=== PATIENT | female | born 1935 | race Caucasian/White ===

== ENCOUNTER → 2016-08-23 | Outpatient (CLI) | payer MEDICARE ==
[~2016-08-23] MED LIST: SODIUM CHLORIDE 0.9% 250 ML in EMPTY BAG 1 BAG IV PRN; SODIUM CHLORIDE 0.9% 500 ML in EMPTY BAG 1 BAG IV PRN; ZOLEDRONIC ACID 5 MG in SODIUM CHLORIDE 0.9% 100 ML IV ONE
[2016-08-23 07:56] VITALS: BP 125/58; PULSE 53; RESP 16; TEMP 97.8
== END | disposition home or self-care (01) ==
LOC: PROCWHC3 07:44
PROVIDERS: ATTEND Internal Medicine Rheumatology
DX: M81.0 Age-related osteoporosis without current pathological fracture (principal)
CPT/HCPCS: 96365; J3489

== ENCOUNTER → 2016-11-26 | Outpatient (CLI) | payer MEDICARE ==
--- NOTE | 2016-11-26 14:37 | MR ---
EXAMINATION TYPE: MR thoracic spine wo/w con DATE OF EXAM: 11/26/2016 COMPARISON: 11/16/2010 HISTORY: radiculopathy tsp CONTRAST: Standard multiplanar, multisequence MRI departmental protocol utilizing 7.5 mL intravenous Gadavist g adolinium contrast. FINDINGS: T2/T1 hyperintense vertebral body hemangiomas are again seen at T3, C6, C7 and T12. There i s redemonstration of compression deformity of the T11 vertebral body with unchanged height loss of ap proximately 50% and 2.4 mm retropulsion. This creates mild spinal canal stenosis at this level. No ab normal cord signal is seen at this level. Multilevel degenerative endplate changes are seen, most pronounced at the T10 inferior endplate just superior to the compression deformity. No abnormal bone marrow signal is seen as well as no abnormal enhancement. Exams overall unchanged with no new compression fractures or disc herniation. Anterior spondylosis is again seen. Again mild degenerative disc disease is present throughout the lumbar spine. IMPRESSION: 1. Unchanged compression deformity of the T11 vertebral body with approximately 50% height loss and 2 .4 mm retropulsion crating mild spinal canal stenosis. No abnormal enhancement or abnormal spinal cor d signal. 2. Mild multilevel degenerative disc disease without focal disc herniation. No progression from the p rior exam.
== END | disposition home or self-care (01) ==
LOC: RADMRIMAIN 07:09
PROVIDERS: ATTEND Anesthesiology
DX: M51.14 Intervertebral disc disorders with radiculopathy, thoracic region (principal); M43.8X4 Other specified deforming dorsopathies, thoracic region
CPT/HCPCS: 72157; A9581

== ENCOUNTER → 2016-12-16 | Outpatient (CLI) | payer MEDICARE ==
--- NOTE | 2016-12-17 14:23 | MM ---
Reason for exam: screening (asymptomatic). Last mammogram was performed 1 year and 1 month ago. History: Patient is postmenopausal. Family history of premenopausal breast cancer in sister and breast cancer in mother. Benign excisional biopsy of the left breast, 1963. Benign excisional biopsy of the left breast, 1961. Took estrogen for 1 year beginning at age 52. Physical Findings: A clinical breast exam by your physician is recommended on an annual basis and results should be correlated with mammographic findings. MG 3D Screening Mammo W/Cad Bilateral CC and MLO view(s) were taken. Prior study comparison: November 03, 2015, bilateral MG 3d screening mammo w/cad. October 31, 2014, bilateral MG screening mammo w CAD. No suspicious abnormality. Chronic left upper outer quadrant skin retraction similar to 11/25/11. No significant changes when compared with prior studies. ASSESSMENT: Benign, BI-RAD 2 RECOMMENDATION: Routine screening mammogram of both breasts in 1 year.
== END ==
LOC: RADMAMWWP 10:17
PROVIDERS: ATTEND Obstetrics & Gynecology
DX: Z12.31 Encounter for screening mammogram for malignant neoplasm of breast (principal)
CPT/HCPCS: 77063; G0202

== ENCOUNTER → 2017-07-02 | Outpatient (CLI) | payer MEDICARE ==
--- NOTE | 2017-07-02 10:21 | MR ---
EXAMINATION TYPE: MR brain wo/w con DATE OF EXAM: 07/02/2017 10:02 AM COMPARISON: Previous CT scan of the brain dated 12/15/2015 HISTORY: Dizziness, unsteady gait TECHNIQUE: Multiplanar, multiecho imaging of the brain was obtained with and without intravenous adm inistration of 7.5 mL intravenous Gadavist. FINDINGS: There are mild, generalized changes of sulcal prominence and ventriculomegaly, compatible w ith atrophic change. Midline structures are unremarkable. There is a normal craniocervical junction. Echoplanar diffusion imaging is normal. There are normal vascular flow voids. The orbits are unremarkable. There is no evidence of a CP angle mass lesion. There is a prominent Virchow-Minnie space on the left, unchanged from the patient's previous CT scan. There is an area of encephalomalacia in the posterior right parietal lobe. There is mild ex vacuo enl argement of the occipital horn of the lateral ventricle. There is both diffuse and punctate periventr icular white matter change. There is no mass effect, midline shift or intracranial blood. IMPRESSION: 1. NO ACUTE INTRACRANIAL ABNORMALITY. 2. ATROPHIC CHANGE. 3. BOTH PUNCTATE AND CONFLUENT PERIVENTRICULAR WHITE MATTER CHANGE, MOST LIKELY ON THE BASIS OF SMALL VESSEL DISEASE AND CHRONIC ISCHEMIC CHANGE. OTHER CAUSES OF DEMYELINATION ARE NOT EXCLUDED. 4. 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 5. 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
== END | disposition home or self-care (01) ==
LOC: RADMRIMAIN 08:38
PROVIDERS: ATTEND Internal Medicine Hematology & Oncology
DX: G31.9 Degenerative disease of nervous system, unspecified (principal); R90.89 Other abnormal findings on diagnostic imaging of central nervous system; R42 Dizziness and giddiness; R26.81 Unsteadiness on feet
CPT/HCPCS: 82565; 70553; 36415; A9581

== ENCOUNTER → 2017-09-30 | Outpatient (CLI) | payer MEDICARE, BC ==
[2017-09-30 14:56] LABS: INR 1.5 (<1.2); Partial Thromboplastin Time 31.7 sec (22.0-30.0); Prothrombin Time 14.1 sec (9.0-12.0)
[2017-09-30 15:03] LABS: ALT 68 U/L (9-52); AST 57 U/L (14-36); Albumin 3.3 g/dL (3.5-5.0); Alkaline Phosphatase 59 U/L (38-126); Anion Gap 9 mmol/L; Blood Urea Nitrogen 13 mg/dL (7-17); Calcium 8.6 mg/dL (8.4-10.2); Carbon Dioxide 25 mmol/L (22-30); Chloride 105 mmol/L (98-107); Glucose 175 mg/dL (74-99); Potassium 4.4 mmol/L (3.5-5.1); Sodium 139 mmol/L (137-145); Total Bilirubin 0.5 mg/dL (0.2-1.3); Total Protein 5.5 g/dL (6.3-8.2)
[2017-09-30 20:24] LABS: Cardiolipin Ab IgG Interp NEGATIVE (NEGATIVE); Cardiolipin Ab IgM Interp NEGATIVE (NEGATIVE); Cardiolipin IgA Antibody 0.6 U/mL; Cardiolipin IgM Antibody 0.4 U/mL
[2017-10-01 00:30] LABS: Hemoglobin A1C 5.1 % (4.0-6.0)
[2017-10-03 13:43] LABS: APTT 53 Sec(s) (<43); APTT 1:1 Mix 45 Sec(s) (<43); DRVVT 1:1 Mix 63 Sec(s) (<44); DRVVT Confirmation Positive (Negative); Dilute Russell Viper Venom 92 Sec(s) (<44); Hexagonal Phase Neutralization Negative (Negative)
== END | disposition home or self-care (01) ==
LOC: LABWHC1 14:24
PROVIDERS: ATTEND Internal Medicine Rheumatology
DX: I67.9 Cerebrovascular disease, unspecified (principal); M81.0 Age-related osteoporosis without current pathological fracture
CPT/HCPCS: 36415; 80053; 82607; 82747; 83036; 83090; 85598; 85610; 85613; 85652; 85730; 85732; 86147

== ENCOUNTER → 2017-10-13 | Outpatient (CLI) | payer MEDICARE, BC ==
[~2017-10-13] MED LIST changes: -SODIUM CHLORIDE 0.9% 250 ML in EMPTY BAG 1 BAG IV PRN; +ZOLEDRONIC ACID 5 MG in SODIUM CHLORIDE 0.9% 100 ML IV NR; -ZOLEDRONIC ACID 5 MG in SODIUM CHLORIDE 0.9% 100 ML IV ONE
[2017-10-13 14:35] VITALS: BP 115/72; PULSE 74; RESP 18; TEMP 97.4
== END | disposition home or self-care (01) ==
LOC: PROCWHC3 13:51
PROVIDERS: ATTEND Internal Medicine Rheumatology
DX: M81.0 Age-related osteoporosis without current pathological fracture (principal)
CPT/HCPCS: 96365; J3489

== ENCOUNTER → 2018-06-26 | Outpatient (CLI) | payer MEDICARE, BC ==
--- NOTE | 2018-06-26 16:49 | BD ---
EXAMINATION TYPE: Axial Bone Density DATE OF EXAM: 06/26/2018 COMPARISON: NONE CLINICAL HISTORY: Height: 5 ft 3 in Weight: 171 FRAX RISK QUESTIONS: History of Fracture in Adulthood: YES Secondary Osteoporosis: 3. Menopause before 45: YES RISK FACTORS HISTORY OF: Surgery to Spine/Hip(right/left)/Wrist (right/left): FX TO RT FEMUR METAL GOES INTO RT HIP When: 6-7 YEARS AGO Active: YES Postmenopausal woman: PART HYST AGE 34 Lost more than 2 inches in height since high school: UNSURE MEDICATIONS: Additional Medications: METOPROLOLTARTRATE ,GABAPENTIN,XARELTO, HYDROCODONE, AMTITRIPTYLINE, VIT D3, CALCIUM, MECLIZINE, FOCUS MACULAPRO, ROPINIROLE HC, Additional History: EXAM MEASUREMENTS: Bone mineral densitometry was performed using the [employer] System. Bone mineral density as measured about the Lumbar spine is: ----- L1-L4(G/cm2): 0.803 T Score Values are as follows: ----- L2: -3.2 ----- L3: -2.9 ----- L4: -2.9 ----- L1-L4: -3.1 Bone mineral density has: INCREASED 3.1 % since study of: 2015 Bone mineral density about the L hip (g/cm2): 0.665 T Score values are as follows: -----L Neck: -2.7 -----L Total: -2.4 Bone mineral density has: INCREASED 2.5 % since study of: 2015 IMPRESSION: Osteoporosis (T Score less than -2.5). There is increased fracture risk and therapy is usually indicated based on age. Re-Screen 1-2 years. NOTE: T-SCORE=SD OF THE YOUNG ADULT MEAN.
== END | disposition home or self-care (01) ==
LOC: RADBDWWP 09:40
PROVIDERS: ATTEND Internal Medicine Rheumatology
DX: M81.0 Age-related osteoporosis without current pathological fracture (principal)
CPT/HCPCS: 77080

== ENCOUNTER → 2018-10-24 | Outpatient (CLI) | payer MEDICARE, BC ==
[2018-10-24 19:14] LABS: African American GFR (CKD) 94.8 (60.0-200.0); Albumin 3.4 g/dL (3.80-4.90); Albumin/Globulin Ratio 2.13 (1.60-3.17); BUN/Creat Ratio 18.57 Ratio (12.00-20.00); Calcium 8.1 mg/dL (8.7-10.3); Globulin 1.6 g/dL (1.6-3.3); Non-African American GFR(CKD) 81.8 (60.0-200.0); Potassium 4.6 mmol/L (3.5-5.5); Total Bilirubin 0.3 mg/dL (0.2-1.2)
== END | disposition home or self-care (01) ==
LOC: LABWHC1 10:05
PROVIDERS: ATTEND Internal Medicine Rheumatology
DX: G89.4 Chronic pain syndrome (principal)
CPT/HCPCS: 36415; 80053

== ENCOUNTER → 2019-01-01 | Outpatient (CLI) | payer MEDICARE, BC ==
[~2019-01-01] MED LIST changes: +SODIUM CHLORIDE 0.9% 500 ML 500 ML in EMPTY BAG 1 BAG IV PRN; -SODIUM CHLORIDE 0.9% 500 ML in EMPTY BAG 1 BAG IV PRN
[2019-01-01 09:26] VITALS: BP 97/64; PULSE 76; RESP 18; TEMP 97.8
== END | disposition home or self-care (01) ==
LOC: PROCWHC3 09:08
PROVIDERS: ATTEND Internal Medicine Rheumatology
DX: M81.0 Age-related osteoporosis without current pathological fracture (principal)
CPT/HCPCS: 96365; J3489

== ENCOUNTER 2019-06-24 11:07 | Inpatient (IN) | payer BC, MEDICARE ==
[2019-06-24] MEDS ORDERED: SODIUM CHLORIDE 0.9% 1,000 ML IV STA (11:36)
[2019-06-24] MEDS ORDERED: SODIUM CHLORIDE 0.9% 500 ML 500 ML IV STA (11:36)
[2019-06-24 12:28] LABS: Potassium 3.9 mmol/L (3.5-5.1)
[2019-06-24 12:29] LABS: ALT 22 U/L (4-34); AST 32 U/L (14-36); African American GFR (CKD) >90 (>60 ml/min/1.73 sqM); Albumin 2.6 g/dL (3.5-5.0); Alkaline Phosphatase 58 U/L (38-126); Anion Gap 9 mmol/L; Basophils % (A) 0 %; Blood Urea Nitrogen 14 mg/dL (7-17); Calcium 8.2 mg/dL (8.4-10.2); Carbon Dioxide 25 mmol/L (22-30); Chloride 102 mmol/L (98-107); Creatine Kinase 25 U/L (30-135); Eosinophils % (A) 1 %; Glucose 91 mg/dL (74-99); HCT 45.9 % (34.0-46.0); HGB 14.6 gm/dL (11.4-16.0); Lymphocytes # (A) 0.8 k/uL (1.0-4.8); Lymphocytes % (A) 17 %; MCH 33.9 pg (25.0-35.0); MCHC 31.7 g/dL (31.0-37.0); Macrocytosis Moderate; Magnesium 1.7 mg/dL (1.6-2.3); Mean Platelet Volume 15.1; Monocytes # (A) 0.4 k/uL (0-1.0); Monocytes % (A) 8 %; Neutrophils # (A) 3.6 k/uL (1.3-7.7); Neutrophils % (A) 73 %; Non-African American GFR(CKD) 84 (>60 ml/min/1.73 sqM); Platelet Count 123 k/uL (150-450); RBC 4.29 m/uL (3.80-5.40); RDW 14.1 % (11.5-15.5); Sodium 136 mmol/L (137-145); Total Bilirubin 1.4 mg/dL (0.2-1.3); Total Protein 5.3 g/dL (6.3-8.2); WBC 4.9 k/uL (3.8-10.6)
[2019-06-24 12:31] LABS: INR 1.6 (<1.2); Prothrombin Time 15.8 sec (9.0-12.0)
[2019-06-24 12:33] LABS: Appearance,Urine Turbid (Clear); Bacteria,Urine Few /hpf; Bilirubin,Urine Negative (Negative); Blood,Urine Small (Negative); Color,Urine Yellow; Glucose,Urine (UA) Negative (Negative); Hyaline Casts,Urine 22 /lpf (0-2); Ketones,Urine 1+ (Negative); Leukocyte Esterase,Urine Large (Negative); Mucus,Urine Many /hpf; Nitrite,Urine Negative (Negative); PH, Urine 5.5 (5.0-8.0); Protein,Urine 1+ (Negative); RBC,Urine 20 /hpf (0-5); Specific Gravity,Urine 1.025 (1.001-1.035); Squamous Epithelial Cell,Urine 2 /hpf (0-4); WBC,Urine >182 /hpf (0-5)
--- NOTE | 2019-06-24 12:40 | CT ---
EXAMINATION TYPE: CT brain wo con DATE OF EXAM: 06/24/2019 COMPARISON: Previous study dated 12/15/2015. HISTORY: Head trauma, minor, normal mental status CT DLP: 1099.4 mGycm Automated exposure control for dose reduction was used. FINDINGS: There are generalized changes of sulcal prominence and ventriculomegaly, compatible with mild atrophy . There is diffuse periventricular white matter lucency, compatible with small vessel ischemic change . There is no acute focal lesion, mass effect or midline shift identified. I do not see evidence of i ntracranial blood. 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 This is unchanged fr om previous. Visualized portions of the paranasal sinuses are clear. There is been a previous mastoidectomy on the right. There is a small defect in the posterior parietal region on the right. This was also present previously. IMPRESSION: 1. NO ACUTE INTRACRANIAL ABNORMALITY. 2. 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 3. POSTSURGICAL CHANGE. 4. DEGENERATIVE CHANGE.
--- NOTE | 2019-06-24 12:47 | XR ---
EXAMINATION TYPE: XR chest 2V DATE OF EXAM: 06/24/2019 HISTORY: Weakness. REFERENCE: None.. FINDINGS: Heart is upper limits of normal in size. There is increased opacity in both lung apices whi ch may be secondary to the lordotic projection. There is also some questionable increased density in the lower lobes bilaterally. I could not exclude developing pneumonia. Pleural spaces are clear. IMPRESSION: 1. BORDERLINE CARDIOMEGALY. 2. I COULD NOT EXCLUDE DEVELOPING INFILTRATES BILATERALLY.
[2019-06-24 13:06] LABS: Large Platelets Present
[2019-06-24] MEDS ORDERED: cefTRIAXone IN SWFI 1,000 MG/10 ML SYRINGE IVP STA (13:21)
--- NOTE | 2019-06-24 13:22 | ED ---
Weakness HPI - General Chief complaint: Weakness Stated complaint: weakness Time Seen by Provider: 06/24/19 11:19 Source: patient, family, RN notes reviewed Mode of arrival: ambulatory Limitations: physical limitation - History of Present Illness Initial comments: This is a 83-year-old female who presents today with complaints of weakness is been 4 month. She has recently moved back from [place] and has had progressively more weakness decreased appetite decrease oral intake. No overt fevers chills or sweats no overt cough or phlegm production reported this time. She did fall yesterday and today she did strike her head against a door no focal weakness reported. No neck pain. No chest back or abdominal pain at this time. Has had some decreased urine output. No other complaints at this time she just feels weak and doesn't feel good. Additionally she has gained a couple pounds recently in spite of not eating MD Complaint: generalized weakness - Related Data Home Medications Medication Instructions Recorded Confirmed Amitriptyline HCl [Elavil] 75 tab PO HS 10/13/17 06/24/19 Calcium Carbonate/Vitamin D3 1 tab PO DAILY 10/13/17 06/24/19 [Caltrate 600 Plus D3 Tablet] Cholecalciferol [Vitamin D3] 5,000 unit PO DAILY 10/13/17 06/24/19 Gabapentin 300 mg PO QAM 10/13/17 06/24/19 HYDROcodone/APAP 10-325MG [[place] 1 tab PO TID 10/13/17 06/24/19 10-325] Maculapro 1 tab PO DAILY 10/13/17 06/24/19 Meclizine [Antivert] 25 mg PO TID PRN 10/13/17 06/24/19 Metoprolol Tartrate [Lopressor] 50 mg PO BID 10/13/17 06/24/19 Rivaroxaban [Xarelto] 20 mg PO DAILY 10/13/17 06/24/19 rOPINIRole HCL [Requip] 0.5 mg PO QAM 10/13/17 06/24/19 Ergocalciferol (Vitamin D2) 50,000 unit PO ROSS 06/24/19 06/24/19 [Drisdol] Gabapentin 900 mg PO HS 06/24/19 06/24/19 Mirtazapine 7.5 mg PO W/SUPPER 06/24/19 06/24/19 rOPINIRole HCL [Requip] 1 mg PO HS 06/24/19 06/24/19 valACYclovir HCL [Valacyclovir] 1,000 mg PO DAILY 06/24/19 06/24/19 Allergies Allergy/AdvReac Type Severity Reaction Status Date / Time No Known Allergies Allergy Verified 06/24/19 12:03 Review of Systems ROS Statement: Those systems with pertinent positive or pertinent negative responses have been documented in the HPI. ROS Other: All systems not noted in ROS Statement are negative. Past Medical History Past Medical History: Atrial Fibrillation, CVA/TIA, Osteoarthritis (OA) Additional Past Medical History / Comment(s): RLS, CHRONIC PAIN, VERTIGO, MACULAR DEGENERATION History of Any Multi-Drug Resistant Organisms: None Reported Past Surgical History: Adenoidectomy, Appendectomy, Cholecystectomy, Hernia Repair, Hysterectomy, Orthopedic Surgery, Tonsillectomy Additional Past Surgical History / Comment(s): baiatric surgery Past Psychological History: Depression Smoking Status: Never smoker Past Alcohol Use History: None Reported Past Drug Use History: None Reported General Exam - General Exam Comments Initial Comments: This is a well-developed sec appearing female who was awake alert oriented 3 Limitations: physical limitation General appearance: alert, in no apparent distress Head exam: Present: atraumatic, normocephalic, normal inspection Eye exam: Present: normal appearance, PERRL, EOMI. Absent: scleral icterus, conjunctival injection, periorbital swelling ENT exam: Present: mucous membranes dry Neck exam: Present: normal inspection, full ROM, other (No stridor JVD or bruits). Absent: tenderness, meningismus, lymphadenopathy Respiratory exam: Present: decreased breath sounds. Absent: respiratory distress, wheezes, rales, rhonchi, stridor Cardiovascular Exam: Present: tachycardia, irregular rhythm, rubs (Transferred over the mitral valve region). Absent: diastolic murmur, gallop, clicks GI/Abdominal exam: Present: soft, normal bowel sounds. Absent: distended, tenderness, guarding, rebound, rigid Extremities exam: Present: full ROM, normal capillary refill, pedal edema. Absent: tenderness, joint swelling, calf tenderness Back exam: Present: normal inspection Neurological exam: Present: alert, oriented X3, CN II-XII intact Psychiatric exam: Present: normal affect, normal mood Skin exam: Present: warm, dry, intact, normal color. Absent: rash Course Vital Signs 06/24/19 06/24/19 06/24/19 11:10 11:35 12:40 Temperature 97.7 F Pulse Rate 121 H 102 H 98 Respiratory 18 20 20 Rate Blood Pressure 122/79 O2 Sat by Pulse 97 96 96 Oximetry Medical Decision Making - Medical Decision Making I did discuss the findings with the patient as well as her daughter and with Dr. Bolaños. Patient will be admitted for inpatient evaluation evidence of UTI sepsis failure to thrive. Additionally atrial fibrillation with possible pericarditis. - Lab Data Result diagrams: 06/24/19 12:03 06/24/19 12:03 Lab Results 06/24/19 06/24/19 06/24/19 Range/Units 12:03 12:03 12:03 WBC 4.9 (3.8-10.6) k/uL RBC 4.29 (3.80-5.40) m/uL Hgb 14.6 (11.4-16.0) gm/dL Hct 45.9 (34.0-46.0) % MCV 107.0 H (80.0-100.0) fL MCH 33.9 (25.0-35.0) pg MCHC 31.7 (31.0-37.0) g/dL RDW 14.1 (11.5-15.5) % Plt Count 123 L (150-450) k/uL Neutrophils % 73 % Lymphocytes % 17 % Monocytes % 8 % Eosinophils % 1 % Basophils % 0 % Neutrophils # 3.6 (1.3-7.7) k/uL Lymphocytes # 0.8 L (1.0-4.8) k/uL Monocytes # 0.4 (0-1.0) k/uL Eosinophils # 0.0 (0-0.7) k/uL Basophils # 0.0 (0-0.2) k/uL Manual Slide Review Performed Large Platelets Present Macrocytosis Moderate PT 15.8 H (9.0-12.0) sec INR 1.6 H (<1.2) Sodium (137-145) mmol/L Potassium (3.5-5.1) mmol/L Chloride (98-107) mmol/L Carbon Dioxide (22-30) mmol/L Anion Gap mmol/L BUN (7-17) mg/dL Creatinine (0.52-1.04) mg/dL Est GFR (CKD-EPI)AfAm (>60 ml/min/1.73 sqM) Est GFR (CKD-EPI)NonAf (>60 ml/min/1.73 sqM) Glucose (74-99) mg/dL Calcium (8.4-10.2) mg/dL Magnesium (1.6-2.3) mg/dL Total Bilirubin (0.2-1.3) mg/dL AST (14-36) U/L ALT (4-34) U/L Alkaline Phosphatase (38-126) U/L Creatine Kinase (30-135) U/L Troponin I (0.000-0.034) ng/mL NT-Pro-B Natriuret Pep pg/mL Total Protein (6.3-8.2) g/dL Albumin (3.5-5.0) g/dL Lipase (23-300) U/L Urine Color Yellow Urine Appearance Turbid H (Clear) Urine pH 5.5 (5.0-8.0) Ur Specific [place] 1.025 (1.001-1.035) Urine Protein 1+ H (Negative) Urine Glucose (UA) Negative (Negative) Urine Ketones 1+ H (Negative) Urine Blood Small H (Negative) Urine Nitrite Negative (Negative) Urine Bilirubin Negative (Negative) Urine Urobilinogen 3.0 (<2.0) mg/dL Ur Leukocyte Esterase Large H (Negative) Urine RBC 20 H (0-5) /hpf Urine WBC >182 H (0-5) /hpf Urine WBC Clumps Few H (None) /hpf Ur Squamous Epith Cells 2 (0-4) /hpf Urine Bacteria Few H (None) /hpf Hyaline Casts 22 H (0-2) /lpf Urine Mucus Many H (None) /hpf 06/24/19 06/24/19 06/24/19 Range/Units 12:03 12:03 12:03 WBC (3.8-10.6) k/uL RBC (3.80-5.40) m/uL Hgb (11.4-16.0) gm/dL Hct (34.0-46.0) % MCV (80.0-100.0) fL MCH (25.0-35.0) pg MCHC (31.0-37.0) g/dL RDW (11.5-15.5) % Plt Count (150-450) k/uL Neutrophils % % Lymphocytes % % Monocytes % % Eosinophils % % Basophils % % Neutrophils # (1.3-7.7) k/uL Lymphocytes # (1.0-4.8) k/uL Monocytes # (0-1.0) k/uL Eosinophils # (0-0.7) k/uL Basophils # (0-0.2) k/uL Manual Slide Review Large Platelets Macrocytosis PT (9.0-12.0) sec INR (<1.2) Sodium 136 L (137-145) mmol/L Potassium 3.9 (3.5-5.1) mmol/L Chloride 102 (98-107) mmol/L Carbon Dioxide 25 (22-30) mmol/L Anion Gap 9 mmol/L BUN 14 (7-17) mg/dL Creatinine 0.65 (0.52-1.04) mg/dL Est GFR (CKD-EPI)AfAm >90 (>60 ml/min/1.73 sqM) Est GFR (CKD-EPI)NonAf 84 (>60 ml/min/1.73 sqM) Glucose 91 (74-99) mg/dL Calcium 8.2 L (8.4-10.2) mg/dL Magnesium 1.7 (1.6-2.3) mg/dL Total Bilirubin 1.4 H (0.2-1.3) mg/dL AST 32 (14-36) U/L ALT 22 (4-34) U/L Alkaline Phosphatase 58 (38-126) U/L Creatine Kinase 25 L (30-135) U/L Troponin I <0.012 (0.000-0.034) ng/mL NT-Pro-B Natriuret Pep 1720 pg/mL Total Protein 5.3 L (6.3-8.2) g/dL Albumin 2.6 L (3.5-5.0) g/dL Lipase 36 (23-300) U/L Urine Color Urine Appearance (Clear) Urine pH (5.0-8.0) Ur Specific [place] (1.001-1.035) Urine Protein (Negative) Urine Glucose (UA) (Negative) Urine Ketones (Negative) Urine Blood (Negative) Urine Nitrite (Negative) Urine Bilirubin (Negative) Urine Urobilinogen (<2.0) mg/dL Ur Leukocyte Esterase (Negative) Urine RBC (0-5) /hpf Urine WBC (0-5) /hpf Urine WBC Clumps (None) /hpf Ur Squamous Epith Cells (0-4) /hpf Urine Bacteria (None) /hpf Hyaline Casts (0-2) /lpf Urine Mucus (None) /hpf - EKG Data -: EKG Interpreted by Me EKG Comments: EKG shows a atrial fibrillation with a response rate of 98 QRS 94 QT since QTC 328/418 nonspecific T-wave configuration - Radiology Data Radiology results: report reviewed (I did review the imaging and report or is evidence of early bilateral infiltrates the cavity ruled out), image reviewed Disposition Clinical Impression: Urinary tract infection, Dehydration, Failure to thrive syndrome, adult, Pericarditis, Pneumonitis, Atrial fibrillation Disposition: ADMITTED IP TO THIS HOSP Condition: Fair Referrals: Vandana Guevara MD [Primary Care Provider] - 1-2 days
[2019-06-24] MEDS ORDERED: NALOXONE 0.4 MG/ML 1 ML VIAL IV PRN (14:29)
[2019-06-24] MEDS ORDERED: MECLIZINE 25 MG TAB PO PRN (14:31)
[2019-06-24] MEDS ORDERED: ERGOCALCIFEROL 50,000 UNIT CAP PO SCH (15:00)
[2019-06-24] MEDS: HYDROcodone/APAP 10-325MG 1 EACH TAB PO PRN (17:16)
[2019-06-24] MEDS: MIRTAZAPINE 15 MG TAB PO SCH (17:16)
[2019-06-24] MEDS: AMITRIPTYLINE HCL 25 MG TAB PO SCH (20:50)
[2019-06-24] MEDS: METOPROLOL TARTRATE 50 MG TAB PO SCH (20:50)
[2019-06-24] MEDS: GABAPENTIN 300 MG CAP PO SCH (20:50)
--- NOTE | 2019-06-24 21:03 | P.HPIM ---
History of Present Illness H&P Date: 06/24/19 Chief Complaint: Altered mental status, UTI with sepsis, severe generalized weakness, 83-year-old female one of Dr. Guevara's patient with past medical history of CVA, A. fib with RVR, chronic pain syndrome, chronic depression who returned back from [place] with history of 4 month of severe generalized weakness and fatigue with decrease of appetite no fever or chills decrease in urine output severe abnormal balancing gait had fall twice last 24 hours with no major injury hit her head on the door side with no major bruise or hematoma developed to have mild headache with no neck injury. Patient family were overconcern with a significant weight loss apparently made an appointment to see her primary care with some workup did not show any major abnormality. Patient ended up in the emergency department at [facility] today with above complaint was seen and evaluated her white blood cell was normal with the exception of mild thrombocytopenia her urine came back very positive with multiple RBC WBC and leukocyte nitrate positive culture is pending patient was giving 1 dose of IV antibiotics will be admitted to the hospital, CAT scan of the brain didn't show any intracranial hemorrhage but showed an old infarct in the right posterior part of total area which consistent with old stroke also had a scar tissue from mastoidectomy. Chest x-ray showed cardiomegaly with bilateral infiltrate in the bases and as an early pneumonitis. Patient is not running any fever or chills no significant shortness of breath at this point or productive cough. Review of Systems CONSTITUTIONAL: Well-developed no acute respiratory distress. EYES: No icterus sclerae, no conjunctivitis. EARS, NOSE, MOUTH, THROAT, and FACE: No sore throat, lymphadenopathy, carotid bruits or deformity. RESPIRATORY: No SOB cough or wheezes. CARDIOVASCULAR: No CP, Palpitation, PND, Orthopnea, or angina. GASTROINTESTINAL: No Abd pain, Nausea or vomiting, no Diarrhea or constipation, No GI Bleed, no distention or masses. GENITOURINARY: UTI with burning discomfort irritation and frequency. INTEGUMENT/BREAST: Negative for any muscular injury with mild osteoarthritis.. HEMATOLOGIC/LYMPHATIC: Negative for bleed or purpura. MUSCULOSKELTAL: Negative for Myalgia or arthralgia. NEURLOGICAL: Mild altered mental status with slight confusion at time generalized weakness no focal deficit. BEHAVIORAL/PSYCH: Negative. ENDOCRINE: Negative. Past Medical History Past Medical History: Atrial Fibrillation, CVA/TIA, Osteoarthritis (OA) Additional Past Medical History / Comment(s): RLS, CHRONIC PAIN, VERTIGO, M ACULAR DEGENERATION History of Any Multi-Drug Resistant Organisms: None Reported Past Surgical History: Adenoidectomy, Appendectomy, Cholecystectomy, Hernia Repair, Hysterectomy, Orthopedic Surgery, Tonsillectomy Additional Past Surgical History / Comment(s): baiatric surgery Past Psychological History: Depression Smoking Status: Never smoker Past Alcohol Use History: None Reported Past Drug Use History: None Reported - Past Family History Mother History Unknown: Yes Medications and Allergies Home Medications Medication Instructions Recorded Confirmed Type Amitriptyline HCl [Elavil] 75 tab PO HS 10/13/17 06/24/19 History Calcium Carbonate/Vitamin D3 1 tab PO DAILY 10/13/17 06/24/19 History [Caltrate 600 Plus D3 Tablet] Cholecalciferol [Vitamin D3] 5,000 unit PO DAILY 10/13/17 06/24/19 History Gabapentin 300 mg PO QAM 10/13/17 06/24/19 History HYDROcodone/APAP 10-325MG [[place] 1 tab PO TID 10/13/17 06/24/19 History 10-325] Maculapro 1 tab PO DAILY 10/13/17 06/24/19 History Meclizine [Antivert] 25 mg PO TID PRN 10/13/17 06/24/19 History Metoprolol Tartrate [Lopressor] 50 mg PO BID 10/13/17 06/24/19 History Rivaroxaban [Xarelto] 20 mg PO DAILY 10/13/17 06/24/19 History rOPINIRole HCL [Requip] 0.5 mg PO QAM 10/13/17 06/24/19 History Ergocalciferol (Vitamin D2) 50,000 unit PO ROSS 06/24/19 06/24/19 History [Drisdol] Gabapentin 900 mg PO HS 06/24/19 06/24/19 History Mirtazapine 7.5 mg PO W/SUPPER 06/24/19 06/24/19 History rOPINIRole HCL [Requip] 1 mg PO HS 06/24/19 06/24/19 History valACYclovir HCL [Valacyclovir] 1,000 mg PO DAILY 06/24/19 06/24/19 History Allergies Allergy/AdvReac Type Severity Reaction Status Date / Time No Known Allergies Allergy Verified 06/24/19 12:03 Physical Exam Vitals: Vital Signs Temp Pulse Pulse Resp BP BP Pulse Ox 06/24/19 16:20 97.9 F 115 H 109/73 100 06/24/19 14:49 102 H 18 127/81 97 06/24/19 12:40 98 20 96 06/24/19 11:35 102 H 20 96 06/24/19 11:10 97.7 F 121 H 18 122/79 97 Intake and Output 06/24/19 06/24/19 06/24/19 06:59 14:59 22:59 Intake Total 0 Balance 0 Intake: Oral 0 Other: Weight 69.853 kg 69.853 kg General Appearance: Alert, cooperative, no distress, appears stated age. Neck HEENT: Supple, no lymphadenopathy, no thyroid enlargement, no carotid bruits. Lungs: Clear to auscultation without crackles or wheezes no rhonchi, no deformity. Chest Wall: Chest wall normal expansion with deep inspiration no tenderness and no deformity was found on exam, no costochondral pain or discomfort. Heart: Irregular rate and rhythm, S1, S2, positive S3 positive JVD. Back: Symmetric, no curvature, ROM normal, no CVA tenderness. Abdomen: Soft, non-tender, bowel sounds active all four quadrants, no masses, no organomegaly. Extremities: Extremities normal, atraumatic, no cyanosis or edema. Pulses: 2+ and symmetric. Skin: Skin color, texture, tugor normal, no rashes or lesions. Neurologic: Alert oriented with slight confusion, cranial nerves II through XII intact, no motor deficit, slight abnormal balancing gait with generalized weakness overall. Results CBC & Chem 7: 06/24/19 12:03 06/24/19 12:03 Labs: Abnormal Lab Results - Last 24 Hours (Table) 06/24/19 06/24/19 06/24/19 Range/Units 12:03 12:03 12:03 MCV 107.0 H (80.0-100.0) fL Plt Count 123 L (150-450) k/uL Lymphocytes # 0.8 L (1.0-4.8) k/uL PT 15.8 H (9.0-12.0) sec INR 1.6 H (<1.2) Sodium (137-145) mmol/L Calcium (8.4-10.2) mg/dL Total Bilirubin (0.2-1.3) mg/dL Creatine Kinase (30-135) U/L Total Protein (6.3-8.2) g/dL Albumin (3.5-5.0) g/dL Urine Appearance Turbid H (Clear) Urine Protein 1+ H (Negative) Urine Ketones 1+ H (Negative) Urine Blood Small H (Negative) Ur Leukocyte Esterase Large H (Negative) Urine RBC 20 H (0-5) /hpf Urine WBC >182 H (0-5) /hpf Urine WBC Clumps Few H (None) /hpf Urine Bacteria Few H (None) /hpf Hyaline Casts 22 H (0-2) /lpf Urine Mucus Many H (None) /hpf 06/24/19 Range/Units 12:03 MCV (80.0-100.0) fL Plt Count (150-450) k/uL Lymphocytes # (1.0-4.8) k/uL PT (9.0-12.0) sec INR (<1.2) Sodium 136 L (137-145) mmol/L Calcium 8.2 L (8.4-10.2) mg/dL Total Bilirubin 1.4 H (0.2-1.3) mg/dL Creatine Kinase 25 L (30-135) U/L Total Protein 5.3 L (6.3-8.2) g/dL Albumin 2.6 L (3.5-5.0) g/dL Urine Appearance (Clear) Urine Protein (Negative) Urine Ketones (Negative) Urine Blood (Negative) Ur Leukocyte Esterase (Negative) Urine RBC (0-5) /hpf Urine WBC (0-5) /hpf Urine WBC Clumps (None) /hpf Urine Bacteria (None) /hpf Hyaline Casts (0-2) /lpf Urine Mucus (None) /hpf Microbiology - Last 24 Hours (Table) 06/24/19 12:03 Urine Culture - Preliminary Urine,Catheterized Thrombosis Risk Factor Assmnt - DVT/VTE Prophylaxis DVT/VTE Prophylaxis: Pharmacologic Prophylaxis ordered, Mechanical Prophylaxis ordered - Choose All That Apply Each Risk Factor Represents 3 Points: Age 75 years or older Thrombosis Risk Factor Assessment Total Risk Factor Score: 3 Thrombosis Risk Factor Assessment Level: Moderate Risk Assessment and Plan Assessment: 1 alter mental status: Most likely metabolic encephalopathy consistent with UTI and sepsis which probably was causing the generalized weakness and fatigue, also the possibility of stroke or mini stroke is not totally excluded at this point even patient had been follow watch and tested repeatedly. 2 sepsis and UTI: Patient is symptomatic currently with mild hypotension white blood cell is not elevated the platelets are significantly low, urine culture was done patient will be giving 1 g of Rocephin will continue IV antibiotics to the cultures back. 3 failure to thrive: Not clear etiology whether this is consistent with mild memory loss, UTI with encephalopathy or any other underlying problem is not a cleared this point we'll continue to watch symptoms closely patient still on mirtazapine continue nutrition and protein supplement. 4 chronic pain syndrome: Mostly from skeletal muscular and lower back pain, has been on [place] and gabapentin which to some degree I can contribute some of her symptoms are to elevate reveal gabapentin and [place] side effect address with patient and the family possibility of reducing medication if possible. 5 A. fib with RVR: Watch for any bradycardia patient has been on metoprolol 50 mg twice a day which has controlled the pulse rate is very well still on Xarelto 20 mg daily. 6 chronic neuropathy: Has been on total of 900 mg of gabapentin daily still on Elavil as well. A combination of the 2 is not a good option on the long run may be one of the idea to change patient from both to smaller dose of Lyrica 50 mg twice a day titrate to 75 mg twice a day as a total without having to combination of the 2 specially with the extra medication on board like the mirtazapine Requip and meclizine. 7 chronic history of macular degeneration: Has been on vitamin supplement still seen retina specialist regularly. 8 restless leg syndrome: Has been on Requip 1 mg daily at bedtime and 0.5 mg in the morning. 9 recurrent history of herpes: Patient has been on Valtrex 1 g daily which another medication should be probably slow down to 500 mg daily hours switch patient to a site [place] 400 mg a day for suppressive management on the long run specially for her age. 10 GI prophylaxis: Patient will be started on Pepcid 20 mg a day. 11 DVT prophylaxis: Remain on anticoagulation with Xarelto 20 mg a day. CODE STATUS: Full code. Admit patient to inpatient status for more than 2 nights.
[2019-06-24] MEDS ORDERED: traMADol 50 MG TAB PO SCH (22:00)
--- NOTE | 2019-06-24 22:54 | US ---
EXAMINATION TYPE: US carotid duplex BILAT DATE OF EXAM: 06/24/2019 COMPARISON: NONE CLINICAL HISTORY: TIA. EXAM MEASUREMENTS: RIGHT: Peak Systolic Velocity (PSV) cm/sec ----- Right CCA: 47.4 ----- Right ICA: 77.2 ----- Right ECA: 63.9 ICA/CCA ratio: 1.6 RIGHT: End Diastole cm/sec ----- Right CCA: 17.7 ----- Right ICA: 23.0 ----- Right ECA: 10.4 LEFT: Peak Systolic Velocity (PSV) cm/sec ----- Left CCA: 39.8 ----- Left ICA: 83.8 ----- Left ECA: 57.3 ICA/CCA ratio: 2.1 LEFT: End Diastole cm/sec ----- Left CCA: 11.3 ----- Left ICA: 30.7 ----- Left ECA: 8.8 VERTEBRALS (direction of flow): Right Vertebral: Antegrade Left Vertebral: Antegrade Rhythm: Normal Mild to moderate atherosclerotic plaque with no very slight velocity increase seen on left, no signi ficant velocity increase seen on right ICA's. IMPRESSION: There is antegrade flow in the vertebral arteries. The images and measurements suggest less than 50% stenosis in both internal carotid arteries and closer to 35%. Criteria for Assigning % of Stenosis / Diameter reduction (Estimation based on the indirect measurements of the internal carotid artery velocities (ICA PSV). 1. Normal (no stenosis)=ICA PSV < 125 cm/s: ratio < 2.0: ICA EDV<40 cm/s. 2. Less than 50% stenosis=ICA PSV < 125 cm/s: ratio < 2.0: ICA EDV<40 cm/s. 3. 50 to 69% stenosis=ICA PSV of 125 to 230 cm/s: ration 2.0 ? 4.0: ICA EDV 40-100 cm/s. 4. Greater than 70% stenosis to near occlusion= ICA PSV > 230 cm/s: ratio > 4.0: ICA EDV > 100 cm/s. 5. Near occlusion= ICA PSV velocities may be low or undetectable: variable ratio and ICA EDV. 6. Total occlusion=unable to detect flow.
[2019-06-25 06:56] LABS: Basophils % (A) 0 %; Eosinophils % (A) 1 %; HCT 38.7 % (34.0-46.0); Lymphocytes # (A) 1.1 k/uL (1.0-4.8); Lymphocytes % (A) 24 %; MCH 33.6 pg (25.0-35.0); Macrocytosis Marked; Mean Platelet Volume 14.3; Monocytes # (A) 0.4 k/uL (0-1.0); Monocytes % (A) 9 %; Neutrophils # (A) 2.9 k/uL (1.3-7.7); Neutrophils % (A) 63 %; RBC 3.57 m/uL (3.80-5.40); RDW 14.1 % (11.5-15.5); WBC 4.6 k/uL (3.8-10.6)
[2019-06-25 06:57] LABS: MCV 108.5 fL (80.0-100.0)
[2019-06-25 06:58] LABS: Platelet Count 103 k/uL (150-450)
[2019-06-25 07:27] LABS: ALT 18 U/L (4-34); AST 28 U/L (14-36); African American GFR (CKD) >90 (>60 ml/min/1.73 sqM); Alkaline Phosphatase 45 U/L (38-126); Anion Gap 5 mmol/L; Blood Urea Nitrogen 14 mg/dL (7-17); Calcium 7.4 mg/dL (8.4-10.2); Carbon Dioxide 25 mmol/L (22-30); Chloride 107 mmol/L (98-107); Glucose 65 mg/dL (74-99); Non-African American GFR(CKD) 87 (>60 ml/min/1.73 sqM); Potassium 4.2 mmol/L (3.5-5.1); Sodium 137 mmol/L (137-145); Total Bilirubin 0.7 mg/dL (0.2-1.3); Total Protein 4.3 g/dL (6.3-8.2)
[2019-06-25] MEDS ORDERED: [UNRECOGNIZED DRUG - OTHER] PO SCH (09:00)
[2019-06-25] MEDS: HYDROcodone/APAP 10-325MG 1 EACH TAB PO PRN ×2 (09:29→18:24)
[2019-06-25] MEDS: CALCIUM CARB-VIT D 500MG-200UN 1 EACH TAB PO SCH (09:29)
[2019-06-25] MEDS: CHOLECALCIFEROL 1,000 UNIT TAB PO SCH (09:30)
[2019-06-25] MEDS: FAMOTIDINE 20 MG TAB PO SCH (09:30)
[2019-06-25] MEDS: GABAPENTIN 300 MG CAP PO SCH ×2 (09:31→20:23)
[2019-06-25] MEDS: RIVAROXABAN 20 MG TAB PO SCH (09:31)
[2019-06-25] MEDS: METOPROLOL TARTRATE 50 MG TAB PO SCH ×2 (09:31→20:24)
[2019-06-25] MEDS: valACYclovir HCL 1,000 MG TABLET PO SCH (09:34)
--- NOTE | 2019-06-25 09:43 | P.PN ---
Subjective Progress Note Date: 06/25/19 83-year-old female one of Dr. Guevara's patient with past medical history of CVA, A. fib with RVR, chronic pain syndrome, chronic depression who returned back from [place] with history of 4 month of severe generalized weakness and fatigue with decrease of appetite no fever or chills decrease in ur ine output severe abnormal balancing gait had fall twice last 24 hours with no major injury hit her head on the door side with no major bruise or hematoma developed to have mild headache with no neck injury. Patient family were overconcern with a significant weight loss apparently made an appointment to see her primary care with some workup did not show any major abnormality. Patient ended up in the emergency department at [facility] today with above complaint was seen and evaluated her white blood cell was normal with the exception of mild thrombocytopenia her urine came back very positive with multiple RBC WBC and leukocyte nitrate positive culture is pending patient was giving 1 dose of IV antibiotics will be admitted to the hospital, CAT scan of the brain didn't show any intracranial hemorrhage but showed an old infarct in the right posterior part of total area which consistent with old stroke also had a scar tissue from mastoidectomy. Chest x-ray showed cardiomegaly with bilateral infiltrate in the bases and as an early pneumonitis. Patient is not running any fever or chills no significant shortness of breath at this point or productive cough. 06/24: Patient is seen today at the cardiac stepdown unit. Carotid ultrasound showed 35-50% internal carotid artery stenosis bilaterally. Most likely closer to 35%. Echocardiogram is pending. Heart rate was running 114 during the night currently at 92, blood pressure 105/52, pulse ox 96% on room air. Repeat blood work reveals WBC 4.6, hemoglobin 12, platelet count 103. Electrolytes and renal function normal, blood sugar 65. Troponins were negative on 3 draws. Patient denies any new complaints. Discussed the patient's current medications and recommendations to possibly cut down on some of her medications to help with her symptoms. Family will be contacted and given update after rounds are completed. Objective - Vital Signs Vital signs: Vital Signs Temp 97.8 F 06/25/19 04:00 Pulse 74 06/25/19 04:00 Resp 18 06/25/19 04:00 BP 105/52 06/25/19 04:00 Pulse Ox 96 06/25/19 04:00 Intake & Output 06/24/19 06/25/19 06/25/19 18:59 06:59 18:59 Intake Total 0 100 Balance 0 100 Weight 69.853 kg 43.5 kg Intake: Oral 0 100 Other: # Voids 1 # Bowel Movements 1 - Exam Review of Systems CONSTITUTIONAL: Well-developed no acute respiratory distress. Denies fever, denies chills. EYES: No icterus sclerae, no conjunctivitis. EARS, NOSE, MOUTH, THROAT, and FACE: No sore throat, lymphadenopathy, carotid bruits or deformity. RESPIRATORY: No SOB cough or wheezes. CARDIOVASCULAR: No CP, Palpitation, PND, Orthopnea, or angina. GASTROINTESTINAL: No Abd pain, Nausea or vomiting, no Diarrhea or constipation, No GI Bleed, no distention or masses. GENITOURINARY: UTI with burning discomfort irritation and frequency. INTEGUMENT/BREAST: Negative for any muscular injury with mild osteoarthritis.. HEMATOLOGIC/LYMPHATIC: Negative for bleed or purpura. MUSCULOSKELTAL: Negative for Myalgia or arthralgia. NEURLOGICAL: Mild altered mental status with slight confusion at time generalized weakness no focal deficit. BEHAVIORAL/PSYCH: Negative. ENDOCRINE: Negative. Physical Examination General Appearance: Alert, cooperative, no distress, appears stated age. Neck HEENT: Supple, no lymphadenopathy, no thyroid enlargement, no carotid bruits. Lungs: Clear to auscultation without crackles or wheezes no rhonchi, no deformity. Chest Wall: Chest wall normal expansion with deep inspiration no tenderness and no deformity, no costochondral pain or discomfort. Heart: Irregular rate and rhythm, S1, S2, positive S3 positive JVD. Back: Symmetric, no curvature, ROM normal, no CVA tenderness. Abdomen: Soft, non-tender, bowel sounds active all four quadrants, no masses, no organomegaly. Extremities: Extremities normal, atraumatic, no cyanosis or edema. Pulses: 2+ and symmetric. Skin: Skin color, texture, tugor normal, no rashes or lesions. Neurologic: Alert oriented with slight confusion, cranial nerves II through XII intact, no motor deficit, slight abnormal balancing gait with generalized weakness overall. - Labs CBC & Chem 7: 06/25/19 06:38 06/25/19 06:35 Labs: Abnormal Lab Results - Last 24 Hours (Table) 04/06/24/19 06/24/19 Range/Units 12:03 12:03 12:03 RBC (3.80-5.40) m/uL MCV 107.0 H (80.0-100.0) fL Plt Count 123 L (150-450) k/uL Lymphocytes # 0.8 L (1.0-4.8) k/uL Macrocytosis PT 15.8 H (9.0-12.0) sec INR 1.6 H (<1.2) Sodium (137-145) mmol/L Glucose (74-99) mg/dL Calcium (8.4-10.2) mg/dL Total Bilirubin (0.2-1.3) mg/dL Creatine Kinase (30-135) U/L Total Protein (6.3-8.2) g/dL Albumin (3.5-5.0) g/dL Urine Appearance Turbid H (Clear) Urine Protein 1+ H (Negative) Urine Ketones 1+ H (Negative) Urine Blood Small H (Negative) Ur Leukocyte Esterase Large H (Negative) Urine RBC 20 H (0-5) /hpf Urine WBC >182 H (0-5) /hpf Urine WBC Clumps Few H (None) /hpf Urine Bacteria Few H (None) /hpf Hyaline Casts 22 H (0-2) /lpf Urine Mucus Many H (None) /hpf 06/24/19 06/25/19 06/25/19 Range/Units 12:03 06:35 06:38 RBC 3.57 L (3.80-5.40) m/uL MCV 108.5 H (80.0-100.0) fL Plt Count 103 L (150-450) k/uL Lymphocytes # (1.0-4.8) k/uL Macrocytosis Marked A PT (9.0-12.0) sec INR (<1.2) Sodium 136 L (137-145) mmol/L Glucose 65 L (74-99) mg/dL Calcium 8.2 L 7.4 L (8.4-10.2) mg/dL Total Bilirubin 1.4 H (0.2-1.3) mg/dL Creatine Kinase 25 L (30-135) U/L Total Protein 5.3 L 4.3 L (6.3-8.2) g/dL Albumin 2.6 L 2.0 L (3.5-5.0) g/dL Urine Appearance (Clear) Urine Protein (Negative) Urine Ketones (Negative) Urine Blood (Negative) Ur Leukocyte Esterase (Negative) Urine RBC (0-5) /hpf Urine WBC (0-5) /hpf Urine WBC Clumps (None) /hpf Urine Bacteria (None) /hpf Hyaline Casts (0-2) /lpf Urine Mucus (None) /hpf Microbiology - Last 24 Hours (Table) 06/24/19 12:03 Urine Culture - Preliminary Urine,Catheterized Assessment and Plan Plan: 1. Metabolic encephalopathy secondary to UTI and sepsis which probably was causing the generalized weakness and fatigue, also the possibility of stroke or mini stroke is not totally excluded at this point even patient had been follow watch and tested repeatedly. 2. Sepsis and UTI: Patient is symptomatic currently with mild hypotension white blood cell is not elevated the platelets are significantly low, urine culture was done patient will be giving 1 g of Rocephin will continue IV antibiotics to the cultures back. 3. Failure to thrive: Not clear etiology whether this is consistent with mild memory loss, UTI with encephalopathy or any other underlying problem is not a cleared this point we'll continue to watch symptoms closely patient still on mirtazapine continue nutrition and protein supplement. 4 chronic pain syndrome: Mostly from skeletal muscular and lower back pain, has been on [place] and gabapentin which to some degree I can contribute some of her symptoms are to elevate reveal gabapentin and [place] side effect address with patient and the family possibility of reducing medication if possible. 5 A. fib with RVR, chronic atrial fibrillation: Watch for any bradycardia patient has been on metoprolol 50 mg twice a day which has controlled the pulse rate is very well still on Xarelto 20 mg daily. 6 chronic neuropathy: Has been on total of 900 mg of gabapentin daily still on Elavil as well. A combination of the 2 is not a good option on the long run may be one of the idea to change patient from both to smaller dose of Lyrica 50 mg twice a day titrate to 75 mg twice a day as a total without having to combination of the 2 specially with the extra medication on board like the mirtazapine Requip and meclizine. 7 chronic history of macular degeneration: Has been on vitamin supplement still seen retina specialist regularly. 8 restless leg syndrome: Has been on Requip 1 mg daily at bedtime and 0.5 mg in the morning. 9 recurrent history of herpes: Patient has been on Valtrex 1 g daily which another medication should be probably slow down to 500 mg daily hours switch patient to a site [place] 400 mg a day for suppressive management on the long run specially for her age. 10 GI prophylaxis: Patient will be started on Pepcid 20 mg a day. 11 DVT prophylaxis: Remain on anticoagulation with Xarelto 20 mg a day. CODE STATUS: Full code. Discharge plan: To be determined. PT and OT evaluations. Impression and plan of care have been directed as dictated by the signing physician. Shazia Celeste nurse practitioner acting as scribe for signing physician.
--- NOTE | 2019-06-25 12:00 | ECHOF ---
Referral Reason:lvfunction MEASUREMENTS -------- HEIGHT: 165.1 cm WEIGHT: 43.1 kg BP: 105/52 RVIDd: 2.5 cm (< 3.3) IVSd: 1.0 cm (0.6 - 1.1) LVIDd: 3.4 cm (3.9 - 5.3) LVPWd: 1.0 cm (0.6 - 1.1) IVSs: 1.5 cm LVIDs: 2.1 cm LVPWs: 1.6 cm LA Diam: 5.9 cm (2.7 - 3.8) Ao Diam: 3.1 cm (2.0 - 3.7) AV Cusp: 1.7 cm (1.5 - 2.6) LA Diam: 2.3 cm (2.7 - 3.8) MV EXCURSION: 12.842 mm (> 18.000) MV EF SLOPE: 75 mm/s (70 - 150) EPSS: 2.2 cm RAP: 5.00 mmHg RVSP: 29.86 mmHg FINDINGS -------- Atrial fibrillation. This was a technically adequate study. The left ventricular size is normal. Left ventricular wall thickness is normal. Overall left vent ricular systolic function is normal with, an EF between 55 - 60 %. Left ventricular fillimg pressur e cannot be estimated due to Atrial fibrillation. The right ventricle is normal in size. The left atrium is markedly dilated. The right atrial size is normal. The aortic valve is trileaflet and appears structurally normal. The mitral valve is normal. Mild mitral regurgitation is present. The tricuspid valve appears structurally normal. Mild tricuspid regurgitation present. Right vent ricular systolic pressure is normal at < 35 mmHg. The pulmonic valve was not well visualized. The aortic root size is normal. IVC Not well visulized. There is a small, generalized pericardial effusion present. CONCLUSIONS -------- 1. Atrial fibrillation. 2. This was a technically adequate study. 3. The left ventricular size is normal. 4. Left ventricular wall thickness is normal. 5. Overall left ventricular systolic function is normal with, an EF between 55 - 60 %. 6. Left ventricular fillimg pressure cannot be estimated due to Atrial fibrillation. 7. The right ventricle is normal in size. 8. The left atrium is markedly dilated. 9. The right atrial size is normal. 10. The aortic valve is trileaflet and appears structurally normal. 11. The mitral valve is normal. 12. Mild mitral regurgitation is present. 13. The tricuspid valve appears structurally normal. 14. Mild tricuspid regurgitation present. 15. Right ventricular systolic pressure is normal at < 35 mmHg. 16. The pulmonic valve was not well visualized. 17. The aortic root size is normal. 18. IVC Not well visulized. 19. There is a small, generalized pericardial effusion present. [employer]: Farnaz Fox RDCS
[2019-06-25 12:16] VITALS: BMI 15.9
[2019-06-25] MEDS: traMADol 50 MG TAB PO PRN ×2 (13:49→21:32)
[2019-06-25] MEDS: MIRTAZAPINE 15 MG TAB PO SCH (17:34)
[2019-06-25] MEDS: AMITRIPTYLINE HCL 25 MG TAB PO SCH (21:31)
[2019-06-26] MEDS: CALCIUM CARB-VIT D 500MG-200UN 1 EACH TAB PO SCH (07:45)
[2019-06-26] MEDS: CHOLECALCIFEROL 1,000 UNIT TAB PO SCH (07:45)
[2019-06-26] MEDS: GABAPENTIN 300 MG CAP PO SCH ×2 (07:45→20:14)
[2019-06-26] MEDS: METOPROLOL TARTRATE 50 MG TAB PO SCH ×2 (07:45→20:14)
[2019-06-26] MEDS: FAMOTIDINE 20 MG TAB PO SCH (07:46)
[2019-06-26] MEDS: RIVAROXABAN 20 MG TAB PO SCH (07:48)
[2019-06-26] MEDS: valACYclovir HCL 1,000 MG TABLET PO SCH (07:48)
--- NOTE | 2019-06-26 13:28 | P.DS ---
Providers Date of admission: 06/24/19 14:29 Expected date of discharge: 06/28/19 Attending physician: Travis Bolaños Primary care physician: Vandana Guevara [facility] Course: 83-year-old female one of Dr. Guevara's patient with past medical history of CVA, A. fib with RVR, chronic pain syndrome, chronic depression who returned back from [place] with history of 4 month of severe generalized weakness and fatigue with decrease of appetite no fever or chills decrease in urine output severe abnormal balancing gait had fall twice last 24 hours with no major injury hit her head on the door side with no major bruise or hematoma developed to have mild headache with no neck injury. Patient family were overconcern with a significant weight loss apparently made an appointment to see her primary care with some workup did not show any major abnormality. Patient ended up in the emergency department at [facility] today with above complaint was seen and evaluated her white blood cell was normal with the exception of mild thrombocytopenia her urine came back very positive with multiple RBC WBC and leukocyte nitrate positive culture is pending patient was giving 1 dose of IV antibiotics will be admitted to the hospital, CAT scan of the brain didn't show any intracranial hemorrhage but showed an old infarct in the right posterior part of total area which consistent with old stroke also had a scar tissue from mastoidectomy. Chest x-ray showed cardiomegaly with bilateral infiltrate in the bases and as an early pneumonitis. Patient is not running any fever or chills no significant shortness of breath at this point or productive cough. 06/24: Patient is seen today at the cardiac stepdown unit. Carotid ultrasound showed 35-50% internal carotid artery stenosis bilaterally. Most likely closer to 35%. Echocardiogram is pending. Heart rate was running 114 during the night currently at 92, blood pressure 105/52, pulse ox 96% on room air. Repeat blood work reveals WBC 4.6, hemoglobin 12, platelet count 103. Electrolytes and renal function normal, blood sugar 65. Troponins were negative on 3 draws. Patient denies any new complaints. Discussed the patient's current medications and recommendations to possibly cut down on some of her medications to help with her symptoms. Family will be contacted and given update after rounds are completed. 06/25: Patient is denying any new complaints today. Nursing concern the patient has some mild balance issues and slightly worse confusion today. Echocardiogram reveals EF of 55-60%, mild mitral regurgitation, mild tricuspid regurgitation, small generalized pericardial effusion. Urine cultures positive for Pantoea agglomerans pansensitive and patient will be discharged on Ceftin. Therapies are recommending subacute rehab and social work is following for discharge planning. Anticipate patient will be ready for discharge home tomorrow. Patient has been afebrile, HR 75, BP 96/64, PO 97% on RA. 06/26: Patient has been afebrile, heart rate 76, blood pressure 112/78, pulse ox 94% on room air. Patient states her back pain is much improved more so with the tramadol versus [place]. The patient will be sent home at the time of discharge with the new prescription for Ultram. Patient did do better with physical therapy today mild there is continued concern for safety and therapies recommend subacute rehab. The family is planning to take the patient home. There are no home care agencies doing virtual visits which is what the family requested. They will update social work with discharge plan. Patient will be monitored overnight and plan for discharge either home or subacute rehab tomorrow. 06/27: Patient is sleeping at the time of our evaluation. She apparently has not been sleeping here for the past 1-1/2 days. She has been afebrile, heart rate 106, blood pressure 119/87, pulse ox 96% on room air. Iron studies ordered which revealed iron 76, TIBC 112, iron saturation 67.86, ferritin 1073, recheck count 1.05, vitamin B12 1488, vitamin D 25 134.4, folate 3.6. Patient had no issues overnight. Patient's has been contacted and updated by Dr. Bolaños via phone and family has discussed discharge plan with social work. Plan is to return home without home care. Patient will be discharged home today in stable condition. Discharge diagnoses: 1. Metabolic encephalopathy secondary to UTI and sepsis which probably was causing the generalized weakness and fatigue 2. Sepsis and UTI 3. Failure to thrive with mild memory loss 4 chronic pain syndrome 5 A. fib with RVR, chronic atrial fibrillation 6 chronic neuropathy 7 chronic history of macular degeneration 8 restless leg syndrome 9 recurrent history of herpes Discharge plan: home Impression and plan of care have been directed as dictated by the signing physician. Shazia Celeste nurse practitioner acting as scribe for signing physician. Patient Condition at Discharge: Good Plan - Discharge Summary Discharge Rx Participant: No New Discharge Prescriptions: New Cefuroxime [Ceftin] 250 mg PO BID 7 Days #14 tab traMADol HCl [Ultram] 50 mg PO Q6H PRN #12 tab PRN Reason: Breakthrough Pain Mirtazapine [Remeron] 15 mg PO W/SUPPER #30 tab Continue Meclizine [Antivert] 25 mg PO TID PRN PRN Reason: Vertigo Calcium Carbonate/Vitamin D3 [Caltrate 600 Plus D3 Tablet] 1 tab PO DAILY Cholecalciferol [Vitamin D3 (25 Mcg = 1000 Iu)] 5,000 unit PO DAILY Rivaroxaban [Xarelto] 20 mg PO DAILY Gabapentin 300 mg PO QAM Metoprolol Tartrate [Lopressor] 50 mg PO BID rOPINIRole HCL [Requip] 0.5 mg PO QAM Maculapro 1 tab PO DAILY Ergocalciferol (Vitamin D2) [Drisdol] 50,000 unit PO ROSS rOPINIRole HCL [Requip] 1 mg PO HS valACYclovir HCL [Valacyclovir] 1,000 mg PO DAILY Changed Amitriptyline HCl [Elavil] 50 tab PO HS #0 Gabapentin 600 mg PO HS #0 Discontinued HYDROcodone/APAP 10-325MG [[place]cels[place] 10-325] 1 tab PO TID Mirtazapine 7.5 mg PO W/SUPPER Discharge Medication List Calcium Carbonate/Vitamin D3 [Caltrate 600 Plus D3 Tablet] 1 tab PO DAILY 10/13/17 [History] Cholecalciferol [Vitamin D3 (25 Mcg = 1000 Iu)] 5,000 unit PO DAILY 10/13/17 [History] Gabapentin 300 mg PO QAM 10/13/17 [History] Maculapro 1 tab PO DAILY 10/13/17 [History] Meclizine [Antivert] 25 mg PO TID PRN 10/13/17 [History] Metoprolol Tartrate [Lopressor] 50 mg PO BID 10/13/17 [History] Rivaroxaban [Xarelto] 20 mg PO DAILY 10/13/17 [History] rOPINIRole HCL [Requip] 0.5 mg PO QAM 10/13/17 [History] Ergocalciferol (Vitamin D2) [Drisdol] 50,000 unit PO ROSS 06/24/19 [History] rOPINIRole HCL [Requip] 1 mg PO HS 06/24/19 [History] valACYclovir HCL [Valacyclovir] 1,000 mg PO DAILY 06/24/19 [History] Amitriptyline HCl [Elavil] 50 tab PO HS #0 06/26/19 [Rx] Cefuroxime [Ceftin] 250 mg PO BID 7 Days #14 tab 06/26/19 [Rx] Gabapentin 600 mg PO HS #0 06/26/19 [Rx] Mirtazapine [Remeron] 15 mg PO W/SUPPER #30 tab 06/27/19 [Rx] traMADol HCl [Ultram] 50 mg PO Q6H PRN #12 tab 06/27/19 [Rx] Follow up Appointment(s)/Referral(s): Vandana Guevara MD [Primary Care Provider] - 1 Week (office will call patient with appointment time) Discharge Disposition: HOME SELF-CARE
--- NOTE | 2019-06-26 14:37 | P.PN ---
Subjective Progress Note Date: 06/26/19 83-year-old female one of Dr. Guevara's patient with past medical history of CVA, A. fib with RVR, chronic pain syndrome, chronic depression who returned back from [place] with history of 4 month of severe generalized weakness and fatigue with decrease of appetite no fever or chills decrease in ur ine output severe abnormal balancing gait had fall twice last 24 hours with no major injury hit her head on the door side with no major bruise or hematoma developed to have mild headache with no neck injury. Patient family were overconcern with a significant weight loss apparently made an appointment to see her primary care with some workup did not show any major abnormality. Patient ended up in the emergency department at [facility] today with above complaint was seen and evaluated her white blood cell was normal with the exception of mild thrombocytopenia her urine came back very positive with multiple RBC WBC and leukocyte nitrate positive culture is pending patient was giving 1 dose of IV antibiotics will be admitted to the hospital, CAT scan of the brain didn't show any intracranial hemorrhage but showed an old infarct in the right posterior part of total area which consistent with old stroke also had a scar tissue from mastoidectomy. Chest x-ray showed cardiomegaly with bilateral infiltrate in the bases and as an early pneumonitis. Patient is not running any fever or chills no significant shortness of breath at this point or productive cough. 06/24: Patient is seen today at the cardiac stepdown unit. Carotid ultrasound showed 35-50% internal carotid artery stenosis bilaterally. Most likely closer to 35%. Echocardiogram is pending. Heart rate was running 114 during the night currently at 92, blood pressure 105/52, pulse ox 96% on room air. Repeat blood work reveals WBC 4.6, hemoglobin 12, platelet count 103. Electrolytes and renal function normal, blood sugar 65. Troponins were negative on 3 draws. Patient denies any new complaints. Discussed the patient's current medications and recommendations to possibly cut down on some of her medications to help with her symptoms. Family will be contacted and given update after rounds are completed. 06/25: Patient is denying any new complaints today. Nursing concern the patient has some mild balance issues and slightly worse confusion today. Echocardiogram reveals EF of 55-60%, mild mitral regurgitation, mild tricuspid regurgitation, small generalized pericardial effusion. Urine cultures positive for Pantoea agglomerans pansensitive and patient will be discharged on Ceftin. Therapies are recommending subacute rehab and social work is following for discharge planning. Anticipate patient will be ready for discharge home tomorrow. Patient has been afebrile, HR 75, BP 96/64, PO 97% on RA. Objective - Vital Signs Vital signs: Vital Signs Temp 97.7 F 06/26/19 00:56 Pulse 78 06/26/19 00:56 Resp 18 06/26/19 00:56 BP 91/62 06/26/19 00:56 Pulse Ox 95 06/26/19 00:56 Intake & Output 06/25/19 06/26/19 06/26/19 18:59 06:59 18:59 Intake Total 50 Balance 50 Weight 43.5 kg 60 kg Intake: Oral 50 Other: Voiding Method Toilet # Voids 1 - Exam Review of Systems CONSTITUTIONAL: Well-developed no acute respiratory distress. Denies fever, denies chills. EYES: No icterus,no sclerae, no conjunctivitis. EARS, NOSE, MOUTH, THROAT, and FACE: No sore throat, lymphadenopathy, carotid bruits or deformity. RESPIRATORY: No SOB cough or wheezes. CARDIOVASCULAR: No CP, Palpitation, PND, Orthopnea, or angina. GASTROINTESTINAL: No Abd pain, Nausea or vomiting, no Diarrhea or constipation, No GI Bleed, no distention or masses. GENITOURINARY: UTI with burning discomfort irritation and frequency. INTEGUMENT/BREAST: Negative for any muscular injury with mild osteoarthritis.. HEMATOLOGIC/LYMPHATIC: Negative for bleed or purpura. MUSCULOSKELTAL: Negative for Myalgia or arthralgia. NEURLOGICAL: Mild altered mental status with slight confusion at time generalized weakness no focal deficit. BEHAVIORAL/PSYCH: Negative. ENDOCRINE: Negative. Physical Examination General Appearance: Alert, cooperative, no distress, appears stated age. Patient resting in bed. Neck HEENT: Supple, no lymphadenopathy, no thyroid enlargement, no carotid bruits. Lungs: Clear to auscultation without crackles or wheezes no rhonchi, no deformity. Chest Wall: Chest wall normal expansion with deep inspiration no tenderness and no deformity, no costochondral pain or discomfort. Heart: Irregular rate and rhythm, S1, S2, positive S3 positive JVD. Back: Symmetric, no curvature, ROM normal, no CVA tenderness. Abdomen: Soft, non-tender, bowel sounds active all four quadrants, no masses, no organomegaly. Extremities: Extremities normal, atraumatic, no cyanosis or edema. Pulses: 2+ and symmetric. Skin: Skin color, texture, tugor normal, no rashes or lesions. Neurologic: Alert oriented with slight confusion, cranial nerves II through XII intact, no motor deficit, slight abnormal balancing gait with generalized weakness overall. - Labs CBC & Chem 7: 06/25/19 06:38 06/25/19 06:35 Labs: Microbiology - Last 24 Hours (Table) 06/24/19 13:46 Blood Culture - Preliminary Blood No Growth after 24 hours 06/24/19 12:03 Urine Culture - Preliminary Urine,Catheterized Gram Neg Bacilli Assessment and Plan Plan: 1. Metabolic encephalopathy secondary to UTI and sepsis which probably was causing the generalized weakness and fatigue, also the possibility of stroke or mini stroke is not totally excluded at this point even patient had been follow watch and tested repeatedly. Continue Rocephin. Ceftin at time of discharge. 2. Sepsis and UTI: Patient is symptomatic currently with mild hypotension white blood cell is not elevated the platelets are significantly low, urine culture was done patient will be giving 1 g of Rocephin will continue IV antibiotics to the cultures back. 3. Failure to thrive: Not clear etiology whether this is consistent with mild memory loss, UTI with encephalopathy or any other underlying problem is not a cleared this point we'll continue to watch symptoms closely patient still on mirtazapine continue nutrition and protein supplement. 4 chronic pain syndrome: Mostly from skeletal muscular and lower back pain, has been on [place] and gabapentin which to some degree I can contribute some of her symptoms are to elevate reveal gabapentin and [place] side effect address with patient and the family possibility of reducing medication if possible. 5 A. fib with RVR, chronic atrial fibrillation: Watch for any bradycardia patient has been on metoprolol 50 mg twice a day which has controlled the pulse rate is very well still on Xarelto 20 mg daily. 6 chronic neuropathy: Has been on total of 900 mg of gabapentin daily still on Elavil as well. A combination of the 2 is not a good option on the long run may be one of the idea to change patient from both to smaller dose of Lyrica 50 mg twice a day titrate to 75 mg twice a day as a total without having to combination of the 2 specially with the extra medication on board like the mirtazapine Requip and meclizine. 7 chronic history of macular degeneration: Has been on vitamin supplement still seen retina specialist regularly. 8 restless leg syndrome: Has been on Requip 1 mg daily at bedtime and 0.5 mg in the morning. 9 recurrent history of herpes: Patient has been on Valtrex 1 g daily which another medication should be probably slow down to 500 mg daily hours switch pa orlin to a site [place] 400 mg a day for suppressive management on the long run specially for her age. 10 GI prophylaxis: Patient will be started on Pepcid 20 mg a day. 11 DVT prophylaxis: Remain on anticoagulation with Xarelto 20 mg a day. CODE STATUS: Full code. Discharge plan: Discharge tomorrow to home with home care. Impression and plan of care have been directed as dictated by the signing physician. Shazia Celeste nurse practitioner acting as scribe for signing physician.
[2019-06-26] MEDS: MIRTAZAPINE 15 MG TAB PO SCH (20:14)
[2019-06-26] MEDS: AMITRIPTYLINE HCL 25 MG TAB PO SCH (20:14)
[2019-06-27] MEDS: CALCIUM CARB-VIT D 500MG-200UN 1 EACH TAB PO SCH (07:17)
[2019-06-27] MEDS: METOPROLOL TARTRATE 50 MG TAB PO SCH ×2 (07:18→20:48)
[2019-06-27] MEDS: GABAPENTIN 300 MG CAP PO SCH ×2 (07:18→20:49)
[2019-06-27] MEDS: FAMOTIDINE 20 MG TAB PO SCH (07:18)
[2019-06-27] MEDS: CHOLECALCIFEROL 1,000 UNIT TAB PO SCH (07:18)
[2019-06-27] MEDS: RIVAROXABAN 20 MG TAB PO SCH (07:20)
[2019-06-27] MEDS: valACYclovir HCL 1,000 MG TABLET PO SCH (07:20)
[2019-06-27] MEDS: CEFDINIR 300 MG CAP PO SCH ×2 (09:50→20:48)
[2019-06-27] MEDS: traMADol 50 MG TAB PO PRN ×2 (12:01→20:49)
--- NOTE | 2019-06-27 13:33 | P.PN ---
Subjective Progress Note Date: 06/27/19 83-year-old female one of Dr. Guevara's patient with past medical history of CVA, A. fib with RVR, chronic pain syndrome, chronic depression who returned back from [place] with history of 4 month of severe generalized weakness and fatigue with decrease of appetite no fever or chills decrease in ur ine output severe abnormal balancing gait had fall twice last 24 hours with no major injury hit her head on the door side with no major bruise or hematoma developed to have mild headache with no neck injury. Patient family were overconcern with a significant weight loss apparently made an appointment to see her primary care with some workup did not show any major abnormality. Patient ended up in the emergency department at [facility] today with above complaint was seen and evaluated her white blood cell was normal with the exception of mild thrombocytopenia her urine came back very positive with multiple RBC WBC and leukocyte nitrate positive culture is pending patient was giving 1 dose of IV antibiotics will be admitted to the hospital, CAT scan of the brain didn't show any intracranial hemorrhage but showed an old infarct in the right posterior part of total area which consistent with old stroke also had a scar tissue from mastoidectomy. Chest x-ray showed cardiomegaly with bilateral infiltrate in the bases and as an early pneumonitis. Patient is not running any fever or chills no significant shortness of breath at this point or productive cough. 06/24: Patient is seen today at the cardiac stepdown unit. Carotid ultrasound showed 35-50% internal carotid artery stenosis bilaterally. Most likely closer to 35%. Echocardiogram is pending. Heart rate was running 114 during the night currently at 92, blood pressure 105/52, pulse ox 96% on room air. Repeat blood work reveals WBC 4.6, hemoglobin 12, platelet count 103. Electrolytes and renal function normal, blood sugar 65. Troponins were negative on 3 draws. Patient denies any new complaints. Discussed the patient's current medications and recommendations to possibly cut down on some of her medications to help with her symptoms. Family will be contacted and given update after rounds are completed. 06/25: Patient is denying any new complaints today. Nursing concern the patient has some mild balance issues and slightly worse confusion today. Echocardiogram reveals EF of 55-60%, mild mitral regurgitation, mild tricuspid regurgitation, small generalized pericardial effusion. Urine cultures positive for Pantoea agglomerans pansensitive and patient will be discharged on Ceftin. Therapies are recommending subacute rehab and social work is following for discharge planning. Anticipate patient will be ready for discharge home tomorrow. Patient has been afebrile, HR 75, BP 96/64, PO 97% on RA. 06/26: Patient has been afebrile, heart rate 76, blood pressure 112/78, pulse ox 94% on room air. Patient states her back pain is much improved more so with the tramadol versus [place]. The patient will be sent home at the time of discharge with the new prescription for Ultram. Patient did do better with physical therapy today mild there is continued concern for safety and therapies recommend subacute rehab. The family is planning to take the patient home. There are no home care agencies doing virtual visits which is what the family requested. They will update social work with discharge plan. Patient will be monitored overnight and plan for discharge either home or subacute rehab tomorrow. Objective - Vital Signs Vital signs: Vital Signs Temp 97.5 F L 06/27/19 07:00 Pulse 76 06/27/19 07:00 Resp 18 06/27/19 07:20 BP 112/78 06/27/19 07:00 Pulse Ox 94 L 06/27/19 07:00 Intake & Output 06/26/19 06/27/19 06/27/19 18:59 06:59 18:59 Intake Total 50 Balance 50 Weight 58 kg Intake: Intake, IV Titration 50 Amount cefTRIAXone 1 gm In 50 Sodium Chloride 0.9% 50 ml @ 100 mls/hr IVPB Q24HR [facility] Rx#:[id number] Other: Voiding Method Toilet Toilet Toilet # Voids 1 - Exam Review of Systems CONSTITUTIONAL: Well-developed no acute respiratory distress. Denies fever, denies chills. EYES: No icterus,no sclerae, no conjunctivitis. EARS, NOSE, MOUTH, THROAT, and FACE: No sore throat, lymphadenopathy, carotid bruits or deformity. RESPIRATORY: No SOB cough or wheezes. CARDIOVASCULAR: No CP, Palpitation, PND, Orthopnea, or angina. GASTROINTESTINAL: No Abd pain, Nausea or vomiting, no Diarrhea or constipation, No GI Bleed, no distention or masses. GENITOURINARY: UTI with burning discomfort irritation and frequency. INTEGUMENT/BREAST: Negative for any muscular injury with mild osteoarthritis.. HEMATOLOGIC/LYMPHATIC: Negative for bleed or purpura. MUSCULOSKELTAL: Negative for Myalgia or arthralgia. Reports back discomfort NEURLOGICAL: Mild altered mental status with slight confusion at time generalized weakness no focal deficit. BEHAVIORAL/PSYCH: Negative. ENDOCRINE: Negative. Physical Examination General Appearance: Alert, cooperative, no distress, appears stated age. Patient resting in bed. Neck HEENT: Supple, no lymphadenopathy, no thyroid enlargement, no carotid bruits. Lungs: Clear to auscultation without crackles or wheezes no rhonchi, no deformity. Chest Wall: Chest wall normal expansion with deep inspiration no tenderness and no deformity, no costochondral pain or discomfort. Heart: Irregular rate and rhythm, S1, S2, positive S3 positive JVD. Back: Symmetric, no curvature, ROM normal, no CVA tenderness. Abdomen: Soft, non-tender, bowel sounds active all four quadrants, no masses, no organomegaly. Extremities: Extremities normal, atraumatic, no cyanosis or edema. Pulses: 2+ and symmetric. Skin: Skin color, texture, tugor normal, no rashes or lesions. Neurologic: Alert oriented with slight confusion, cranial nerves II through XII intact, no motor deficit, slight abnormal balancing gait with generalized we akness overall. - Labs CBC & Chem 7: 06/25/19 06:38 06/25/19 06:35 Labs: Microbiology - Last 24 Hours (Table) 06/24/19 13:46 Blood Culture - Preliminary Blood No Growth after 48 hours 06/24/19 12:03 Urine Culture - Final Urine,Catheterized Pantoea agglomerans Assessment and Plan Plan: 1. Metabolic encephalopathy secondary to UTI and sepsis which probably was causing the generalized weakness and fatigue, also the possibility of stroke or mini stroke is not totally excluded at this point even patient had been follow watch and tested repeatedly. Transition to Ceftin. 2. Sepsis and UTI: Patient is symptomatic currently with mild hypotension white blood cell is not elevated the platelets are significantly low, urine culture was done patient will be giving 1 g of Rocephin will continue IV antibiotics to the cultures back. 3. Failure to thrive: Not clear etiology whether this is consistent with mild memory loss, UTI with encephalopathy or any other underlying problem is not a cleared this point we'll continue to watch symptoms closely patient still on mirtazapine continue nutrition and protein supplement. 4 chronic pain syndrome: Mostly from skeletal muscular and lower back pain, has been on [place] and gabapentin which to some degree I can contribute some of her symptoms are to elevate reveal gabapentin and [place] side effect address with patient and the family possibility of reducing medication if possible. 5 A. fib with RVR, chronic atrial fibrillation: Watch for any bradycardia patient has been on metoprolol 50 mg twice a day which has controlled the pulse rate is very well still on Xarelto 20 mg daily. 6 chronic neuropathy: Has been on total of 900 mg of gabapentin daily still on Elavil as well. A combination of the 2 is not a good option on the long run may be one of the idea to change patient from both to smaller dose of Lyrica 50 mg twice a day titrate to 75 mg twice a day as a total without having to combination of the 2 specially with the extra medication on board like the mirtazapine Requip and meclizine. 7 chronic history of macular degeneration: Has been on vitamin supplement still seen retina specialist regularly. 8 restless leg syndrome: Has been on Requip 1 mg daily at bedtime and 0.5 mg in the morning. 9 recurrent history of herpes. Patient is currently on Valtrex. 10 GI prophylaxis: Patient will be started on Pepcid 20 mg a day. 11 DVT prophylaxis: Remain on anticoagulation with Xarelto 20 mg a day. CODE STATUS: Full code. Discharge plan: Discharge tomorrow to home or subacute rehab. Impression and plan of care have been directed as dictated by the signing physician. Shazia Celeste nurse practitioner acting as scribe for signing physician.
[2019-06-27] MEDS: HYDROcodone/APAP 10-325MG 1 EACH TAB PO PRN (14:36)
[2019-06-27] MEDS ORDERED: MIRTAZAPINE 15 MG TAB PO SCH (17:30)
[2019-06-27 18:53] LABS: Reticulocyte % 1.05 % (0.10-1.80)
[2019-06-27] MEDS: AMITRIPTYLINE HCL 25 MG TAB PO SCH (20:49)
[2019-06-27 23:24] LABS: % Iron Saturation 67.86 (12.00-45.00)
[2019-06-27 23:32] LABS: Folate, Serum 3.6 ng/mL
[2019-06-28 08:26] VITALS: BP 109/61; PULSE 85; RESP 16; TEMP 98.4
[2019-06-28] MEDS: CALCIUM CARB-VIT D 500MG-200UN 1 EACH TAB PO SCH (09:18)
[2019-06-28] MEDS: FAMOTIDINE 20 MG TAB PO SCH (09:18)
[2019-06-28] MEDS: GABAPENTIN 300 MG CAP PO SCH (09:18)
[2019-06-28] MEDS: CHOLECALCIFEROL 1,000 UNIT TAB PO SCH (09:19)
[2019-06-28] MEDS: valACYclovir HCL 1,000 MG TABLET PO SCH (09:20)
[2019-06-28] MEDS: METOPROLOL TARTRATE 50 MG TAB PO SCH (09:20)
[2019-06-28] MEDS: CEFDINIR 300 MG CAP PO SCH (09:20)
[2019-06-28] MEDS: RIVAROXABAN 20 MG TAB PO SCH (09:20)
== END 2019-06-28 11:30 | disposition home or self-care (01) | DRG 871 ==
LOC: EC 11:07 → 3SCARD 14:29 → 4SSUR 06-25 12:52
PROVIDERS: ADMIT Internal Medicine Geriatric Medicine; ATTEND Internal Medicine Geriatric Medicine
DX: A41.9 Sepsis, unspecified organism (principal); G93.41 Metabolic encephalopathy; N39.0 Urinary tract infection, site not specified; I48.20 Chronic atrial fibrillation, unspecified; I31.3 Pericardial effusion (noninflammatory); B96.89 Other specified bacterial agents as the cause of diseases classified elsewhere; D69.6 Thrombocytopenia, unspecified; R62.7 Adult failure to thrive; E86.0 Dehydration; I08.1 Rheumatic disorders of both mitral and tricuspid valves; I65.23 Occlusion and stenosis of bilateral carotid arteries; G62.9 Polyneuropathy, unspecified; M54.5 Low back pain; F32.9 Major depressive disorder, single episode, unspecified; G25.81 Restless legs syndrome; G89.4 Chronic pain syndrome; H35.30 Unspecified macular degeneration; M19.90 Unspecified osteoarthritis, unspecified site; R26.9 Unspecified abnormalities of gait and mobility; Z79.01 Long term (current) use of anticoagulants; Z79.899 Other long term (current) drug therapy; Z90.49 Acquired absence of other specified parts of digestive tract; Z90.710 Acquired absence of both cervix and uterus; Z98.890 Other specified postprocedural states; Z98.84 Bariatric surgery status; Z86.73 Personal history of transient ischemic attack (TIA), and cerebral infarction without residual deficits; Z86.19 Personal history of other infectious and parasitic diseases; W01.198A Fall on same level from slipping, tripping and stumbling with subsequent striking against other object, initial encounter
CPT/HCPCS: 36415; 70450; 71046; 80053; 81001; 82306; 82550; 82607; 82728; 82746; 83540; 83550; 83605; 83690; 83735; 83880; 84207; 84425; 84484; 85025; 85045; 85610; 86140; 87040; 87077; 87086; 87186; 93005; 93306; 93880; 96361; 96374; 99285

== ENCOUNTER 2019-07-12 08:28 | Inpatient (IN) | payer BC, MEDICARE ==
--- NOTE | 2019-07-12 08:52 | ED ---
General Adult HPI - General Chief complaint: Extremity Problem,Nontraumatic Stated complaint: Leg pain Time Seen by Provider: 07/12/19 08:30 Source: patient, family, EMS, RN notes reviewed Mode of arrival: EMS Limitations: altered mental status - History of Present Illness Initial comments: Patient is a pleasant 83-year-old female presenting to the emergency Department with complaints of leg discomfort. Onset of symptoms was just this morning. Patient has noticed some discomfort and swelling. Area affected is right lower leg. Patient also has some discomfort behind her right knee for the past couple of days. No history of similar symptoms previously. Patient was in the hospital over a month or so ago with concern regarding elevated liver enzymes. Evaluation was limited at that time secondary to concerns regarding coronavirus. Patient has been less active recently and decreased appetite. - Related Data Home Medications Medication Instructions Recorded Confirmed Calcium Carbonate/Vitamin D3 1 tab PO DAILY 10/13/17 06/24/19 [Caltrate 600 Plus D3 Tablet] Cholecalciferol [Vitamin D3 (25 5,000 unit PO DAILY 10/13/17 06/24/19 Mcg = 1000 Iu)] Gabapentin 300 mg PO QAM 10/13/17 06/24/19 Maculapro 1 tab PO DAILY 10/13/17 06/24/19 Meclizine [Antivert] 25 mg PO TID PRN 10/13/17 06/24/19 Metoprolol Tartrate [Lopressor] 50 mg PO BID 10/13/17 06/24/19 Rivaroxaban [Xarelto] 20 mg PO DAILY 10/13/17 06/24/19 rOPINIRole HCL [Requip] 0.5 mg PO QAM 10/13/17 06/24/19 Ergocalciferol (Vitamin D2) 50,000 unit PO ROSS 06/24/19 06/24/19 [Drisdol] rOPINIRole HCL [Requip] 1 mg PO HS 06/24/19 06/24/19 valACYclovir HCL [Valacyclovir] 1,000 mg PO DAILY 06/24/19 06/24/19 Previous Rx's Medication Instructions Recorded Amitriptyline HCl [Elavil] 50 tab PO HS #0 06/26/19 Cefuroxime [Ceftin] 250 mg PO BID 7 Days #14 tab 06/26/19 Gabapentin 600 mg PO HS #0 06/26/19 Mirtazapine [Remeron] 15 mg PO W/SUPPER #30 tab 06/27/19 traMADol HCl [Ultram] 50 mg PO Q6H PRN #12 tab 06/27/19 Allergies Allergy/AdvReac Type Severity Reaction Status Date / Time No Known Allergies Allergy Verified 07/12/19 08:35 Review of Systems ROS Statement: Those systems with pertinent positive or pertinent negative responses have been documented in the HPI. ROS Other: All systems not noted in ROS Statement are negative. Constitutional: Denies: fever Eyes: Denies: eye pain ENT: Denies: ear pain Respiratory: Denies: dyspnea Cardiovascular: Denies: chest pain Endocrine: Reports: fatigue Gastrointestinal: Reports: nausea. Denies: abdominal pain Genitourinary: Denies: dysuria Musculoskeletal: Denies: back pain Skin: Denies: rash Neurological: Reports: as per HPI Past Medical History Past Medical History: Atrial Fibrillation, CVA/TIA, Osteoarthritis (OA) Additional Past Medical History / Comment(s): RLS, CHRONIC PAIN, VERTIGO, MACULAR DEGENERATION History of Any Multi-Drug Resistant Organisms: None Reported Past Surgical History: Adenoidectomy, Appendectomy, Bariatric Surgery, Cholecystectomy, Hernia Repair, Hysterectomy, Orthopedic Surgery, Tonsillectomy Additional Past Surgical History / Comment(s): baiatric surgery Past Psychological History: Depression Smoking Status: Never smoker Past Alcohol Use History: None Reported Past Drug Use History: None Reported - Past Family History Mother History Unknown: Yes General Exam Limitations: altered mental status General appearance: alert, in no apparent distress Head exam: Present: normocephalic Eye exam: Present: normal appearance Neck exam: Present: normal inspection Respiratory exam: Present: normal lung sounds bilaterally Cardiovascular Exam: Present: regular rate, normal rhythm, systolic murmur Expanded Peripheral pulses: 2+: Dorsalis Pedis (R), Dorsalis Pedis (L) GI/Abdominal exam: Present: soft. Absent: tenderness Extremities exam: Present: tenderness (Mild tenderness right lower royal and below the right knee.), pedal edema (Mild right greater than left leg), other (Mild ecchymotic appearance right lower royal with tenderness) Neurological exam: Present: alert, CN II-XII intact. Absent: motor sensory deficit Psychiatric exam: Present: normal affect, normal mood Skin exam: Present: other (Mild ecchymosis right lower royal) Course Vital Signs 07/12/19 08:31 Temperature 97.5 F L Pulse Rate 91 Respiratory 18 Rate Blood Pressure 102/71 O2 Sat by Pulse 98 Oximetry EKG Findings - EKG Comments: EKG Findings:: H a fibrillation/flutter with rate of 90. QRS 96. QT 370. QTc 452. Normal axis. Low QRS voltage. No acute ST change. Medical Decision Making - Medical Decision Making Patient reevaluated. Patient and family updated. Case discussed in detail with Dr. Guevara who would like to admit his patient with GI consult. - Lab Data Result diagrams: 07/12/19 09:15 07/12/19 09:15 Lab Results 07/12/19 07/12/19 07/12/19 Range/Units 09:15 09:15 09:15 WBC 6.8 (3.8-10.6) k/uL RBC 4.19 (3.80-5.40) m/uL Hgb 14.7 (11.4-16.0) gm/dL Hct 44.9 (34.0-46.0) % MCV 107.3 H (80.0-100.0) fL MCH 35.1 H (25.0-35.0) pg MCHC 32.7 (31.0-37.0) g/dL RDW 14.4 (11.5-15.5) % Plt Count 123 L (150-450) k/uL Neutrophils % 67 % Lymphocytes % 21 % Monocytes % 10 % Eosinophils % 1 % Basophils % 0 % Neutrophils # 4.6 (1.3-7.7) k/uL Lymphocytes # 1.4 (1.0-4.8) k/uL Monocytes # 0.7 (0-1.0) k/uL Eosinophils # 0.1 (0-0.7) k/uL Basophils # 0.0 (0-0.2) k/uL Manual Slide Review Performed Large Platelets Present Macrocytosis Moderate PT 18.2 H (9.0-12.0) sec INR 1.9 H (<1.2) APTT 32.2 H (22.0-30.0) sec Sodium 134 L (137-145) mmol/L Potassium 3.7 (3.5-5.1) mmol/L Chloride 101 (98-107) mmol/L Carbon Dioxide 27 (22-30) mmol/L Anion Gap 6 mmol/L BUN 18 H (7-17) mg/dL Creatinine 0.68 (0.52-1.04) mg/dL Est GFR (CKD-EPI)AfAm >90 (>60 ml/min/1.73 sqM) Est GFR (CKD-EPI)NonAf 82 (>60 ml/min/1.73 sqM) Glucose 83 (74-99) mg/dL Plasma Lactic Acid Armando (0.7-2.0) mmol/L Calcium 7.7 L (8.4-10.2) mg/dL Magnesium 1.6 (1.6-2.3) mg/dL Total Bilirubin 1.0 (0.2-1.3) mg/dL AST 44 H (14-36) U/L ALT 29 (4-34) U/L Alkaline Phosphatase 59 (38-126) U/L Total Protein 5.1 L (6.3-8.2) g/dL Albumin 2.3 L (3.5-5.0) g/dL TSH 4.480 (0.465-4.680) mIU/L 07/12/19 Range/Units 09:15 WBC (3.8-10.6) k/uL RBC (3.80-5.40) m/uL Hgb (11.4-16.0) gm/dL Hct (34.0-46.0) % MCV (80.0-100.0) fL MCH (25.0-35.0) pg MCHC (31.0-37.0) g/dL RDW (11.5-15.5) % Plt Count (150-450) k/uL Neutrophils % % Lymphocytes % % Monocytes % % Eosinophils % % Basophils % % Neutrophils # (1.3-7.7) k/uL Lymphocytes # (1.0-4.8) k/uL Monocytes # (0-1.0) k/uL Eosinophils # (0-0.7) k/uL Basophils # (0-0.2) k/uL Manual Slide Review Large Platelets Macrocytosis PT (9.0-12.0) sec INR (<1.2) APTT (22.0-30.0) sec Sodium (137-145) mmol/L Potassium (3.5-5.1) mmol/L Chloride (98-107) mmol/L Carbon Dioxide (22-30) mmol/L Anion Gap mmol/L BUN (7-17) mg/dL Creatinine (0.52-1.04) mg/dL Est GFR (CKD-EPI)AfAm (>60 ml/min/1.73 sqM) Est GFR (CKD-EPI)NonAf (>60 ml/min/1.73 sqM) Glucose (74-99) mg/dL Plasma Lactic Acid Armando 1.5 (0.7-2.0) mmol/L Calcium (8.4-10.2) mg/dL Magnesium (1.6-2.3) mg/dL Total Bilirubin (0.2-1.3) mg/dL AST (14-36) U/L ALT (4-34) U/L Alkaline Phosphatase (38-126) U/L Total Protein (6.3-8.2) g/dL Albumin (3.5-5.0) g/dL TSH (0.465-4.680) mIU/L - Radiology Data Radiology results: report reviewed (Ultrasound of the leg shows no evidence of DVT.), image reviewed (X-ray right tib-fib shows no fracture or dislocation. Two-view chest x-ray shows right suprahilar density.) Disposition Clinical Impression: Dehydration, Pneumonia Disposition: ADMITTED IP TO THIS HOSP Is patient prescribed a controlled substance at d/c from ED?: No Referrals: Vandana Guevara MD [Primary Care Provider] - 1-2 days Decision Time: 12:01
[2019-07-12 09:43] LABS: ALT 29 U/L (4-34); AST 44 U/L (14-36); African American GFR (CKD) >90 (>60 ml/min/1.73 sqM); Albumin 2.3 g/dL (3.5-5.0); Alkaline Phosphatase 59 U/L (38-126); Anion Gap 6 mmol/L; Blood Urea Nitrogen 18 mg/dL (7-17); Calcium 7.7 mg/dL (8.4-10.2); Carbon Dioxide 27 mmol/L (22-30); Chloride 101 mmol/L (98-107); Glucose 83 mg/dL (74-99); INR 1.9 (<1.2); Magnesium 1.6 mg/dL (1.6-2.3); Non-African American GFR(CKD) 82 (>60 ml/min/1.73 sqM); Partial Thromboplastin Time 32.2 sec (22.0-30.0); Prothrombin Time 18.2 sec (9.0-12.0); Sodium 134 mmol/L (137-145); Total Protein 5.1 g/dL (6.3-8.2)
[2019-07-12 09:44] LABS: Basophils % (A) 0 %; Eosinophils # (A) 0.1 k/uL (0-0.7); Eosinophils % (A) 1 %; HCT 44.9 % (34.0-46.0); HGB 14.7 gm/dL (11.4-16.0); Lymphocytes # (A) 1.4 k/uL (1.0-4.8); Lymphocytes % (A) 21 %; MCH 35.1 pg (25.0-35.0); MCHC 32.7 g/dL (31.0-37.0); MCV 107.3 fL (80.0-100.0); Macrocytosis Moderate; Mean Platelet Volume 15.4; Monocytes # (A) 0.7 k/uL (0-1.0); Monocytes % (A) 10 %; Neutrophils # (A) 4.6 k/uL (1.3-7.7); Neutrophils % (A) 67 %; Platelet Count 123 k/uL (150-450); RBC 4.19 m/uL (3.80-5.40); RDW 14.4 % (11.5-15.5); WBC 6.8 k/uL (3.8-10.6)
[2019-07-12] MEDS ORDERED: SODIUM CHLORIDE 0.9% 1,000 ML IV STA (09:48)
[2019-07-12 09:49] LABS: Large Platelets Present
[2019-07-12 09:54] LABS: Potassium 3.7 mmol/L (3.5-5.1)
--- NOTE | 2019-07-12 10:15 | XR ---
EXAMINATION TYPE: XR chest 2V DATE OF EXAM: 07/12/2019 COMPARISON: 06/24/2019 HISTORY: Shortness of breath TECHNIQUE: Frontal and lateral views of the chest are obtained. FINDINGS: Scattered senescent parenchymal changes noted. Hyperinflation compatible with COPD. Increased density right suprahilar region may reflect developing infiltrate. Correlate clinically. Heart size is stable. Mediastinal structures are stable and grossly unremarkable. No evidence for hilar prominence. Degenerative changes dorsal spine. IMPRESSION: 1. Increased density right suprahilar region may reflect developing infiltrate. Correlate clinically.
--- NOTE | 2019-07-12 10:16 | XR ---
EXAMINATION TYPE: XR tibia fibula RT DATE OF EXAM: 07/12/2019 CLINICAL HISTORY: pain TECHNIQUE: AP and lateral images of the right tibia and fibula are obtained. COMPARISON: None. FINDINGS: There is no acute fracture/dislocation evident. The joint spaces appear within normal andre its. Soft tissue swelling suspected. IMPRESSION: There is no acute fracture or dislocation seen. ICD 10 NO FRACTURE, INITIAL EVALUATION
--- NOTE | 2019-07-12 11:25 | US ---
EXAMINATION TYPE: US venous doppler duplex LE RT DATE OF EXAM: 07/12/2019 11:16 AM COMPARISON: NONE CLINICAL HISTORY: swelling. SIDE PERFORMED: Right TECHNIQUE: The lower extremity deep venous system is examined utilizing real time linear array sonog tiana with graded compression, doppler sonography and color-flow sonography. VESSELS IMAGED: External Iliac Vein (EIV) Common Femoral Vein Deep Femoral Vein Greater Saphenous Vein * Femoral Vein Popliteal Vein Small Saphenous Vein * Proximal Calf Veins (* superficial vessels) Right Leg: Negative for DVT IMPRESSION: No evidence for DVT at this time.
[2019-07-12] MEDS ORDERED: AZITHROMYCIN 500 MG in SODIUM CHLORIDE 0.9% 250 ML IVPB STA (12:10)
[2019-07-12] MEDS ORDERED: PNEUMONIA PROTOCOL UTILIZED 1 EACH MISC PO PRN (12:10)
[2019-07-12] MEDS ORDERED: ONDANSETRON 4 MG TAB PO PRN (12:40)
--- NOTE | 2019-07-12 13:27 | XR ---
EXAMINATION TYPE: XR KUB DATE OF EXAM: 07/12/2019 COMPARISON: NONE HISTORY: Pain TECHNIQUE: Single supine KUB image of the abdomen is obtained FINDINGS: Small bowel demonstrates no evidence for dilatation or air fluid levels. Gas and fecal material is seen in non-distended colon. No convincing evidence for pneumoperitoneum. No unusual calcifications. The lung bases are clear. Postoperative changes right hip. Bone infarct left hip. IMPRESSION: 1. Overall nonobstructive bowel gas pattern.
[2019-07-12] MEDS: SODIUM CHLORIDE 0.9% 1,000 ML IV SCH ×2 (13:31→22:37)
--- NOTE | 2019-07-12 13:58 | P.HPIM ---
History of Present Illness H&P Date: 07/12/19 Chief Complaint: Lower extremity redness, anorexia This is an 83-year-old female patient of Dr. Dr. Guevara with past medical history of CVA, paroxysmal atrial fibrillation on Xarelto, chronic pain syndrome, lumbar compression fracture and osteoporosis, restless leg syndrome, history of morbid obesity status post bariatric surgery. Patient was recently hospitalized in June and was treated for metabolic encephalopathy secondary to UTI and sepsis with generalized weakness and fatigue. Patient was also identified as failure to thrive. She was not eating well at that time. Patient was stabilized and discharged to home. Patient currently lives at home with her but her daughter has been staying with them for the past 6 weeks as the patient has not been doing well. Patient has not been eating since prior to her last admission. She has generalized weakness to the lower extremities and presents with lower extremity edema and erythema ecchymosis to the right lower extremity most likely secondary to a fall that occurred prior to her last admission. Patient also has history of having a GI workup in [place] which time she underwent EGD was found to have esophageal varices and was also told she had a fatty liver. Patient denies ever having daily alcohol intake. She does have a sister that from cirrhosis of the liver from hepatitis C. Recent outpatient lab work revealed iron 76, TIBC 112, iron saturation 67.86, ferritin 1073, vitamin B1 31, vitamin B6 less than 2 vitamin B 12 1488, vitamin D 25 134.4. Patient had outpatient CAT scan of the abdomen and pelvis done recently and this report will be obtained from the office. Patient presented to [facility] emergency center for evaluation. WBC 6.8, Hemoglobin 14.7 and platelet count 123 INR 1.9, total bilirubin 1, AST 44, ALT 29 and alkaline phosphatase 59, TSH 4.480. KUB reveals nonobstructive bowel gas pattern. Ultrasound of the right lower extremity negative for DVT. Right Tib-fib x-ray shows no acute fracture. Chest x-ray reveals increased density right suprahilar region may reflect developing infiltrate. EKG atrial fibrillation with rate controlled. Patient admitted to the MedSurg floor and started on azithromycin and ceftriaxone for pneumonia, start vitamin B6 and thiamine, consult with GI for cirrhosis evaluation and neurology for bilateral lower extremity weakness. X-rays of the lumbar and thoracic spine. Review of Systems Constitutional: Reports anorexia, Reports chronic pain, Reports fatigue, Reports lethargy, Reports malaise, Reports poor appetite, Reports weakness, Denies chills, Denies chronic headaches, Denies fever Eyes: denies blurred vision, denies pain Ears, nose, mouth and throat: Denies dysphagia, Denies headache, Denies nasal congestion, Denies nasal discharge, Denies sore throat, Denies vertigo Cardiovascular: Reports edema, Reports leg edema, Denies chest pain, Denies decreased exercise tolerance, Denies dyspnea on exertion, Denies lightheadedness, Denies shortness of breath, Denies syncope Respiratory: Denies cough, Denies cough with sputum, Denies dyspnea, Denies e xcessive sputum, Denies hemoptysis, Denies home oxygen, Denies respiratory infections, Denies wheezing Gastrointestinal: Reports loss of appetite, Denies abdominal pain, Denies BRBPR, Denies diarrhea, Denies nausea, Denies vomiting Genitourinary: Denies dysuria, Denies hematuria, Denies urgency, Denies urinary frequency Musculoskeletal: Reports gait dysfunction, Reports muscle weakness, Denies frequent falls, Denies myalgias Integumentary: Reports color changes, Reports darkening of skin, Reports wounds, Denies pruritus, Denies rash Neurological: Reports gait dysfunction, Denies change in mentation, Denies change in speech, Denies numbness, Denies weakness Psychiatric: Denies anxiety, Denies depression Endocrine: Denies fatigue, Denies weight change Past Medical History Past Medical History: Atrial Fibrillation, CVA/TIA, Osteoarthritis (OA) Additional Past Medical History / Comment(s): RLS, CHRONIC PAIN, VERTIGO, MACULAR DEGENERATION, paroxysmal atrial fibrillation, esophageal varices, fatty liver, pathologic compression fracture and osteoporosis History of Any Multi-Drug Resistant Organisms: None Reported Past Surgical History: Adenoidectomy, Appendectomy, Bariatric Surgery, Cholecystectomy, Hernia Repair, Hysterectomy, Orthopedic Surgery, Tonsillectomy Additional Past Surgical History / Comment(s): baiatric surgery Past Psychological History: Depression Smoking Status: Never smoker Past Alcohol Use History: None Reported Past Drug Use History: None Reported Additional Drug Use History / Comment(s): Patient is a lifelong nonsmoker. Only social alcohol use in the past. Patient is very had daily alcohol intake. No illicit drug use. Patient lives at home with her . - Past Family History Mother History Unknown: Yes Additional Family Medical History / Comment(s): Mother at age 62 from breast cancer. Father Additional Family Medical History / Comment(s): Father at age 74 from a motor vehicle accident with history of diabetes and coronary artery disease. Brother(s) Additional Family Medical History / Comment(s): Patient has 2 brothers and one has passed with history of coronary artery disease and alcohol abuse. One brother is alive with history of alcohol abuse and coronary artery disease. Sister(s) Additional Family Medical History / Comment(s): Patient has one sister that has passed from cirrhosis of the liver secondary to hepatitis C from blood transfusion. Daughter(s) Additional Family Medical History / Comment(s): Patient has 2 daughters and one has history of ADD and depression, second daughter has history of alcohol abuse and bipolar disorder. Son(s) Additional Family Medical History / Comment(s): Patient has 3 sons one has history of coronary artery disease depression and alcohol abuse. Medications and Allergies Home Medications Medication Instructions Recorded Confirmed Type Gabapentin 300 mg PO QAM 10/13/17 07/12/19 History Maculapro 1 tab PO DAILY 10/13/17 07/12/19 History Metoprolol Tartrate [Lopressor] 100 mg PO QAM 10/13/17 07/12/19 History Rivaroxaban [Xarelto] 20 mg PO DAILY 10/13/17 07/12/19 History rOPINIRole HCL [Requip] 0.5 mg PO QAM 10/13/17 07/12/19 History rOPINIRole HCL [Requip] 1 mg PO HS 06/24/19 07/12/19 History valACYclovir HCL [Valacyclovir] 1,000 mg PO DAILY 06/24/19 07/12/19 History Amitriptyline HCl [Elavil] 50 tab PO HS #0 06/26/19 07/12/19 Rx Mirtazapine [Remeron] 15 mg PO W/SUPPER #30 tab 06/27/19 07/12/19 Rx traMADol HCl [Ultram] 50 mg PO Q6H PRN #12 tab 06/27/19 07/12/19 Rx Gabapentin 900 mg PO HS 07/12/19 07/12/19 History Metoprolol Tartrate [Lopressor] 25 mg PO HS 07/12/19 07/12/19 History Ondansetron [Zofran] 4 mg PO Q6H PRN 07/12/19 07/12/19 History Allergies Allergy/AdvReac Type Severity Reaction Status Date / Time No Known Allergies Allergy Verified 07/12/19 12:27 Physical Exam Vitals: Vital Signs Temp Pulse Resp BP Pulse Ox 07/12/19 08:31 97.5 F L 91 18 102/71 98 Intake and Output 07/11/19 07/12/19 07/12/19 22:59 06:59 14:59 Other: Weight 74.843 kg Gen: This is an 83-year-old female. Patient is resting in the ER stretcher and appears to be comfortable and in no acute distress. Daughter is at bedside. HEENT: Head is atraumatic, normocephalic. Pupils equal, round. Sclerae is anicteric. Oral mucous membranes are slightly dry. NECK: Supple. No JVD. No lymphadenopathy. No thyromegaly. LUNGS: Clear to auscultation. No wheezes or rhonchi. No intercostal retr actions. HEART: Irregularly irregular rate and rhythm. No murmur. ABDOMEN: Soft. Bowel sounds are present. No masses. No tenderness. No ascites noted. EXTREMITIES: Bilateral lower extremity pedal edema and ecchymosis to the pretibial area on the right leg with warmth to the touch. NEUROLOGICAL: Patient is awake, alert and oriented x3. Cranial nerves 2 through 12 are grossly intact. Weakness to the bilateral lower extremities. Mild lower back discomfort with straight leg lift. Foot push pull equal. 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 Results CBC & Chem 7: 07/14/19 08:09 07/14/19 08:09 Labs: Abnormal Lab Results - Last 24 Hours (Table) 07/12/19 07/12/19 07/12/19 Range/Units 09:15 09:15 09:15 MCV 107.3 H (80.0-100.0) fL MCH 35.1 H (25.0-35.0) pg Plt Count 123 L (150-450) k/uL PT 18.2 H (9.0-12.0) sec INR 1.9 H (<1.2) APTT 32.2 H (22.0-30.0) sec Sodium 134 L (137-145) mmol/L BUN 18 H (7-17) mg/dL Calcium 7.7 L (8.4-10.2) mg/dL AST 44 H (14-36) U/L Total Protein 5.1 L (6.3-8.2) g/dL Albumin 2.3 L (3.5-5.0) g/dL Thrombosis Risk Factor Assmnt - DVT/VTE Prophylaxis DVT/VTE Prophylaxis: Pharmacologic Prophylaxis ordered Assessment and Plan Plan: 1. Lower extremity weakness of unclear etiology. Consult with neurology, lumbar and thoracic spine x-rays to evaluate for progression of compression fractures with history of osteoporosis. Start thiamine 100 mg daily, vitamin B12 6 100 mg daily. 2. Right lower extremity ecchymosis secondary to previous falls. 3. Lower extremity edema, anorexia and elevated INR ferritin, rule out cirrhosis of the liver. Patient has history of EGD last summer in [place] that is reported as having identified esophageal varices and workup also identified fatty liver. Report will be obtained from the office. Ultrasound negative for DVT. X-ray negative for fracture. Continue her 4. Right-sided pneumonia. Continue his azithromycin and ceftriaxone. 5. Paroxysmal atrial fibrillation. Continue Xarelto 20 mg daily, Lopressor 100 mg in the morning and 25 mg in the evening 6. Recent treatment for UTI and sepsis. Obtain urinalysis and culture. Continue ceftriaxone for now. 7. Chronic lower extremity neuropathy. Continue gabapentin but decrease dose of 300 mg twice daily. 8. Macular degeneration. 9. Restless leg syndrome. Continue Elavil 50 mg at bedtime 10. Recurrent history of herpes. Discontinue Valtrex. 11. Chronic pain. Continue tramadol 50 mg every 6 hours. 14. Severe protein calorie malnutrition due to poor oral intake of the protein. Patient will be admitted to the hospital for a minimum of 2 night stay. Discharge plan: To be determined. Consults with PT and OT. Impression and plan of care have been directed as dictated by the signing physician. Shazia Celeste nurse practitioner acting as scribe for signing physician.
--- NOTE | 2019-07-12 14:15 | XR ---
EXAMINATION TYPE: XR lumbar spine 2 or 3V DATE OF EXAM: 07/12/2019 CLINICAL HISTORY: Back pain. Compression fracture. TECHNIQUE: Frontal and lateral images of the lumbar spine are obtained. COMPARISON: 09/06/2013 x-ray and MRI of the thoracic spine dated 11/26/2016 FINDINGS: Kyphoplasty has been performed of the T11 vertebral body. There is a mild compression defor mity of T12 with vertebral body height loss of approximately 20%. There is a minimal compression defo rmity of L5 that appears chronic unchanged from 2013. There is a slight oblique angle on the lateral view that contributes to suboptimal evaluation of the vertebral body heights. Multilevel facet arthro claudia is seen with diffuse osseous demineralization. Surgical sutures in the abdomen are scattered. IMPRESSION: 1. Mild compression deformity of T12 is new from 2017. Correlate with point tenderness. 2. Old compression deformities of T11, post kyphoplasty, and L5. Diffuse osseous demineralization and moderate degenerative disc disease.
--- NOTE | 2019-07-12 14:18 | XR ---
EXAMINATION TYPE: XR thoracic spine complete DATE OF EXAM: 07/12/2019 CLINICAL HISTORY: Compression fracture and back pain TECHNIQUE: Frontal, lateral, and swimmer's view of thoracic spine are obtained. COMPARISON: 09/06/2013 x-ray and MRI of the thoracic spine dated 11/24/2016 FINDINGS: There is diffuse osseous demineralization and exaggerated thoracic kyphosis. Known compress ion deformity with kyphoplasty change is seen at T11. Minimal compression deformity of T10, T7, and T 8 when compared to the exam of 2013 all less than 10% vertebral body height loss. Upper thoracic spin e is suboptimally viewed given the diffuse osseous demineralization. Flattening of the diaphragms on the lateral view may represent underlying COPD. Mild multilevel degenerative disc disease of the thor acic spine. IMPRESSION: 1. Mild compression deformities of T7, T8, and T10 that are new from 2017. 2. Diffuse osseous demineralization, exaggerated thoracic kyphosis, mild degenerative change, and old compression deformity of T11.
--- NOTE | 2019-07-12 14:48 | P.CONS ---
History of Present Illness - Reason for Consult Consult date: 07/12/19 Cirrhosis Requesting physician: Vandana Guevara - Chief Complaint Leg pain - History of Present Illness 83-year-old female with multiple medical comorbidities including prior history of esophageal varices and imaging supporting a cirrhotic appearing liver, prior gastric bypass surgery who presented to the emergency department with complaints of leg discomfort. Patient reports symptoms of lower extremity swelling and discomfort. At this time she is also reported complaints of decreased oral intake. She reports no desire to eat. She denies any nausea or vomiting. She denies any abdominal pain at this time. Currently she is reporting intermittently having loose bowel movements. Previous history of constipation. No colonoscopy in the past. She did have an EGD in [place] in the summer of 2018 significant for varices. No signs or symptoms of GI bleeding reported. She denies any dysphagia, odynophagia or history of reflux disease. Gastric bypass was performed over 20 years ago, patient unable to provide any further details regarding the surgery. Laboratory evaluation on presentation significant for WBC 6.8, hemoglobin 14.7, INR 1.9, platelet count 123,000, total bilirubin 1, alkaline phosphatase 59, AST 44 and ALT 29. X-ray of the abdomen negative for any retained stool. Review of Systems REVIEW OF SYSTEMS: CONSTITUTIONAL: Denies any fevers, chills, weight change but does report fatigue. CARDIOVASCULAR: Denies any chest pain, palpitations high or low blood pressures RESPIRATORY: Denies any shortness of breath, hemoptysis or cough. GENITOURINARY: No dysuria or hematuria. MUSCULOSKELETAL: No weakness reported, right leg pain. SKIN: Denies any new rashes or lesions, jaundice or pallor, but she does have some lower extremity swelling and pain in the right leg. PSYCHIATRIC: Denies any depression or anxiety. NEUROLOGY: Denies headache, denies any new focal deficits. EARS/NOSE/THROAT: No recent hearing change, congestion, nasal discharge or sore throat. EYES: No pain in eyes, discharge or change in vision. GASTROINTESTINAL: As per HPI. Past Medical History Past Medical History: Atrial Fibrillation, CVA/TIA, Osteoarthritis (OA) Additional Past Medical History / Comment(s): RLS, CHRONIC PAIN, VERTIGO, MACU LAR DEGENERATION, paroxysmal atrial fibrillation, esophageal varices, fatty liver, pathologic compression fracture and osteoporosis History of Any Multi-Drug Resistant Organisms: None Reported Past Surgical History: Adenoidectomy, Appendectomy, Bariatric Surgery, Cholecystectomy, Hernia Repair, Hysterectomy, Orthopedic Surgery, Tonsillectomy Additional Past Surgical History / Comment(s): baiatric surgery Past Psychological History: Depression Smoking Status: Never smoker Past Alcohol Use History: None Reported Past Drug Use History: None Reported Additional Drug Use History / Comment(s): Patient is a lifelong nonsmoker. Only social alcohol use in the past. Patient is very had daily alcohol intake. No illicit drug use. Patient lives at home with her . - Past Family History Mother History Unknown: Yes Additional Family Medical History / Comment(s): Mother at age 62 from breast cancer. Father Additional Family Medical History / Comment(s): Father at age 74 from a motor vehicle accident with history of diabetes and coronary artery disease. Brother(s) Additional Family Medical History / Comment(s): Patient has 2 brothers and one has passed with history of coronary artery disease and alcohol abuse. One brother is alive with history of alcohol abuse and coronary artery disease. Sister(s) Additional Family Medical History / Comment(s): Patient has one sister that has passed from cirrhosis of the liver secondary to hepatitis C from blood transfusion. Daughter(s) Additional Family Medical History / Comment(s): Patient has 2 daughters and one has history of ADD and depression, second daughter has history of alcohol abuse and bipolar disorder. Son(s) Additional Family Medical History / Comment(s): Patient has 3 sons one has history of coronary artery disease depression and alcohol abuse. Medications and Allergies Home Medications Medication Instructions Recorded Confirmed Type Gabapentin 300 mg PO QAM 10/13/17 07/12/19 History Maculapro 1 tab PO DAILY 10/13/17 07/12/19 History Metoprolol Tartrate [Lopressor] 100 mg PO QAM 10/13/17 07/12/19 History Rivaroxaban [Xarelto] 20 mg PO DAILY 10/13/17 07/12/19 History rOPINIRole HCL [Requip] 0.5 mg PO QAM 10/13/17 07/12/19 History rOPINIRole HCL [Requip] 1 mg PO HS 06/24/19 07/12/19 History valACYclovir HCL [Valacyclovir] 1,000 mg PO DAILY 06/24/19 07/12/19 History Amitriptyline HCl [Elavil] 50 tab PO HS #0 06/26/19 07/12/19 Rx Mirtazapine [Remeron] 15 mg PO W/SUPPER #30 tab 06/27/19 07/12/19 Rx traMADol HCl [Ultram] 50 mg PO Q6H PRN #12 tab 06/27/19 07/12/19 Rx Gabapentin 900 mg PO HS 07/12/19 07/12/19 History Metoprolol Tartrate [Lopressor] 25 mg PO HS 07/12/19 07/12/19 History Ondansetron [Zofran] 4 mg PO Q6H PRN 07/12/19 07/12/19 History Allergies Allergy/AdvReac Type Severity Reaction Status Date / Time No Known Allergies Allergy Verified 07/12/19 12:27 Physical Exam Vitals: Vital Signs Temp Pulse Resp BP Pulse Ox 07/12/19 08:31 97.5 F L 91 18 102/71 98 Intake and Output 07/11/19 07/12/19 07/12/19 22:59 06:59 14:59 Other: Weight 74.843 kg On physical examination, patient appears comfortable in no apparent distress. HEAD: Normocephalic, atraumatic. EYES: No scleral icterus. No conjunctival injection. MOUTH: No lesions, tongue midline. NECK: Trachea midline, no gross abnormalities. CHEST: Clear to auscultation with no wheezing or rhonchi appreciated. HEART: S1-S2 appreciated. ABDOMEN: Soft, obese. Bowel sounds are positive. No organomegaly. No guarding or rigidity. EXTREMITIES: Bilateral lower extremity edema (right greater than left). SKIN: No rashes, no jaundice. NEUROLOGIC: Alert and oriented x3. No focal deficits. Results CBC & Chem 7: 07/12/19 09:15 07/12/19 09:15 Labs: Abnormal Lab Results - Last 24 Hours (Table) 07/12/19 07/12/19 07/12/19 Range/Units 09:15 09:15 09:15 MCV 107.3 H (80.0-100.0) fL MCH 35.1 H (25.0-35.0) pg Plt Count 123 L (150-450) k/uL PT 18.2 H (9.0-12.0) sec INR 1.9 H (<1.2) APTT 32.2 H (22.0-30.0) sec Sodium 134 L (137-145) mmol/L BUN 18 H (7-17) mg/dL Calcium 7.7 L (8.4-10.2) mg/dL AST 44 H (14-36) U/L Total Protein 5.1 L (6.3-8.2) g/dL Albumin 2.3 L (3.5-5.0) g/dL Abdominal x-ray: report reviewed (No significant findings of large fecal burden on x-ray of the abdomen.) Assessment and Plan (1) History of cirrhosis of liver Narrative/Plan: 83-year-old female with multiple medical comorbidities including a reported history of liver disease and prior diagnosis of esophageal varices in the summer of 2018 who presents to the hospital for constellation of symptoms including weakness and lower extremity pain and swelling. Patient reports previously being told of a fatty liver disease but has had elevated liver enzymes in the [facility]. She was seen in [place] for GI bleed in 2019 and cold of varices. Imaging in the past has shown a nodular appearing liver but not available at this time and our medical record. Patient has been having decreased oral intake with decreased appetite. Current Visit: Yes Status: Acute Code(s): Z87.19 - PERSONAL HISTORY OF OTHER DISEASES OF THE DIGESTIVE SYSTEM SNOMED Code(s): 294749812 (2) Elevated liver enzymes Current Visit: Yes Status: Acute Code(s): R74.8 - ABNORMAL LEVELS OF OTHER SERUM ENZYMES SNOMED Code(s): 048184564 (3) History of esophageal varices Current Visit: Yes Status: Acute Code(s): Z87.19 - PERSONAL HISTORY OF OTHER DISEASES OF THE DIGESTIVE SYSTEM SNOMED Code(s): 13126887212080817 Plan: Supportive care Okay for sodium restricted diet as tolerated Will add Pepcid twice daily for possible reflux related nausea and decreased appetite Full liver serologies ordered Iron studies did show elevated iron and ferritin, patient will benefit from [place] testing for hemochromatosis (HFE gene testing in the outpatient setting) Ammonia level ordered Continue to monitor CBC, BMP, liver enzymes X-ray abdomen without significant stool burden, however patient has had chronic constipation in the past and is now reporting loose stool and will order one dose of lactulose Ultrasound abdomen ordered for evaluation of liver and possible ascites Consideration for diuretic therapy with combination of Lasix and Aldactone pending findings from ultrasound as well as for treatment of lower extremity sw jacob Thank you for allowing us to participate in the care of the patient we will continue to follow
[2019-07-12] MEDS: LACTULOSE 20 GM/30 ML CUP PO ONE ×2 (14:53→15:07)
[2019-07-12] MEDS: FAMOTIDINE 20 MG/2 ML VIAL IV SCH ×2 (14:53→20:40)
[2019-07-12 15:10] VITALS: BMI 28.3
[2019-07-12] MEDS: traMADol 50 MG TAB PO PRN (15:24)
[2019-07-12] MEDS: MIRTAZAPINE 15 MG TAB PO SCH (17:32)
--- NOTE | 2019-07-12 17:33 | P.CNNES ---
History of Present Illness Consult date: 07/12/19 Requesting physician: Shazia Celeste Reason for Consult: Bilateral lower extremity weakness History of Present Illness: Patient is a 83-year-old female, who actually came to the hospital for recurrent falls and leg weakness. Patient is not a very good historian, tells me that she came because her legs were swelling. She was not feeling right. When I asked about leg weakness, states "yes it is a little bit". She states that she walks without any device at home. In the last 5 weeks, she has fell twice. One of t hem she fell backwards, hitting on the buttocks, and back of the head producing a bump. 2 weeks later she fell again. Patient states that she does limited walking at home, from bedroom to the bathroom, does not use any devices although sometimes he would touch an object to balance. She denies any numbness or tingling in the legs. She does have back pain. Patient lives in her home with her . Patient had undergone X-ray of the lumbar and thoracic spine showed mild compression deformities of T7, T8 and T10 that are new from 2017. Mild osseous demineralization, exaggerated thoracic kyphosis, mild degenerative change, and old compression deformity of T11. EKG shows atrial fibrillation with competing junctional pacemaker. Chest x-ray showed increased density right suprahilar region, mainly for developing infiltrate. Patient had a carotid Doppler on 06/24/2019, which revealed antegrade flow in both vertebral arteries. Less than 50% stenosis in both ICAs, closer to 35%. 2-D echo from 06/25/2019 showed atrial fibrillation, EF 55-60%. Left atrium is moderately dilated. MRI of thoracic spine with and without contrast on 11/26/2016 showed unchanged compression deformity of T11 vertebral body with approximately 50% height loss and 2.4 mm retropulsion creating mild spinal canal stenosis. No abnormal enhancement or abnormal spinal cord signal. Review of Systems As above in detail. Patient denies headache. Denies any problems with vision hoarseness without dysphagia. Denies any numbness tingling focal weakness. Denies shortness of breath wheezing cough, nausea vomiting diarrhea abdominal pain. All other review of systems negative. She does have back pain. Past Medical History Past Medical History: Atrial Fibrillation, CVA/TIA, Osteoarthritis (OA) Additional Past Medical History / Comment(s): RLS, CHRONIC PAIN, VERTIGO, MACULAR DEGENERATION, paroxysmal atrial fibrillation, esophageal varices, fatty liver, pathologic compression fracture and osteoporosis History of Any Multi-Drug Resistant Organisms: None Reported Past Surgical History: Adenoidectomy, Appendectomy, Bariatric Surgery, Cholecystectomy, Hernia Repair, Hysterectomy, Orthopedic Surgery, Tonsillectomy Additional Past Surgical History / Comment(s): baiatric surgery Past Psychological History: Depression Smoking Status: Never smoker Past Alcohol Use History: None Reported Past Drug Use History: None Reported Additional Drug Use History / Comment(s): Patient is a lifelong nonsmoker. Only social alcohol use in the past. Patient is very had daily alcohol intake. No illicit drug use. Patient lives at home with her . - Past Family History Mother History Unknown: Yes Additional Family Medical History / Comment(s): Mother at age 62 from breast cancer. Father Additional Family Medical History / Comment(s): Father at age 74 from a motor vehicle accident with history of diabetes and coronary artery disease. Brother(s) Additional Family Medical History / Comment(s): Patient has 2 brothers and one has passed with history of coronary artery disease and alcohol abuse. One brother is alive with history of alcohol abuse and coronary artery disease. Sister(s) Additional Family Medical History / Comment(s): Patient has one sister that has passed from cirrhosis of the liver secondary to hepatitis C from blood transfusion. Daughter(s) Additional Family Medical History / Comment(s): Patient has 2 daughters and one has history of ADD and depression, second daughter has history of alcohol abuse and bipolar disorder. Son(s) Additional Family Medical History / Comment(s): Patient has 3 sons one has history of coronary artery disease depression and alcohol abuse. Medications and Allergies Home Medications Medication Instructions Recorded Confirmed Type Gabapentin 300 mg PO QAM 10/13/17 07/12/19 History Maculapro 1 tab PO DAILY 10/13/17 07/12/19 History Metoprolol Tartrate [Lopressor] 100 mg PO QAM 10/13/17 07/12/19 History Rivaroxaban [Xarelto] 20 mg PO DAILY 10/13/17 07/12/19 History rOPINIRole HCL [Requip] 0.5 mg PO QAM 10/13/17 07/12/19 History rOPINIRole HCL [Requip] 1 mg PO 06/24/19 07/12/19 History valACYclovir HCL [Valacyclovir] 1,000 mg PO DAILY 06/24/19 07/12/19 History Amitriptyline HCl [Elavil] 50 tab PO HS #0 06/26/19 07/12/19 Rx Mirtazapine [Remeron] 15 mg PO W/SUPPER #30 tab 06/27/19 07/12/19 Rx traMADol HCl [Ultram] 50 mg PO Q6H PRN #12 tab 06/27/19 07/12/19 Rx Gabapentin 900 mg PO HS 07/12/19 07/12/19 History Metoprolol Tartrate [Lopressor] 25 mg PO HS 07/12/19 07/12/19 History Ondansetron [Zofran] 4 mg PO Q6H PRN 07/12/19 07/12/19 History Allergies Allergy/AdvReac Type Severity Reaction Status Date / Time No Known Allergies Allergy Verified 07/12/19 12:27 Physical Examination - Vital Signs Vital Signs: Vital Signs Temp Pulse Pulse Resp BP BP Pulse Ox 07/12/19 14:45 98.4 F 107 H 18 127/82 95 07/12/19 08:31 97.5 F L 91 18 102/71 98 Intake and Output 07/11/19 07/12/19 07/12/19 22:59 06:59 14:59 Other: Weight 74.843 kg On examination patient is an elderly female, in no distress. Patient is alert and awake oriented to time place and person. Speech and language functions are normal. Detail cognitive function testing deferred. On cranial nerves examination pupils are round and reactive to light, visual rae are full, extra muscles are intact with no nystagmus. Face is symmetric, tongue protrudes the midline. Palatal elevation and sensation normal. Hearing is mildly decreased, shoulder shrug normal. On muscle strength testing there is no pronator drift the strength is symmetrically weak, deltoid 5-, biceps 4+ to 5-, triceps 4+, manager inventory management 5-. Hip flexion is 4-, knee extension 4+ with some amount of give way because of pain. Ankles and toes appears normal. Reflexes are 2+ in the upper limbs, 2+ to 3 at the knees, 1+ ankles and plantars are possibly upgoing bilaterally. Sensory touch is equal. No ataxia for [id number] testing. Tone and bulk of muscles normal. Gait deferred. Patient does have moderate peripheral edema. Peripheral pulses could not be felt. She does have some bruises from previous falls. No obvious bruit, S1 and S2 audible. Abdomen soft nontender. Results - Laboratory Findings CBC and BMP: 07/12/19 09:15 07/12/19 09:15 Abnormal Lab Findings: Abnormal Labs 07/12/19 07/12/19 07/12/19 09:15 09:15 09:15 MCV 107.3 H MCH 35.1 H Plt Count 123 L PT 18.2 H INR 1.9 H APTT 32.2 H Sodium 134 L BUN 18 H Calcium 7.7 L AST 44 H Total Protein 5.1 L Albumin 2.3 L Assessment and Plan Assessment: * 83-year-old female admitted with frequent falls. Examination revealed symmetric weakness of bilateral upper and lower extremities, proximal> distal, with relatively brisk reflexes, and bilateral Babinski. Rule out cervical or thoracic spinal canal stenosis. * History of multiple compression fractures. Plan: * MRI of cervical and thoracic spine to rule out spinal stenosis and to assess for compression fractures.
[2019-07-12 19:47] LABS: Hepatitis A Antibody IgM Non-Reactive (Non-Reactive); Hepatitis B Core IgM Non-Reactive (Non-Reactive); Hepatitis B Surface Antigen Non-Reactive (Non-Reactive); Hepatitis C IgG Antibody Non-Reactive (Non-Reactive)
[2019-07-12] MEDS: METOPROLOL TARTRATE 25 MG TAB PO SCH (20:37)
[2019-07-12] MEDS: GABAPENTIN 300 MG CAP PO SCH (20:38)
[2019-07-12] MEDS ORDERED: AMITRIPTYLINE HCL 50 MG TAB PO SCH (21:00)
[2019-07-13 07:55] LABS: INR 1.5 (<1.2)
[2019-07-13] MEDS ORDERED: METOPROLOL TARTRATE 50 MG TAB PO SCH (09:00)
[2019-07-13] MEDS ORDERED: PYRIDOXINE 50 MG TAB PO SCH (09:00)
[2019-07-13] MEDS: FAMOTIDINE 20 MG/2 ML VIAL IV SCH ×2 (09:31→22:46)
[2019-07-13] MEDS: GABAPENTIN 300 MG CAP PO SCH ×2 (09:33→22:46)
[2019-07-13 10:10] LABS: Appearance,Urine Turbid (Clear); Bacteria,Urine Moderate /hpf; Bilirubin,Urine Negative (Negative); Blood,Urine Negative (Negative); Budding Yeast,Urine Many /hpf; Color,Urine Dark Yellow; Glucose,Urine (UA) Negative (Negative); Hyaline Casts,Urine 47 /lpf (0-2); Ketones,Urine Trace (Negative); Leukocyte Esterase,Urine Large (Negative); Mucus,Urine Many /hpf; Nitrite,Urine Negative (Negative); PH, Urine 5.5 (5.0-8.0); Protein,Urine 1+ (Negative); RBC,Urine 19 /hpf (0-5); Specific Gravity,Urine 1.023 (1.001-1.035); Squamous Epithelial Cell,Urine 10 /hpf (0-4); Urobilinogen,Urine <2.0 mg/dL (<2.0); WBC,Urine >182 /hpf (0-5)
[2019-07-13] MEDS: RIVAROXABAN 20 MG TAB PO SCH ×2 (10:12→11:31)
[2019-07-13] MEDS: METOPROLOL TARTRATE 50 MG TAB PO SCH (10:19)
--- NOTE | 2019-07-13 10:40 | US ---
EXAMINATION TYPE: US abdomen limited DATE OF EXAM: 07/13/2019 COMPARISON: CT 2012. Abdominal x-ray from yesterday CLINICAL HISTORY: assess for fluid pocket please. Bloating and swelling. There is no ultrasound evidence of ascites in scanning the bilateral upper and lower quadrants on 4 i mages saved. IMPRESSION: As above.
[2019-07-13] MEDS: AZITHROMYCIN 500 MG TAB PO SCH (11:30)
[2019-07-13] MEDS: PYRIDOXINE 100 MG/ML 1 ML VIAL IVP SCH (11:32)
[2019-07-13] MEDS: SODIUM CHLORIDE 0.9% 1,000 ML IV SCH (12:48)
[2019-07-13 12:51] LABS: Alpha 1 Antitrypsin 94.5 mg/dL (99.0-242.0); Ceruloplasmin 12.9 mg/dL (20.0-60.0)
--- NOTE | 2019-07-13 12:57 | P.PN ---
Subjective Progress Note Date: 07/13/19 This is an 83-year-old female patient of Dr. Dr. Guevara with past medical history of CVA, paroxysmal atrial fibrillation on Xarelto, chronic pain syndrome, lumbar compression fracture and osteoporosis, restless leg syndrome, history of morbid obesity status post bariatric surgery. Patient was recently hospitalized in June and was treated for metabolic encephalopathy secondary to UTI and sepsis with generalized weakness and fatigue. Patient was also identified as failure to thrive. She was not eating well at that time. Patient was stabilized and discharged to home. Patient currently lives at home with her but her daughter has been staying with them for the past 6 weeks as the patient has not been doing well. Patient has not been eating since prior to her last admission. She has generalized weakness to the lower extremities and presents with lower extremity edema and erythema ecchymosis to the right lower extremity most likely secondary to a fall that occurred prior to her last admission. Patient also has history of having a GI workup in [place] which time she underwent EGD was found to have esophageal varices and was also told she had a fatty liver. Patient denies ever having daily alcohol intake. She does have a sister that from cirrhosis of the liver from hepatitis C. Recent outpatient lab work revealed iron 76, TIBC 112, iron saturation 67.86, ferritin 1073, vitamin B1 31, vitamin B6 less than 2 vitamin B 12 1488, vitamin D 25 134.4. Patient had outpatient CAT scan of the abdomen and pelvis done recently and this report will be obtained from the office. Patient presented to [facility] emergency [facility] for evaluation. WBC 6.8, Hemoglobin 14.7 and platelet count 123 INR 1.9, total bilirubin 1, AST 44, ALT 29 and alkaline phosphatase 59, TSH 4.480. KUB reveals nonobstructive bowel gas pattern. Ultrasound of the right lower extremity negative for DVT. Right Tib-fib x-ray shows no acute fracture. Chest x-ray reveals increased density right suprahilar region may reflect developing infiltrate. EKG atrial fibrillation with rate controlled. Patient admitted to the MedSurg floor and started on azithromycin and ceftriaxone for pneumonia, start vitamin B6 and thiamine, consult with GI for cirrhosis evaluation and neur ology for bilateral lower extremity weakness. X-rays of the lumbar and thoracic spine. 07/12: Thoracic spine x-ray showed mild decompression of deformities of T7-T8, T10 that are new from 2017. Diffuse osseous demineralization, exaggerated thoracic kyphosis, mild degenerative change and old compression deformity of T11. Lumbar x-ray revealed mild compression deformity T12 is new from 2017. Old compression deformities T 11 post kyphoplasty and L5 that appears chronic. Diffuse osseous demineralization and moderate degenerative disc disease. Patient has been seen by Dr. Dodge with recommendations for MRI of the cervical and thoracic spine to rule out spinal stenosis and to assess for compression fractures. Patient has been seen by GI and patient cleared for low sodium diet as tolerated, Pepcid twice daily and full liver serologies have been ordered. Patient may benefit from gene testing for hemochromatosis in the outpatient setting. Ammonia level less than 9, total protein PEP 4, repeat INR 1.5. Urinalysis was turbid with leukoesterase large, WBCs greater than 182, bacteria moderate, yeast budding many. Patient was started on Rocephin yesterday. Urine culture in progress. Acute hepatitis panel was negative. Dr. Green has ordered 1 dose of lactulose. Ultrasound of the abdomen revealed no ultrasound evidence of ascites. Patient seen today on the MedSur floor. She has taken some pills orally but is gagging now. She states this occurs most often after she takes pills. She denies any abdominal pain. She still states she is not eating anything. She does not harjit ear to be aspirating but consult with speech therapy will be requested. Patient may benefit by having EGD to further evaluate. Blood pressure was on the low side this morning and Lopressor decreased to 50 mg in the morning and continue 25 mg at bedtime. Objective - Vital Signs Vital signs: Vital Signs Temp 97.6 F 07/13/19 03:40 Pulse 106 H 07/13/19 09:36 Resp 16 07/13/19 07:36 BP 94/68 07/13/19 09:36 Pulse Ox 99 07/13/19 07:36 Intake & Output 07/12/19 07/13/19 07/13/19 18:59 06:59 18:59 Intake Total 100 137 Balance 100 137 Weight 74.843 kg Intake: Oral 100 137 Other: Voiding Method Bedside Commode # Voids 4 - Exam Review of Systems Constitutional: Reports anorexia, Reports chronic pain, Reports fatigue, Reports lethargy, Reports malaise, Reports poor appetite, Reports weakness, Denies chills, Denies chronic headaches, Denies fever Eyes: denies blurred vision, denies pain Ears, nose, mouth and throat: Denies dysphagia, Denies headache, Denies nasal congestion, Denies nasal discharge, Denies sore throat, Denies vertigo Cardiovascular: Reports edema, Reports leg edema, Denies chest pain, Denies decreased exercise tolerance, Denies dyspnea on exertion, Denies lightheadedness, Denies shortness of breath, Denies syncope Respiratory: Denies cough, Denies cough with sputum, Denies dyspnea, Denies excessive sputum, Denies hemoptysis, Denies home oxygen, Denies respiratory infections, Denies wheezing Gastrointestinal: Reports loss of appetite, Denies abdominal pain, Denies BRBPR, Denies diarrhea, Denies nausea, Denies vomiting Genitourinary: Denies dysuria, Denies hematuria, Denies urgency, Denies urinary frequency Musculoskeletal: Reports gait dysfunction, Reports muscle weakness, Denies f requent falls, Denies myalgias Integumentary: Reports color changes, Reports darkening of skin, Reports wounds, Denies pruritus, Denies rash Neurological: Reports gait dysfunction, Denies change in mentation, Denies change in speech, Denies numbness, Denies weakness Psychiatric: Denies anxiety, Denies depression Endocrine: Denies fatigue, Denies weight change Physical examination Gen: This is an 83-year-old female. Patient is resting in the ER stretcher and appears to be comfortable and in no acute distress. Daughter is at bedside. HEENT: Head is atraumatic, normocephalic. Pupils equal, round. Sclerae is anicteric. Oral mucous membranes are slightly dry. NECK: Supple. No JVD. No lymphadenopathy. No thyromegaly. LUNGS: Clear to auscultation. No wheezes or rhonchi. No intercostal retractions. HEART: Irregularly irregular rate and rhythm. No murmur. ABDOMEN: Soft. Bowel sounds are present. No masses. No tenderness. No ascites noted. EXTREMITIES: Bilateral lower extremity pedal edema and ecchymosis to the pretibial area on the right leg with warmth to the touch. NEUROLOGICAL: Patient is awake, alert and oriented x3. Cranial nerves 2 through 12 are grossly intact. Weakness to the bilateral lower extremities. Mild lower back discomfort with straight leg lift. Foot push pull equal. Hand grants administrator equal bilaterally. - Labs CBC & Chem 7: 07/12/19 09:15 07/12/19 09:15 Labs: Abnormal Lab Results - Last 24 Hours (Table) 07/13/19 07/13/19 Range/Units 07:18 09:40 PT 15.0 H (9.0-12.0) sec INR 1.5 H (<1.2) Urine Appearance Turbid H (Clear) Urine Protein 1+ H (Negative) Urine Ketones Trace H (Negative) Ur Leukocyte Esterase Large H (Negative) Urine RBC 19 H (0-5) /hpf Urine WBC >182 H (0-5) /hpf Urine WBC Clumps Occasional H (None) /hpf Ur Squamous Epith Cells 10 H (0-4) /hpf Urine Bacteria Moderate H (None) /hpf Hyaline Casts 47 H (0-2) /lpf Urine Mucus Many H (None) /hpf Urine Yeast (Budding) Many H (None) /hpf Assessment and Plan Plan: 1. Lower extremity weakness possibly due to compression fractures, spinal canal stenosis . Consult with neurology appreciated, lumbar and thoracic spine x-rays as above. Continue thiamine 100 mg daily, vitamin B12 6 100 mg daily. MRI c- spine and T-spine 2. Right lower extremity ecchymosis secondary to previous falls. 3. Lower extremity edema, anorexia and elevated INR ferritin, rule out cirrhosis of the liver. Patient has history of EGD last summer in [place] that is reported as having identified esophageal varices and workup also identified fatty liver. Report will be obtained from the office. Ultrasound negative for DVT. X-ray negative for fracture. Abdominal ultrasound revealed no ascites. Patient is status post lactulose 1 dose. 4. Right-sided pneumonia. Continue his azithromycin and ceftriaxone. 5. Anorexia and gagging on pills. Consult with speech therapy. No obvious signs of aspiration. Patient might benefit from repeat EGD. 6. Paroxysmal atrial fibrillation. Continue Xarelto 20 mg daily, Lopressor decreased to 50 mg in the morning and 25 mg in the evening 7. Recent treatment for UTI and sepsis. 8. Acute UTI. Await culture. Continue ceftriaxone for now. 9. Chronic lower extremity neuropathy. Continue gabapentin but decrease dose of 300 mg twice daily. 10. Macular degeneration. 11. Restless leg syndrome. Continue Elavil 50 mg at bedtime 12. Recurrent history of herpes. Discontinue Valtrex. 13. Chronic pain. Continue tramadol 50 mg every 6 hours. Patient will be admitted to the hospital for a minimum of 2 night stay. Discharge plan: To be determined. Possible subacute rehab. Consults with PT and OT. Impression and plan of care have been directed as dictated by the signing physician. Shazia Celeste nurse practitioner acting as scribe for signing physician.
--- NOTE | 2019-07-13 13:45 | P.PN ---
Progress Note - Text Progress Note Date: 07/13/19 Orthopedic spine: Consultation has been placed for the patient for further evaluation with a diagnoses of multiple compression fracture deformities at her thoracic and lumbar spines. X-ray imaging did show multiple compression fracture deformities indeterminate age with a history of previous kyphoplasty at T11. Patient has been seen and examined by neurology who states the patient has been experiencing upper extremity and lower extremity weakness. MRI imaging of the thoracic and cervical spine was ordered. Patient is currently receiving these MRIs. Patient was discussed in detail with nursing. We will plan for follow-up evaluation and consultation following the completion and interpretation of the MRI results. We did discuss depending on the cervical and thoracic MRI results and the patient's symptoms, we may plan to obtain an MRI of the lumbar spine for further evaluation.
--- NOTE | 2019-07-13 14:23 | XR ---
EXAMINATION TYPE: XR chest 2V DATE OF EXAM: 07/13/2019 COMPARISON: Prior chest x-ray 07/12/2019 HISTORY: Pneumonia TECHNIQUE: Frontal and lateral views of the chest are obtained. FINDINGS: There is blunting the posterior costophrenic angles. Increased AP diameter chest could be indicative of underlying COPD. Wedge compression deformity is present at the lower thoracic spine as on prior. Heart appears enlarged although patient is rotated. Aorta is dense. There is no evident pne umothorax. Interstitium is increased and the patient is rotated, lung volumes are low on the frontal view. IMPRESSION: Correlate for pulmonary venous hypertension and interstitial edema, suspect small pleura l effusions.
[2019-07-13] MEDS: THIAMINE 100 MG/ML 2 ML VIAL IVP SCH (15:07)
--- NOTE | 2019-07-13 15:36 | MR ---
MRI CERVICAL AND THORACIC SPINE: CLINICAL HISTORY: Frequent falls, back pain, and spinal canal stenosis. TECHNIQUE: Multiplanar, multisequence imaging of the cervical spine is performed without IV contrast. COMPARISON: MRI of the thoracic spine dated 11/26/2016 FINDINGS: There is an exaggerated lordosis of the cervical spine. Compression deformity of T2 is without bone m arrow edema indicative of a chronic fracture deformity. Vertebral body height loss is approximately 5 0% of the anterior cortex. There is mild compression deformity of T1 also appears chronic without bon e marrow edema with vertebral body height loss of approximately 20%. T2/T1 hyperintense vertebral bod y hemangioma is seen at T3 and likely of T4. No suspicious signal is seen of the cervical spinal cord . C2-C3: Facet arthropathy and uncovertebral hypertrophy are seen resulting in severe left neural sharyn inal narrowing and moderate right neuroforaminal narrowing. Disc desiccation is seen without spinal c anal stenosis. C3-C4: Uncovertebral hypertrophy and facet arthropathy creates mild bilateral neural foraminal narrow ing without spinal canal stenosis. C4-C5: There is a broad-based disc bulge with uncovertebral hypertrophy and facet arthropathy creatin g mild bilateral neural foraminal narrowing without spinal canal stenosis. C5-C6: There is a broad-based disc bulge and minimal uncovertebral hypertrophy resulting in very mild bilateral neural foraminal narrowing and slight narrowing of the ventral subarachnoid space. C6-C7: Disc desiccation is seen without spinal canal stenosis or neural foraminal narrowing. C7-T1: Disc desiccation is evident without spinal canal stenosis or neural foraminal narrowing. Thoracic spine: There is redemonstration of the known compression deformity at T11 demonstrated on the thoracic spine MRI of 11/26/2016. Similar mild degree of retropulsion is redemonstrated creating mild spinal canal s tenosis with approximately 50% vertebral body height loss. No bone marrow edema. T2/T3 1 hyperintense vertebral body hemangioma is seen of T7. Smaller vertebral body hemangioma of T12. Thoracic spinal c ord is grossly unremarkable in signal although somewhat limited by patient motion. Visualized lung demonstrate small to moderate pleural effusions that are partially visualized. Exaggerated thoracic kyphosis is centered at the compression deformity of T11. Multilevel degenerativ e disc disease is redemonstrated of the thoracic spine. New focal disc herniation is seen at T10-T11 narrowing narrowing the ventral subarachnoid space witho ut significant spinal stenosis. No appreciable neural foraminal narrowing of the thoracic levels. IMPRESSION: 1. New small central disc herniation at T10-T11 minimally narrowing the ventral subarachnoid space wi thout spinal canal stenosis. 2. Mild compression forming these of T1 and T2 without retropulsion, chronic without bone marrow clarisa a. Compression deformity of T11 is also chronic with retropulsion as seen on the exam of 2017 resulti ng in mild spinal canal stenosis. 3. Moderate multilevel degenerative disc disease of the cervical spine creating variable degrees of n eural foraminal narrowing as detailed above at each level.
[2019-07-13] MEDS: traMADol 50 MG TAB PO PRN (16:56)
--- NOTE | 2019-07-13 17:25 | P.PN ---
Subjective Progress Note Date: 07/13/19 Patient is laying comfortably in the bed. Appears slightly confused regarding place. Asking me to tell her children to take her to the hospital. She says "kids are not helping". Uncertain if she meant kids to her children or staff. Still complaining of weakness of the legs. PT worked with the patient and was 2 assist. I asked patient if she can walk up steps, states can do it without any problem. Objective - Vital Signs Vital signs: Vital Signs Temp 96.2 F L 07/13/19 15:35 Pulse 90 07/13/19 15:35 Resp 16 07/13/19 15:35 BP 105/83 07/13/19 15:35 Pulse Ox 99 07/13/19 15:35 Intake & Output 07/12/19 07/13/19 07/13/19 18:59 06:59 18:59 Intake Total 100 137 Balance 100 137 Weight 74.843 kg Intake: Oral 100 137 Other: Voiding Method Bedside Commode Bedside Commode # Voids 4 1 - Exam Patient's mental status is stable, slightly confused as mentioned above. Possible mild delirium. Cranial nerves are normal. Muscle strength deltoids are 5-, biceps 5-, triceps 4+ to 5-, application chemist is 5. Hip flexion is 3+, knee extension 5 to 5-with some giveaway weakness due to pain. Ankles and toes are normal. Patient has very significant peripheral edema over the royal bilaterally, not so much on the feet. Her shins are very tender to touch in the lower limbs. Reflexes are 1+ to 2+ in the upper limbs, 2+ at the knees, 1+ ankles and plantars are possibly upgoing. Sensory touch is equal. - Labs CBC & Chem 7: 07/12/19 09:15 07/12/19 09:15 Labs: Abnormal Lab Results - Last 24 Hours (Table) 07/13/19 07/13/19 07/13/19 Range/Units 07:18 07:37 09:40 PT 15.0 H (9.0-12.0) sec INR 1.5 H (<1.2) Total Protein (PEP) 4.0 L (6.2-8.2) g/dL [id number] 94.5 L (99.0-242.0) mg/dL Ceruloplasmin 12.9 L (20.0-60.0) mg/dL Urine Appearance Turbid H (Clear) Urine Protein 1+ H (Negative) Urine Ketones Trace H (Negative) Ur Leukocyte Esterase Large H (Negative) Urine RBC 19 H (0-5) /hpf Urine WBC >182 H (0-5) /hpf Urine WBC Clumps Occasional H (None) /hpf Ur Squamous Epith Cells 10 H (0-4) /hpf Urine Bacteria Moderate H (None) /hpf Hyaline Casts 47 H (0-2) /lpf Urine Mucus Many H (None) /hpf Urine Yeast (Budding) Many H (None) /hpf Microbiology - Last 24 Hours (Table) 07/13/19 09:40 Urine Culture - Preliminary Urine,Voided 07/12/19 12:44 Blood Culture - Preliminary Blood No Growth after 24 hours Assessment and Plan Assessment: * 83-year-old female admitted with frequent falls. Examination revealed symmetric weakness of bilateral upper and lower extremities, proximal> distal, with relatively brisk reflexes, and bilateral Babinski. No significant spinal canal stenosis noted on the cervical or thoracic spine MRI. * Vitamins B6 deficiency with vitamin B6 level of <2 * Folate deficiency with folate level 3.6 * Vitamin B1 deficiency with levels 31 (38-122) * Vitamin D deficiency, with level 25 Plan: * MRI of cervical and thoracic spine revealed new small central disc herniation at T10-T11 minimally narrowing the ventral subarachnoid space without spinal canal stenosis. Mild compression deformity of T1 and T2 without retropulsion, chronic without bone marrow edema. Compression deformity of T11 is also chronic with retropulse as seen on the exam of 2017 resulting in mild spinal canal stenosis. Moderate multilevel degenerative disc disease of the cervical spine creating we will degrees of neural foraminal narrowing. Overall, there is no significant spinal canal stenosis. * Patient's recent B12 level is normal 1488, folate was low at 3.6, B6 <2, thiamine 31 also low. Patient has multiple vitamin deficiencies. We will start replacement. Homocystine level is 13.31. TSH normal. Ammonia normal <9. CPK is normal 25. AST mildly elevated 44, ALT 29. * PT OT and gait training. * Patient recommended to use walker to prevent falls.
[2019-07-13] MEDS ORDERED: ACETAMINOPHEN TAB 325 MG TAB PO PRN (17:52)
[2019-07-13] MEDS ORDERED: ERGOCALCIFEROL 50,000 UNIT CAP PO SCH (18:00)
[2019-07-13] MEDS: MIRTAZAPINE 15 MG TAB PO SCH (18:39)
[2019-07-13] MEDS: FOLIC ACID 1 MG TAB PO SCH (18:43)
[2019-07-13] MEDS ORDERED: AMITRIPTYLINE HCL 25 MG TAB PO SCH (21:00)
[2019-07-13] MEDS: METOPROLOL TARTRATE 25 MG TAB PO SCH (22:45)
--- NOTE | 2019-07-14 08:04 | P.PN ---
Subjective Progress Note Date: 07/13/19 Principal diagnosis: Cirrhosis, nausea, history of varices Patient seen lying in bed. No acute events overnight. Nursing staff does report some taking this morning. Objective - Vital Signs Vital signs: Vital Signs Temp 97.5 F L 07/14/19 03:50 Pulse 101 H 07/14/19 07:12 Resp 14 07/14/19 07:12 BP 95/66 07/14/19 07:12 Pulse Ox 93 L 07/14/19 03:50 Intake & Output 07/13/19 07/14/19 07/14/19 18:59 06:59 18:59 Intake Total 137 450 Balance 137 450 Intake: Oral 137 450 Other: Voiding Method Bedside Commode Bedside Commode Diaper # Voids 1 1 - Exam On physical examination, patient appears comfortable in no apparent distress. HEAD: Normocephalic, atraumatic. EYES: No scleral icterus. No conjunctival injection. MOUTH: No lesions, tongue midline. NECK: Trachea midline, no gross abnormalities. ABDOMEN: Soft, obese, nontender. No guarding or rigidity. EXTREMITIES: Bilateral lower extremity edema. SKIN: No rashes, no jaundice. NEUROLOGIC: Alert and oriented to person. - Labs CBC & Chem 7: 07/12/19 09:15 07/12/19 09:15 Labs: Abnormal Lab Results - Last 24 Hours (Table) 07/13/19 07/13/19 Range/Units 07:37 09:40 Total Protein (PEP) 4.0 L (6.2-8.2) g/dL [id number] 94.5 L (99.0-242.0) mg/dL Ceruloplasmin 12.9 L (20.0-60.0) mg/dL Urine Appearance Turbid H (Clear) Urine Protein 1+ H (Negative) Urine Ketones Trace H (Negative) Ur Leukocyte Esterase Large H (Negative) Urine RBC 19 H (0-5) /hpf Urine WBC >182 H (0-5) /hpf Urine WBC Clumps Occasional H (None) /hpf Ur Squamous Epith Cells 10 H (0-4) /hpf Urine Bacteria Moderate H (None) /hpf Hyaline Casts 47 H (0-2) /lpf Urine Mucus Many H (None) /hpf Urine Yeast (Budding) Many H (None) /hpf Microbiology - Last 24 Hours (Table) 07/13/19 09:40 Urine Culture - Preliminary Urine,Voided 07/12/19 12:44 Blood Culture - Preliminary Blood No Growth after 24 hours Assessment and Plan (1) History of cirrhosis of liver Narrative/Plan: 83-year-old female with multiple medical comorbidities including a reported history of liver disease and prior diagnosis of esophageal varices in the summer of 2018 who presents to the hospital for constellation of symptoms including weakness and lower extremity pain and swelling. Patient reports previously being told of a fatty liver disease but has had elevated liver enzymes in the past. She was seen in [place] for GI bleed in May 2019 with report obtained in findings of esophagitis with biopsies taken and 3 small columns of varices. Current Visit: Yes Status: Acute Code(s): Z87.19 - PERSONAL HISTORY OF OTHER DISEASES OF THE DIGESTIVE SYSTEM SNOMED Code(s): 714412174 (2) Elevated liver enzymes Current Visit: Yes Status: Acute Code(s): R74.8 - ABNORMAL LEVELS OF OTHER SERUM ENZYMES SNOMED Code(s): 198556436 (3) History of esophageal varices Current Visit: Yes Status: Acute Code(s): Z87.19 - PERSONAL HISTORY OF OTHER DISEASES OF THE DIGESTIVE SYSTEM SNOMED Code(s): 41194849294480831 Plan: Supportive care Okay for sodium restricted diet as tolerated Pepcid change to Protonix twice daily in the setting of esophagitis on EGD from 05/2019 Report of EGD and imaging from May 2019 revealed Full liver serologies ordered, and pending Iron studies did show elevated iron and ferritin, patient will benefit from [place] testing for hemochromatosis (HFE gene testing in the outpatient setting) Continue to monitor CBC, BMP, liver enzymes Ultrasound abdomen ordered for evaluation of liver, without pocket of ascites noted Thank you for allowing us to participate in the care of the patient we will continue to follow
[2019-07-14] MEDS: FOLIC ACID 1 MG TAB PO SCH (08:31)
[2019-07-14] MEDS: METOPROLOL TARTRATE 50 MG TAB PO SCH (08:31)
[2019-07-14] MEDS: GABAPENTIN 300 MG CAP PO SCH ×2 (08:31→21:00)
[2019-07-14] MEDS: AZITHROMYCIN 500 MG TAB PO SCH (08:31)
[2019-07-14] MEDS: PANTOPRAZOLE 40 MG/10 ML VIAL IVP SCH ×2 (08:31→21:03)
[2019-07-14] MEDS: PYRIDOXINE 100 MG/ML 1 ML VIAL IVP SCH (08:32)
[2019-07-14] MEDS: THIAMINE 100 MG/ML 2 ML VIAL IVP SCH (08:32)
[2019-07-14] MEDS: RIVAROXABAN 20 MG TAB PO SCH (08:32)
[2019-07-14 08:39] LABS: HCT 38.6 % (34.0-46.0); HGB 12.7 gm/dL (11.4-16.0); MCH 35.5 pg (25.0-35.0); MCV 107.5 fL (80.0-100.0); Macrocytosis Marked; Platelet Count 122 k/uL (150-450); RBC 3.59 m/uL (3.80-5.40); RDW 14.5 % (11.5-15.5); WBC 6.4 k/uL (3.8-10.6)
[2019-07-14 08:52] LABS: ALT 29 U/L (4-34); AST 38 U/L (14-36); African American GFR (CKD) >90 (>60 ml/min/1.73 sqM); Alkaline Phosphatase 57 U/L (38-126); Anion Gap 7 mmol/L; Blood Urea Nitrogen 15 mg/dL (7-17); Calcium 7.4 mg/dL (8.4-10.2); Carbon Dioxide 25 mmol/L (22-30); Chloride 103 mmol/L (98-107); Glucose 62 mg/dL (74-99); Non-African American GFR(CKD) 87 (>60 ml/min/1.73 sqM); Potassium 3.6 mmol/L (3.5-5.1); Sodium 135 mmol/L (137-145); Total Bilirubin 0.5 mg/dL (0.2-1.3); Total Protein 4.3 g/dL (6.3-8.2)
--- NOTE | 2019-07-14 11:13 | P.CNOR ---
History of Present Illness - [facility] Consult date: 07/14/19 Requesting physician: Shazia Celeste Consult reason: fracture (thoracic and lumbar compression fractures) History of present illness: Patient is an pleasant 83-year-old female who is seen and examined at bedside after consultation was placed for evaluation of previous diagnosis multiple compression fracture deformities at her thoracic and lumbar spines. Patient was attended to be seen and examined yesterday but was receiving cervical and thoracic MRI imaging at that time. This imaging has been completed and interpreted. She previously had x-ray imaging performed of the thoracic and lumbar spines during her admission to the hospital. Patient has a medical history which includes CVA, proximal atrial fibrillation currently on Xarelto, history of thoracic and lumbar compression fractures, and history of morbid obesity status post bariatric surgery. Patient was recently hospitalized in June 2019 and treated for metabolic encephalopathy secondary to urinary tract infection and sepsis with generalized weakness and fatigue. Patient currently has a urinary tract infection. Patient is significantly confused at the bedside but does attempt to answer questions appropriately in regards to her symptoms. She is not oriented to place and states she is in her apartment. Nursing states the patient has been not eating much over the past 2 weeks. Patient states she is unwilling to eat because "the man sitting across from her will not eat". Patient states she is not exactly sure why she was admitted to the hospital. In regards to her symptoms, the patient states she has not had any changes in regards to her thoracic spine or lumbar spine prior to or since her admission. She states she has some pain throughout her thoracic and lumbar spine which is chronic for her. She has not had any change in her upper extremities. She is able to move her upper extremities through active range of motion without significant difficulty while lying in bed. She does have difficulty with lifting her lower extremities. She has significant swelling in the bilateral lo wer extremities states her legs feel heavy when trying to lift them. She is not currently complaining of any upper extremity radiculopathy or lower extremity radiculopathy. Nursing states she spends most of her time sleeping. At the bedside she is arousable and stays awake during my consultation. Patient states she does have a history of surgical intervention at her spine. She does have a history of T11 kyphoplasty. She does admit to pain in her bilateral calves. Her calves are warm but she has significant coldness of the feet bilaterally. She does have pitting edema in the bilateral lower extremities. She has been seen and examined by neurology who obtained the cervical and thoracic MRI imaging to rule out spinal stenosis due to the patient's upper extremity and lower extremity weakness along with a positive Babinski sign. Patient does not feel she has had any changes in regards to her spine or her upper and lower extremities. Patient was originally admitted with dehydration and pneumonia. Patient has a history of esophageal varices with imaging supporting cirrhotic appearing liver and elevated liver enzymes. Patient has been seen by gastroenterology. Past Medical History Past Medical History: Atrial Fibrillation, CVA/TIA, Osteoarthritis (OA) Additional Past Medical History / Comment(s): RLS, CHRONIC PAIN, VERTIGO, MACULAR DEGENERATION, paroxysmal atrial fibrillation, esophageal varices, fatty liver, pathologic compression fracture and osteoporosis History of Any Multi-Drug Resistant Organisms: None Reported Past Surgical History: Adenoidectomy, Appendectomy, Bariatric Surgery, Cholecystectomy, Hernia Repair, Hysterectomy, Orthopedic Surgery, Tonsillectomy Additional Past Surgical History / Comment(s): baiatric surgery Past Psychological History: Depression Smoking Status: Never smoker Past Alcohol Use History: None Reported Past Drug Use History: None Reported Additional Drug Use History / Comment(s): Patient is a lifelong nonsmoker. Only social alcohol use in the past. Patient is very had daily alcohol intake. No illicit drug use. Patient lives at home with her . - Past Family History Mother History Unknown: Yes Additional Family Medical History / Comment(s): Mother at age 62 from breast cancer. Father Additional Family Medical History / Comment(s): Father at age 74 from a motor vehicle accident with history of diabetes and coronary artery disease. Brother(s) Additional Family Medical History / Comment(s): Patient has 2 brothers and one has passed with history of coronary artery disease and alcohol abuse. One brother is alive with history of alcohol abuse and coronary artery disease. Sister(s) Additional Family Medical History / Comment(s): Patient has one sister that has passed from cirrhosis of the liver secondary to hepatitis C from blood transfusion. Daughter(s) Additional Family Medical History / Comment(s): Patient has 2 daughters and one has history of ADD and depression, second daughter has history of alcohol abuse and bipolar disorder. Son(s) Additional Family Medical History / Comment(s): Patient has 3 sons one has history of coronary artery disease depression and alcohol abuse. Medications and Allergies Home Medications Medication Instructions Recorded Confirmed Type Gabapentin 300 mg PO QAM 10/13/17 07/12/19 History Maculapro 1 tab PO DAILY 10/13/17 07/12/19 History Metoprolol Tartrate [Lopressor] 100 mg PO QAM 10/13/17 07/12/19 History Rivaroxaban [Xarelto] 20 mg PO DAILY 10/13/17 07/12/19 History rOPINIRole HCL [Requip] 0.5 mg PO QAM 10/13/17 07/12/19 History rOPINIRole HCL [Requip] 1 mg PO HS 06/24/19 07/12/19 History valACYclovir HCL [Valacyclovir] 1,000 mg PO DAILY 06/24/19 07/12/19 History Amitriptyline HCl [Elavil] 50 tab PO HS #0 06/26/19 07/12/19 Rx Mirtazapine [Remeron] 15 mg PO W/SUPPER #30 tab 06/27/19 07/12/19 Rx traMADol HCl [Ultram] 50 mg PO Q6H PRN #12 tab 06/27/19 07/12/19 Rx Gabapentin 900 mg PO HS 07/12/19 07/12/19 History Metoprolol Tartrate [Lopressor] 25 mg PO HS 07/12/19 07/12/19 History Ondansetron [Zofran] 4 mg PO Q6H PRN 07/12/19 07/12/19 History Allergies Allergy/AdvReac Type Severity Reaction Status Date / Time No Known Allergies Allergy Verified 07/12/19 12:27 Physical Examination Physical exam: Patient is asleep but is arousable and stays awake during consultation; patient is not appropriate to place and is confused Vital signs stable Adequate chest excursion with deep inspiration and expiration Examination of thoracic and lumbar spine reveals skin is intact with no abrasions, lacerations, or bruises; no erythema, purulence or signs of infection No significant pain with palpation over the thoracic or lumbar spines I do not visualize the well-healed incision site from her previous T11 kyphoplasty Dorsiflexion, plantarflexion, and extensor hallucis longus positive sustained bilaterally Dorsiflexion and plantar flexion strength 5/5 Evidence of significant at least 2+ pitting edema in the bilateral lower extremities Patient has difficulty lifting legs off the bed independently No evidence of lower extremity hyperreflexia Positive Babinski sign bilaterally lower extremities Straight leg test negative bilateral lower extremities Negative Lasegue's test bilaterally Calves are warm to palpation Significant pain with palpation of the calves bilaterally Patient is able to sense palpation to the bilateral feet but feet and ankles are significantly cold during palpation Patient is able to perform some active range of motion of bilateral upper extremities independently without significant difficulty Motor strength in the upper extremity is 4/5 including the triceps bilaterally Negative Margo sign bilaterally upper extremities Results Pertinent studies: MRI of the cervical and thoracic spines taken on 07/13/2019: T1 mild chronic compression fracture deformity with approximately 10% height loss without evidence of bone marrow edema; T2 chronic compression fracture deformity with approximately 25% height loss without evidence of bone marrow edema; T3 and T7 hemangiomas and likely T4; T11 evidence of kyphoplasty of compression fracture deformity with approximately 50% height loss of superior endplate; no evidence of significant spinal canal stenosis throughout the cervical or thoracic spine; no evidence of new compression fracture deformity; exaggerated thoracic kyphosis X-rays of the thoracic and lumbar spines taken on 07/12/2019: Chronic L5 c ompression fracture unchanged since imaging from 2013; L5-S1 severe degenerative disc disease; T2 compression fracture deformity of approximately 25% height loss at the superior endplate with evidence of sclerosis of the superior endplate; T11 evidence of kyphoplasty of compression fracture deformity with approximately 50% height loss; reviewing of thoracic x-ray imaging shows there may be evidence of mild compression fracture deformities at T7, T8, and T10 but are better visualized on thoracic MRI imaging and there does not appear to be compression fracture deformities at these levels; visualized fractures at T1 seen on MRI imaging is difficult to visualize on x-ray imaging; T10-11 anterior degenerative disc disease with anterior osteophytic spurring - Labs Labs: Abnormal Lab Results - Last 24 Hours (Table) 07/13/19 07/14/19 07/14/19 Range/Units 07:37 08:09 08:09 RBC 3.59 L (3.80-5.40) m/uL MCV 107.5 H (80.0-100.0) fL MCH 35.5 H (25.0-35.0) pg Plt Count 122 L (150-450) k/uL Macrocytosis Marked A Sodium 135 L (137-145) mmol/L Glucose 62 L (74-99) mg/dL Calcium 7.4 L (8.4-10.2) mg/dL AST 38 H (14-36) U/L Total Protein 4.3 L (6.3-8.2) g/dL Total Protein (PEP) 4.0 L (6.2-8.2) g/dL Albumin 2.0 L (3.5-5.0) g/dL Dllwq-6-Kpbxolwltan 94.5 L (99.0-242.0) mg/dL Ceruloplasmin 12.9 L (20.0-60.0) mg/dL Microbiology - Last 24 Hours (Table) 07/13/19 09:40 Urine Culture - Preliminary Urine,Voided 07/12/19 12:44 Blood Culture - Preliminary Blood No Growth after 24 hours H & H 07/12/19 07/14/19 Range/Units 09:15 08:09 Hgb 14.7 12.7 (11.4-16.0) gm/dL Hct 44.9 38.6 (34.0-46.0) % Coagulation 07/12/19 07/13/19 Range/Units 09:15 07:18 INR 1.9 H 1.5 H (<1.2) Result Diagrams: 07/14/19 08:09 07/14/19 08:09 Assessment and Plan Assessment: Assessment: Chronic compression fracture deformities at T1, T2, T11, and L5 History of T11 kyphoplasty Hemangioma at T3 and T7 and likely T4 L5-S1 severe degenerative disc disease T10-11 anterior degenerative disc disease with anterior osteophytic spurring Diffuse demineralization of the thoracic and lumbar spines an x-ray imaging Exaggerated thoracic kyphosis Positive Babinski sign Bilateral calf pain Bilateral lower extremity edema Coldness to palpation over the bilateral feet and ankles Upper extremity weakness Confusion and not oriented to place Current urinary tract infection Recently treated for metabolic encephalopathy due to urinary tract infection and sepsis History of CVA Proximal atrial fibrillation currently on Xarelto History of morbid obesity status post bariatric surgery Anorexia; patient has not consumed much food over the past 2 weeks Dehydration Pneumonia Esophageal varices Elevated liver enzymes (1) Chronic thoracic back pain Current Visit: Yes Status: Acute Code(s): M54.6 - PAIN IN THORACIC SPINE; G89.29 - OTHER CHRONIC PAIN SNOMED Code(s): 036485572712499 (2) Chronic lumbar pain Current Visit: Yes Status: Acute Code(s): M54.5 - LOW BACK PAIN; G89.29 - OTHER CHRONIC PAIN SNOMED Code(s): 872607388 (3) Lumbosacral disc disease Current Visit: Yes Status: Acute Code(s): M51.9 - UNSP THORACIC, THORACOLUM AND LUMBOSACR INTVRT DISC DISORDER SNOMED Code(s): 705903729 (4) T1 vertebral fracture Current Visit: Yes Status: Acute Code(s): S22.019A - UNSP FRACTURE OF FIRST THORACIC VERTEBRA, INIT FOR CLOS FX SNOMED Code(s): 800284107 (5) T2 vertebral fracture Current Visit: Yes Status: Acute Code(s): S22.029A - UNSP FRACTURE OF SECOND THORACIC VERTEBRA, INIT FOR CLOS FX SNOMED Code(s): 504009940 (6) L5 vertebral fracture Current Visit: Yes Status: Acute Code(s): S32.059A - UNSP FRACTURE OF FIFTH LUMBAR VERTEBRA, INIT FOR CLOS FX SNOMED Code(s): 012627124 (7) History of kyphoplasty Current Visit: Yes Status: Acute Code(s): Z98.890 - OTHER SPECIFIED POSTPROCEDURAL STATES SNOMED Code(s): 223234710 (8) T11 vertebral fracture Current Visit: Yes Status: Acute Code(s): S22.089A - UNSP FRACTURE OF T11- T12 VERTEBRA, INIT FOR CLOS FX SNOMED Code(s): 519118115 (9) Hemangioma of bone Current Visit: Yes Status: Acute Code(s): D18.09 - HEMANGIOMA OF OTHER SITES SNOMED Code(s): 304938717643050 (10) Kyphosis Current Visit: Yes Status: Acute Code(s): M40.209 - UNSPECIFIED KYPHOSIS, SITE UNSPECIFIED SNOMED Code(s): 653643670 (11) Babinski reflex Current Visit: Yes Status: Acute Code(s): R29.2 - ABNORMAL REFLEX SNOMED Code(s): 480860347 (12) Bilateral calf pain Current Visit: Yes Status: Acute Code(s): M79.661 - PAIN IN RIGHT LOWER LEG; M79.662 - PAIN IN LEFT LOWER LEG SNOMED Code(s): 03143386525574788 (13) Edema of lower extremity present on examination Current Visit: Yes Status: Acute Code(s): R60.0 - LOCALIZED EDEMA SNOMED Code(s): 087828362 (14) Bilateral cold feet Current Visit: Yes Status: Acute Code(s): R20.9 - UNSPECIFIED DISTURBANCES OF SKIN SENSATION SNOMED Code(s): 803050761 (15) Confusion Current Visit: Yes Status: Acute Code(s): R41.0 - DISORIENTATION, UNSPECIFIED SNOMED Code(s): 667822312 (16) Paroxysmal A-fib Current Visit: Yes Status: Acute Code(s): I48.0 - PAROXYSMAL ATRIAL FIBRILLATION SNOMED Code(s): 898477552 (17) Anticoagulant long-term use Current Visit: Yes Status: Acute Code(s): Z79.01 - ALF (CURRENT) USE OF ANTICOAGULANTS SNOMED Code(s): 539642581 (18) H/O bariatric surgery Current Visit: Yes Status: Acute Code(s): Z98.84 - BARIATRIC SURGERY STATUS SNOMED Code(s): 400268157 (19) History of CVA (cerebrovascular accident) Current Visit: Yes Status: Acute Code(s): Z86.73 - PRSNL HX OF TIA (TIA), AND CEREB INFRC W/O RESID DEFICITS SNOMED Code(s): 281944527 (20) Anorexia Current Visit: Yes Status: Acute Code(s): R63.0 - ANOREXIA SNOMED Code(s): 68310111 (21) Urinary tract infection Current Visit: No Status: Acute Code(s): N39.0 - URINARY TRACT INFECTION, SITE NOT SPECIFIED SNOMED Code(s): 14693591 (22) Dehydration Current Visit: Yes Status: Acute Code(s): E86.0 - DEHYDRATION SNOMED Code(s): 94456327 (23) Elevated liver enzymes Current Visit: Yes Status: Acute Code(s): R74.8 - ABNORMAL LEVELS OF OTHER SERUM ENZYMES SNOMED Code(s): 871396821 (24) History of esophageal varices Current Visit: Yes Status: Acute Code(s): Z87.19 - PERSONAL HISTORY OF OTHER DISEASES OF THE DIGESTIVE SYSTEM SNOMED Code(s): 01127944525416592 (25) Pneumonia Current Visit: Yes Status: Acute Code(s): J18.9 - PNEUMONIA, UNSPECIFIED O RGANISM SNOMED Code(s): 274415864 (26) Bilateral lower extremity edema Current Visit: Yes Status: Acute Code(s): R60.0 - LOCALIZED EDEMA SNOMED Code(s): 820584657 (27) Upper extremity weakness Current Visit: Yes Status: Acute Code(s): R29.898 - OTH SYMPTOMS AND SIGNS INVOLVING THE MUSCULOSKELETAL SYSTEM SNOMED Code(s): 950466732 Plan: Plan: 1. After physical examination of the patient, further discussion with the patient about her symptoms, and reviewing of imaging, we're not currently complaining for further imaging or acute care regards to the patient's thoracic or lumbar spines. She does have multiple chronic compression fracture deformities at T1, T2, T11, and L5 with a history of T11 kyphoplasty. She is not experiencing any significant change in regards to her thoracic or lumbar spines. She does admit to chronic pain at her thoracic and lumbar spines. She is not currently experiencing any upper extremity or lower extremity radiculopathy. She has been seen and examined by neurology. After reviewing of her MRI imaging, it does not appear neurology is planning for more imaging at this time. MRI imaging of the cervical and thoracic spines did not show evidence of any significant herniated nucleus pulposus or spinal canal stenosis. Patient does have some weakness with her triceps bilaterally. She feels her upper extremity symptoms have remained the same has not been experiencing any change. She does have significant swelling in the bilateral lower extremities and has difficulty lifting her legs and she states they feel heavy. She does not admit to specific weakness but states she generally feels weak overall. Patient does have a history of atrial fibrillation and is currently on Xarelto. Patient does have warmth to palpation over the bilateral calves but has significant pain with palpation of the calves bilaterally and is significantly cold with palpation over the bilateral ankles and feet. Patient did have a Doppler right lower extremity in the emergency department which was negative for DVT at that time. Given the patient's significant pain and physical exam findings, I do feel it is necessary to obtain a new ultrasound Doppler of the right lower extremity as well as an ultrasound Doppler for the left lower extremity. If she would have been a have Doppler findings positive for DVT, we would defer treatment to medicine. At this time, I do not feel that the patient's symptoms are specifically stemming in regards to her thoracic or lumbar spines. Patient is currently confused at the bedside but is able to answ er some questions appropriately in regards to her spine and upper and lower extremity symptoms. I did does not appear that any surgical intervention specifically in regards to her cervical, thoracic, ot lumbar spine would provide any significant improvement of the generalized weakness she is experiencing. She does have significant swelling of bilateral lower extremities which could make it difficult for her to lift her lower extremities. Patient has other significant current comorbidities. Patient has declined to eat much food over the past 2 weeks. She was also recently treated for urinary tract infection and sepsis with metabolic encephalopathy. Patient is currently being treated for pneumonia and has a urinary tract infection. She is also being seen by gastroenterology in regards to elevated liver enzymes and esophageal varices with results indicative of cirrhosis of the liver. At this time, we feel the patient should continue with conservative treatment and continue to follow with other multiple medical providers for all her other multiple medical comorbidities. Time with Patient: Greater than 30 (Including obtaining history, physical examination, reviewing of imaging, and dictation.)
--- NOTE | 2019-07-14 11:54 | P.PN ---
Subjective Progress Note Date: 07/14/19 This is an 83-year-old female patient of Dr. Dr. Guevara with past medical history of CVA, paroxysmal atrial fibrillation on Xarelto, chronic pain syndrome, lumbar compression fracture and osteoporosis, restless leg syndrome, history of morbid obesity status post bariatric surgery. Patient was recently hospitalized in June and was treated for metabolic encephalopathy secondary to UTI and sepsis with generalized weakness and fatigue. Patient was also identified as failure to thrive. She was not eating well at that time. Patient was stabilized and discharged to home. Patient currently lives at home with her but her daughter has been staying with them for the past 6 weeks as the patient has not been doing well. Patient has not been eating since prior to her last admission. She has generalized weakness to the lower extremities and presents with lower extremity edema and erythema ecchymosis to the right lower extremity most likely secondary to a fall that occurred prior to her last admission. Patient also has history of having a GI workup in [place] which time she underwent EGD was found to have esophageal varices and was also told she had a fatty liver. Patient denies ever having daily alcohol intake. She does have a sister that from cirrhosis of the liver from hepatitis C. Recent outpatient lab work revealed iron 76, TIBC 112, iron saturation 67.86, ferritin 1073, vitamin B1 31, vitamin B6 less than 2 vitamin B 12 1488, vitamin D 25 134.4. Patient had outpatient CAT scan of the abdomen and pelvis done recently and this report will be obtained from the office. Patient presented to [facility] emergency center for evaluation. WBC 6.8, Hemoglobin 14.7 and platelet count 123 INR 1.9, total bilirubin 1, AST 44, ALT 29 and alkaline phosphatase 59, TSH 4.480. KUB reveals nonobstructive bowel gas pattern. Ultrasound of the right lower extremity negative for DVT. Right Tib-fib x-ray shows no acute fracture. Chest x-ray reveals increased density right suprahilar region may reflect developing infiltrate. EKG atrial fibrillation with rate controlled. Patient admitted to the MedSurg floor and started on azithromycin and ceftriaxone for pneumonia, start vitamin B6 and thiamine, consult with GI for cirrhosis evaluation and neur ology for bilateral lower extremity weakness. X-rays of the lumbar and thoracic spine. 07/12: Thoracic spine x-ray showed mild decompression of deformities of T7-T8, T10 that are new from 2017. Diffuse osseous demineralization, exaggerated thoracic kyphosis, mild degenerative change and old compression deformity of T11. Lumbar x-ray revealed mild compression deformity T12 is new from 2017. Old compression deformities T 11 post kyphoplasty and L5 that appears chronic. Diffuse osseous demineralization and moderate degenerative disc disease. Patient has been seen by Dr. Dodge with recommendations for MRI of the cervical and thoracic spine to rule out spinal stenosis and to assess for compression fractures. Patient has been seen by GI and patient cleared for low sodium diet as tolerated, Pepcid twice daily and full liver serologies have been ordered. Patient may benefit from gene testing for hemochromatosis in the outpatient setting. Ammonia level less than 9, total protein PEP 4, repeat INR 1.5. Urinalysis was turbid with leukoesterase large, WBCs greater than 182, bacteria moderate, yeast budding many. Patient was started on Rocephin yesterday. Urine culture in progress. Acute hepatitis panel was negative. Dr. Green has ordered 1 dose of lactulose. Ultrasound of the abdomen revealed no ultrasound evidence of ascites. Patient seen today on the MedSur floor. She has taken some pills orally but is gagging now. She states this occurs most often after she takes pills. She denies any abdominal pain. She still states she is not eating anything. She does not harjit ear to be aspirating but consult with speech therapy will be requested. Patient may benefit by having EGD to further evaluate. Blood pressure was on the low side this morning and Lopressor decreased to 50 mg in the morning and continue 25 mg at bedtime. 07/13: Patient is lying down in bed in no apparent distress she continues to be negative not participating in any activities she is not eating and if her food at this point in time, we'll discontinue amitriptyline, discontinue Remeron, patient was seen by multiple specialties including neurology, spine surgery, and the gastroenterology, patient underwent MRI of the cervical and thoracic spine that showed degenerative disc disease of the cervical spine without significant spinal stenosis despite the weakness in upper extremities and lower extremities that is both proximal and distal and also was found to have a mild compression fracture of T1 and T2 about 10% of the vertebrae without evidence of any retropulsion, no evidence of any surgical intervention that would benefit this patient at this point in time, patient will be taken off her vitamin D again as her level was extremely elevated with 34 just a few weeks back, we will continue with folic acid 1 mg once every day continue vitamin supplements, physical therapy evaluation, professor of social work consultation for discharge planning. Objective - Vital Signs Vital signs: Vital Signs Temp 97.5 F L 07/14/19 03:50 Pulse 101 H 07/14/19 07:12 Resp 14 07/14/19 07:12 BP 95/66 07/14/19 07:12 Pulse Ox 93 L 07/14/19 03:50 Intake & Output 07/13/19 07/14/19 07/14/19 18:59 06:59 18:59 Intake Total 137 450 Balance 137 450 Intake: Oral 137 450 Other: Voiding Method Bedside Commode Bedside Commode Bedside Commode Diaper Diaper # Voids 1 1 - Exam Review of Systems Constitutional: Reports anorexia, Reports chronic pain, Reports fatigue, Reports lethargy, Reports malaise, Reports poor appetite, Reports weakness, Denies chills, Denies chronic headaches, Denies fever Eyes: denies blurred vision, denies pain Ears, nose, mouth and throat: Denies dysphagia, Denies headache, Denies nasal congestion, Denies nasal discharge, Denies sore throat, Denies vertigo Cardiovascular: Reports edema, Reports leg edema, Denies chest pain, Denies decreased exercise tolerance, Denies dyspnea on exertion, Denies lightheadedness, Denies shortness of breath, Denies syncope Respiratory: Denies cough, Denies cough with sputum, Denies dyspnea, Denies excessive sputum, Denies hemoptysis, Denies home oxygen, Denies respiratory infections, Denies wheezing Gastrointestinal: Reports loss of appetite, Denies abdominal pain, Denies BRBPR, Denies diarrhea, Denies nausea, Denies vomiting Genitourinary: Denies dysuria, Denies hematuria, Denies urgency, Denies urinary frequency Musculoskeletal: Reports gait dysfunction, Reports muscle weakness, Denies frequent falls, Denies myalgias Integumentary: Reports color changes, Reports darkening of skin, Reports wounds, Denies pruritus, Denies rash Neurological: Reports gait dysfunction, Denies change in mentation, Denies change in speech, Denies numbness, Denies weakness Psychiatric: Denies anxiety, Denies depression Endocrine: Denies fatigue, Denies weight change Physical examination Gen: This is an 83-year-old female. Patient is resting in the ER stretcher and appears to be comfortable and in no acute distress. Daughter is at bedside. HEENT: Head is atraumatic, normocephalic. Pupils equal, round. Sclerae is anicteric. Oral mucous membranes are slightly dry. NECK: Supple. No JVD. No lymphadenopathy. No thyromegaly. LUNGS: Clear to auscultation. No wheezes or rhonchi. No intercostal retractions. HEART: Irregularly irregular rate and rhythm. No murmur. ABDOMEN: Soft. Bowel sounds are present. No masses. No tenderness. No ascites noted. EXTREMITIES: Bilateral lower extremity pedal edema and ecchymosis to the pretibial area on the right leg with warmth to the touch. NEUROLOGICAL: Patient is awake, alert and oriented x3. Cranial nerves 2 through 12 are grossly intact. Weakness to the bilateral lower extremities. Mild lower back discomfort with straight leg lift. Foot push pull equal. Hand machine design checker equal bilaterally. - Labs CBC & Chem 7: 07/14/19 08:09 07/14/19 08:09 Labs: Abnormal Lab Results - Last 24 Hours (Table) 07/13/19 07/14/19 07/14/19 Range/Units 07:37 08:09 08:09 RBC 3.59 L (3.80-5.40) m/uL MCV 107.5 H (80.0-100.0) fL MCH 35.5 H (25.0-35.0) pg Plt Count 122 L (150-450) k/uL Macrocytosis Marked A Sodium 135 L (137-145) mmol/L Glucose 62 L (74-99) mg/dL Calcium 7.4 L (8.4-10.2) mg/dL AST 38 H (14-36) U/L Total Protein 4.3 L (6.3-8.2) g/dL Albumin 2.0 L (3.5-5.0) g/dL Ktzfj-[id number]-Occsgjpyvag 94.5 L (99.0-242.0) mg/dL Ceruloplasmin 12.9 L (20.0-60.0) mg/dL Microbiology - Last 24 Hours (Table) 07/13/19 09:40 Urine Culture - Preliminary Urine,Voided Group D Enterococcus 07/12/19 12:44 Blood Culture - Preliminary Blood No Growth after 24 hours Assessment and Plan Assessment: Assessment and Plan Plan: 1. Bilateral Lower and upper extremities weakness. Post MRI of the cervical spine and thoracic spine that documented and you mild T1-T2 compression fracture about 10% of the [place] of the vertebrae without evidence of severe spinal stenosis, there is an evidence also of degenerative disc disease of the cervical spine with minimal foraminal stenosis, she was seen by spine surgery it was recommended to continue with current medical management no role for surgical intervention at this point in time, we will continue patient on gabapentin 300 mg orally twice every day, continue patient on tramadol 50 mg every 6 hours as needed for pain control as well. Physical therapy evaluation. 2. Multiple ecchymosis with thrombocytopenia and macrocytosis thought to be due to chronic liver disease. Initial evaluation is negative except for elevated ferritin level and iron saturation, patient would benefit from genetic testing for hemochromatosis as an outpatient including the BI609e and H63D. 3. Lower extremity edema, anorexia and elevated INR ferritin, rule out cirrhosis of the liver. Patient has history of EGD last summer in [place] that is reported as having identified esophageal varices and workup also identified fatty liver. Report will be obtained from the office. Ultrasound negative for DVT. X-ray negative for fracture. Abdominal ultrasound revealed no ascites. Patient is status post lactulose 1 dose. 4. Right-sided pneumonia. Continue his azithromycin and ceftriaxone. 5. Anorexia and gagging on pills. Consult with speech therapy. No obvious signs of aspiration. Patient might benefit from repeat EGD. 6. Paroxysmal atrial fibrillation. Continue Xarelto 20 mg daily, Lopressor decreased to 50 mg in the morning and 25 mg in the evening 7. Urinary tract infection with enterococcus group D. Final results are still pending continue patient on ceftriaxone for now. 8. Major depressive disorder with possible suicidal thoughts. Patient will be taken off amitriptyline and Remeron we will start the patient on Cymbalta 20 mg orally once every day, continue one-on-one sitter psychiatry evaluation. 9. Chronic lower extremity neuropathy. Continue gabapentin but decrease dose of 300 mg twice daily. 10. Macular degeneration. Stable at this time. 11. Restless leg syndrome. Continue Requip 0.5 minute gram of the time. 12. Recurrent history of herpes. Discontinue Valtrex. 13. Chronic pain. Continue tramadol 50 mg every 6 hours. 14. Protein calorie malnutrition due to poor oral intake of the protein. Recommend carnation breakfast 3 times a day dietitian to see the patient and maybe start the patient on Megace as an appetite stimulant. 15. Her daughter Erum and her Magno were called and updated about her current condition. 16. Prognosis is guarded. 17. Physical therapy and professor of social work consultation for discharge planning.
--- NOTE | 2019-07-14 13:09 | US ---
EXAMINATION TYPE: US venous doppler duplex LE BI DATE OF EXAM: 07/14/2019 12:50 PM COMPARISON: US 07/12/2019, CLINICAL HISTORY: B/L calf pain, LE swelling, cold ankles feet. Difficult exam due to small vesse l size SIDE PERFORMED: Bilateral TECHNIQUE: The lower extremity deep venous system is examined utilizing real time linear array sonog tiana with graded compression, doppler sonography and color-flow sonography. VESSELS IMAGED: External Iliac Vein (EIV) Common Femoral Vein Deep Femoral Vein Greater Saphenous Vein * Femoral Vein Popliteal Vein Small Saphenous Vein * Proximal Calf Veins (* superficial vessels) Right Leg: Negative for DVT as visualized Left Leg: Negative for DVT as visualized No popliteal lesion was seen. IMPRESSION: THIS EXAMINATION IS NEGATIVE FOR DVT WITHIN BOTH LEGS.
--- NOTE | 2019-07-14 13:31 | P.CN ---
Psychiatric Consult - . Consult date: 07/14/19 Consult:: 07/14/19 13:23 IDENTIFYING DATA: This patient is a 83-year-old female who currently lives with her and daughter in a house and has 5 kids. HISTORY OF PRESENT ILLNESS: The patient presented to the hospital after recently being treated in June for metabolic encephalopathy secondary to a urinary tract infection. Patient also at that time was treated for a failure to thrive she was not eating. Patient presented once again for refusing to eat and generalized weakness mainly in her lower extremities. Patient was recently taken off her Elavil and Remeron and placed on Cymbalta 20 mg daily. Psychiatry is consulted for "refusing to eat". Patient was seen at the bedside with a sitter at her side and appeared to be appropriate and calm during the interview. She was hard of hearing and a poor historian. She did however state that she is been undergoing "so many tests and feeling overwhelmed". She spoke about her leg and it having a "funny feeling". She denied any depression or anxiety at this time. She states that she sleeps "on and off" she spoke about feeling that she wants to eat however claims that "I smell it and I want to throw up". She also mentioned that she "said something once and thought it would be funny" referring to a suicidal remark to one of the staff members in the hospital. At this time patient denies any suicidal or homical ideations, intent or plan. Patient denies any auditory, visual hallucinations and denies any paranoia or delusions. Patients denies using any recreational drugs or alcohol. She denies any access to guns or weapons in the house. PAST PSYCHIATRIC HISTORY: Patient has a a history of depression. Patient was previously treated with Elavil and Remeron however unsure of the doses and the duration of treatment. Patient is currently on Cymbalta 20 mg daily. Patient denies any previous psychiatric hospitalizations. Patient denies any psychiatric outpatient follow-up. She denies any suicide attempts in the past. PAST MEDICAL HISTORY: History of CVA, A. fib, chronic pain, osteoporosis, obesity. ALLERGIES: as per EMR. CHEMICAL DEPENDENCY HISTORY: as per HPI. FAMILY PSYCHIATRIC/SUBSTANCE USE HISTORY: denies SOCIAL HISTORY: Patient was born and raised in [facility] and states that she completed high school however claims that she did not work afterwards. She claims of 5 kids and currently lives with her and daughter in a house. MENTAL STATUS EXAM: General Appearance: Patient appears to be stated age is alert, pleasant, and directable and attempts to cooperate. Patient appears to have fair hygiene and grooming wearing hospital gown with fair eye contact. Behavior: Patient is calmly lying in bed without any agitated behavior. Superficially cooperative at times. Vague Speech: Patient's speech is fluent and nonpressured. Mood/Affect: Patient reports their mood is "ok", affect is congruent Suicidality/Homicidality: Patient denies having any suicidal or homicidal ideation intent or plan. Perceptions: Patient denies any visual hallucinations and denies any auditory hallucinations Though content/process: Thought process is linear and goal-directed. Minimizes her symptoms, does not endorse delusions. Memory and concentration: AOX3, grossly intact for the purposes of this session. Can spell "WORLD" backwards Judgment and insight: poor IMPRESSIONS: Depressive disorder unspecified PLAN: -At this time patient DOES NOT meet criteria for inpatient psychiatric admission. -Delirium precautions recommended with patient including - avoiding use of narcotics and RADIOLOGY PHYSICIAN ASSISTANT sedatives, limit anticholinergic medications when possible, frequent re-orientation, minimize use of restraints, open window shades during the day and close them at night -Would recommend the following medication changes/additions: Continue with Cymbalta 20 mg daily for mood and added Remeron 7.5 mg daily at bedtime for sleep/appetite. -Can discontinue 1:1 sitter at this time -roll on worker work with family and possibly look at other options for disposition as patient cannot care for herself and is not receiving the appropriate care at home. -Psychiatry will sign off at this point, please contact with any questions.
[2019-07-14] MEDS: MIRTAZAPINE 15 MG TAB PO SCH (21:00)
[2019-07-14] MEDS: METOPROLOL TARTRATE 25 MG TAB PO SCH (21:01)
[2019-07-15] MEDS: GABAPENTIN 300 MG CAP PO SCH ×2 (08:06→20:18)
[2019-07-15] MEDS: FOLIC ACID 1 MG TAB PO SCH (08:06)
[2019-07-15] MEDS: RIVAROXABAN 20 MG TAB PO SCH (08:06)
[2019-07-15] MEDS: AZITHROMYCIN 500 MG TAB PO SCH (08:06)
[2019-07-15] MEDS: THIAMINE 100 MG/ML 2 ML VIAL IVP SCH (08:06)
[2019-07-15] MEDS: DULoxetine HCL 20 MG CAPSULE.DR PO SCH (08:06)
[2019-07-15] MEDS: PYRIDOXINE 100 MG/ML 1 ML VIAL IVP SCH (08:06)
[2019-07-15] MEDS: METOPROLOL TARTRATE 50 MG TAB PO SCH (08:06)
[2019-07-15] MEDS: PANTOPRAZOLE 40 MG/10 ML VIAL IVP SCH ×2 (08:06→20:13)
--- NOTE | 2019-07-15 08:30 | P.PN ---
Subjective Progress Note Date: 07/14/19 Principal diagnosis: Cirrhosis, nausea, history of varices Patient seen lying in bed with no acute complaints. Still reporting poor oral intake. Objective - Vital Signs Vital signs: Vital Signs Temp 97.5 F L 07/14/19 03:50 Pulse 101 H 07/14/19 07:12 Resp 14 07/14/19 07:12 BP 95/66 07/14/19 07:12 Pulse Ox 93 L 07/14/19 03:50 Intake & Output 07/13/19 07/14/19 07/14/19 18:59 06:59 18:59 Intake Total 137 450 150 Balance 137 450 150 Intake: Intake, IV Titration 50 Amount cefTRIAXone 1 gm In 50 Sodium Chloride 0.9% 50 ml @ 100 mls/hr IVPB Q24H [facility] Rx#:[id number] Oral 137 450 100 Other: Voiding Method Bedside Commode Bedside Commode Bedside Commode Diaper Diaper # Voids 1 1 - Exam On physical examination, patient appears comfortable in no apparent distress. HEAD: Normocephalic, atraumatic. EYES: No scleral icterus. No conjunctival injection. MOUTH: No lesions, tongue midline. NECK: Trachea midline, no gross abnormalities. ABDOMEN: Soft, obese, nontender. No guarding or rigidity. EXTREMITIES: Bilateral lower extremity edema. SKIN: No rashes, no jaundice. NEUROLOGIC: Alert and oriented to person. - Labs CBC & Chem 7: 07/14/19 08:09 07/14/19 08:09 Labs: Abnormal Lab Results - Last 24 Hours (Table) 07/14/19 07/14/19 Range/Units 08:09 08:09 RBC 3.59 L (3.80-5.40) m/uL MCV 107.5 H (80.0-100.0) fL MCH 35.5 H (25.0-35.0) pg Plt Count 122 L (150-450) k/uL Macrocytosis Marked A Sodium 135 L (137-145) mmol/L Glucose 62 L (74-99) mg/dL Calcium 7.4 L (8.4-10.2) mg/dL AST 38 H (14-36) U/L Total Protein 4.3 L (6.3-8.2) g/dL Albumin 2.0 L (3.5-5.0) g/dL Microbiology - Last 24 Hours (Table) 07/13/19 09:40 Urine Culture - Preliminary Urine,Voided Group D Enterococcus 07/12/19 12:44 Blood Culture - Preliminary Blood No Growth after 24 hours Assessment and Plan (1) History of cirrhosis of liver Narrative/Plan: 83-year-old female with multiple medical comorbidities including a reported history of liver disease and prior diagnosis of esophageal varices in the summer of 2018 who presents to the hospital for constellation of symptoms including weakness and lower extremity pain and swelling. Patient reports previously being told of a fatty liver disease but has had elevated liver enzymes in the past. She was seen in [place] for GI bleed in May 2019 with report obtained in findings of esophagitis with biopsies taken and 3 small columns of varices. Current Visit: Yes Status: Acute Code(s): Z87.19 - PERSONAL HISTORY OF OTHER DISEASES OF THE DIGESTIVE SYSTEM SNOMED Code(s): 749065174 (2) Elevated liver enzymes Current Visit: Yes Status: Acute Code(s): R74.8 - ABNORMAL LEVELS OF OTHER SERUM ENZYMES SNOMED Code(s): 117723226 (3) History of esophageal varices Current Visit: Yes Status: Acute Code(s): Z87.19 - PERSONAL HISTORY OF OTHER DISEASES OF THE DIGESTIVE SYSTEM SNOMED Code(s): 67189348990897678 Plan: Supportive care Okay for sodium restricted diet as tolerated Pepcid change to Protonix twice daily in the setting of esophagitis on EGD from 05/2019 Report of EGD and imaging from May 2019 revealed Full liver serologies ordered, and pending Iron studies did show elevated iron and ferritin, patient will benefit from [place] testing for hemochromatosis (HFE gene testing in the outpatient setting) Continue to monitor CBC, BMP, liver enzymes Ultrasound abdomen ordered for evaluation of liver, without pocket of ascites noted Thank you for allowing us to participate in the care of the patient we will continue to follow
--- NOTE | 2019-07-15 11:00 | P.PN ---
Subjective Progress Note Date: 07/15/19 This is an 83-year-old female patient of Dr. Dr. Guevara with past medical history of CVA, paroxysmal atrial fibrillation on Xarelto, chronic pain syndrome, lumbar compression fracture and osteoporosis, restless leg syndrome, history of morbid obesity status post bariatric surgery. Patient was recently hospitalized in June and was treated for metabolic encephalopathy secondary to UTI and sepsis with generalized weakness and fatigue. Patient was also identified as failure to thrive. She was not eating well at that time. Patient was stabilized and discharged to home. Patient currently lives at home with her but her daughter has been staying with them for the past 6 weeks as the patient has not been doing well. Patient has not been eating since prior to her last admission. She has generalized weakness to the lower extremities and presents with lower extremity edema and erythema ecchymosis to the right lower extremity most likely secondary to a fall that occurred prior to her last admission. Patient also has history of having a GI workup in [place] which time she underwent EGD was found to have esophageal varices and was also told she had a fatty liver. Patient denies ever having daily alcohol intake. She does have a sister that from cirrhosis of the liver from hepatitis C. Recent outpatient lab work revealed iron 76, TIBC 112, iron saturation 67.86, ferritin 1073, vitamin B1 31, vitamin B6 less than 2 vitamin B 12 1488, vitamin D 25 134.4. Patient had outpatient CAT scan of the abdomen and pelvis done recently and this report will be obtained from the office. Patient presented to [facility] emergency center for evaluation. WBC 6.8, Hemoglobin 14.7 and platelet count 123 INR 1.9, total bilirubin 1, AST 44, ALT 29 and alkaline phosphatase 59, TSH 4.480. KUB reveals nonobstructive bowel gas pattern. Ultrasound of the right lower extremity negative for DVT. Right Tib-fib x-ray shows no acute fracture. Chest x-ray reveals increased density right suprahilar region may reflect developing infiltrate. EKG atrial fibrillation with rate controlled. Patient admitted to the MedSurg floor and started on azithromycin and ceftriaxone for pneumonia, start vitamin B6 and thiamine, consult with GI for cirrhosis evaluation and neur ology for bilateral lower extremity weakness. X-rays of the lumbar and thoracic spine. 07/12: Thoracic spine x-ray showed mild decompression of deformities of T7-T8, T10 that are new from 2017. Diffuse osseous demineralization, exaggerated thoracic kyphosis, mild degenerative change and old compression deformity of T11. Lumbar x-ray revealed mild compression deformity T12 is new from 2017. Old compression deformities T 11 post kyphoplasty and L5 that appears chronic. Diffuse osseous demineralization and moderate degenerative disc disease. Patient has been seen by Dr. Dodge with recommendations for MRI of the cervical and thoracic spine to rule out spinal stenosis and to assess for compression fractures. Patient has been seen by GI and patient cleared for low sodium diet as tolerated, Pepcid twice daily and full liver serologies have been ordered. Patient may benefit from gene testing for hemochromatosis in the outpatient setting. Ammonia level less than 9, total protein PEP 4, repeat INR 1.5. Urinalysis was turbid with leukoesterase large, WBCs greater than 182, bacteria moderate, yeast budding many. Patient was started on Rocephin yesterday. Urine culture in progress. Acute hepatitis panel was negative. Dr. Green has ordered 1 dose of lactulose. Ultrasound of the abdomen revealed no ultrasound evidence of ascites. Patient seen today on the MedSur floor. She has taken some pills orally but is gagging now. She states this occurs most often after she takes pills. She denies any abdominal pain. She still states she is not eating anything. She does not harjit ear to be aspirating but consult with speech therapy will be requested. Patient may benefit by having EGD to further evaluate. Blood pressure was on the low side this morning and Lopressor decreased to 50 mg in the morning and continue 25 mg at bedtime. 07/13: Patient is lying down in bed in no apparent distress she continues to be negative not participating in any activities she is not eating and if her food at this point in time, we'll discontinue amitriptyline, discontinue Remeron, patient was seen by multiple specialties including neurology, spine surgery, and the gastroenterology, patient underwent MRI of the cervical and thoracic spine that showed degenerative disc disease of the cervical spine without significant spinal stenosis despite the weakness in upper extremities and lower extremities that is both proximal and distal and also was found to have a mild compression fracture of T1 and T2 about 10% of the vertebrae without evidence of any retropulsion, no evidence of any surgical intervention that would benefit this patient at this point in time, patient will be taken off her vitamin D again as her level was extremely elevated with 34 just a few weeks back, we will continue with folic acid 1 mg once every day continue vitamin supplements, physical therapy evaluation, social media marketing manager consultation for discharge planning. 07/14: Patient is lying down in bed , continues to be resistive for care and finally agreed on DEMETRICE wraps, also not eating much, was seen by Psychiatry and recommended to continue with cymbalta and added Remeron again at 7.5 mg . she denies any chest pain or shortness of breath, very poor appetite, no nausea, food does not taste good according to her, very weak and she continues to decline, social media marketing manager and PT consult for discharge planning. Objective - Vital Signs Vital signs: Vital Signs Temp 97.2 F L 07/15/19 07:00 Pulse 92 07/15/19 07:00 Resp 16 07/15/19 08:06 BP 100/59 07/15/19 07:00 Pulse Ox 97 07/15/19 07:00 Intake & Output 07/14/19 07/15/19 07/15/19 18:59 06:59 18:59 Intake Total 150 100 Output Total 300 Balance -150 100 Intake: Intake, IV Titration 50 Amount cefTRIAXone 1 gm In 50 Sodium Chloride 0.9% 50 ml @ 100 mls/hr IVPB Q24H [facility] Rx#:[id number] Oral 100 100 Output: Urine 300 Other: Voiding Method Bedside Commode Bedside Commode Bedside Commode Diaper Diaper Diaper # Voids 1 - Exam Review of Systems Constitutional: Reports anorexia, Reports chronic pain, Reports fatigue, Reports lethargy, Reports malaise, Reports poor appetite, Reports weakness, Denies chil ls, Denies chronic headaches, Denies fever Eyes: denies blurred vision, denies pain Ears, nose, mouth and throat: Denies dysphagia, Denies headache, Denies nasal congestion, Denies nasal discharge, Denies sore throat, Denies vertigo Cardiovascular: Reports edema, Reports leg edema, Denies chest pain, Denies decreased exercise tolerance, Denies dyspnea on exertion, Denies lightheadedness, Denies shortness of breath, Denies syncope Respiratory: Denies cough, Denies cough with sputum, Denies dyspnea, Denies excessive sputum, Denies hemoptysis, Denies home oxygen, Denies respiratory infections, Denies wheezing Gastrointestinal: Reports loss of appetite, Denies abdominal pain, Denies BRBPR, Denies diarrhea, Denies nausea, Denies vomiting Genitourinary: Denies dysuria, Denies hematuria, Denies urgency, Denies urinary frequency Musculoskeletal: Reports gait dysfunction, Reports muscle weakness, Denies frequent falls, Denies myalgias Integumentary: Reports color changes, Reports darkening of skin, Reports wounds, Denies pruritus, Denies rash Neurological: Reports gait dysfunction, Denies change in mentation, Denies change in speech, Denies numbness, Denies weakness Psychiatric: Denies anxiety, Denies depression Endocrine: Denies fatigue, Denies weight change Physical examination Gen: This is an 83-year-old female. Patient is resting in the ER stretcher and appears to be comfortable and in no acute distress. Daughter is at bedside. HEENT: Head is atraumatic, normocephalic. Pupils equal, round. Sclerae is anicteric. Oral mucous membranes are slightly dry. NECK: Supple. No JVD. No lymphadenopathy. No thyromegaly. LUNGS: Clear to auscultation. No wheezes or rhonchi. No intercostal retractions. HEART: Irregularly irregular rate and rhythm. No murmur. ABDOMEN: Soft. Bowel sounds are present. No masses. No tenderness. No ascites noted. EXTREMITIES: Bilateral lower extremity pedal edema and ecchymosis to the pretibial area on the right leg with warmth to the touch. NEUROLOGICAL: Patient is awake, alert and oriented x3. Cranial nerves 2 through 12 are grossly intact. Weakness to the bilateral lower extremities. Mild lower back discomfort with straight leg lift. Foot push pull equal. Hand order management specialist equal bilaterally. - Labs CBC & Chem 7: 07/14/19 08:09 07/14/19 08:09 Labs: Microbiology - Last 24 Hours (Table) 07/12/19 12:44 Blood Culture - Preliminary Blood No Growth after 48 hours 07/13/19 09:40 Urine Culture - Preliminary Urine,Voided Group D Enterococcus Assessment and Plan Assessment: Assessment and Plan Plan: 1. Bilateral Lower and upper extremities weakness. Post MRI of the cervical spine and thoracic spine that documented and you mild T1-T2 compression fracture about 10% of the [place] of the vertebrae without evidence of severe spinal stenosis, there is an evidence also of degenerative disc disease of the cervical spine with minimal foraminal stenosis, she was seen by spine surgery it was recommended to continue with current medical management no role for surgical intervention at this point in time, we will continue patient on gabapentin 300 mg orally twice every day, continue patient on tramadol 50 mg every 6 hours as needed for pain control as well. Physical therapy evaluation. 2. Multiple ecchymosis with thrombocytopenia and macrocytosis thought to be due to chronic liver disease. Initial evaluation is negative except for elevated ferritin level and iron saturation, patient would benefit from genetic testing for hemochromatosis as an outpatient including the [id number] and [id number]. 3. Lower extremity edema, anorexia and elevated INR ferritin, rule out cirrhosis of the liver. Patient has history of EGD last summer in [place] that is reported as having identified esophageal varices and workup also identified fatty liver. Report will be obtained from the office. Ultrasound negative for DVT. X-ray negative for fracture. Abdominal ultrasound revealed no ascites. Patient is status post lactulose 1 dose. 4. Right-sided pneumonia. Continue his azithromycin and ceftriaxone. 5. Anorexia and gagging on pills. Consult with speech therapy. No obvious signs of aspiration. Patient might benefit from repeat EGD. 6. Paroxysmal atrial fibrillation. Continue Xarelto 20 mg daily, Lopressor decreased to 50 mg in the morning and 25 mg in the evening 7. Urinary tract infection with enterococcus group D. Final results are still pending continue patient on ceftriaxone for now. 8. Major depressive disorder with possible suicidal thoughts. Patient will be taken off amitriptyline and Remeron we will start the patient on Cymbalta 20 mg orally once every day, continue one-on-one sitter psychiatry evaluation. 9. Chronic lower extremity neuropathy. Continue gabapentin but decrease dose of 300 mg twice daily. 10. Macular degeneration. Stable at this time. 11. Restless leg syndrome. Continue Requip 0.5 minute gram of the time. 12. Recurrent history of herpes. Discontinue Valtrex. 13. Chronic pain. Continue tramadol 50 mg every 6 hours. 14. Protein calorie malnutrition due to poor oral intake of the protein. Re commend carnation breakfast 3 times a day dietitian to see the patient and maybe start the patient on Megace as an appetite stimulant. 15. Her daughter Erum and her Magno were called and updated about her current condition. 16. Prognosis is guarded. 17. Physical therapy and social media marketing manager consultation for discharge planning.
--- NOTE | 2019-07-15 14:04 | P.PN ---
<Mike Pack - Last Filed: 07/15/19 14:03> Progress Note - Text Progress Note Date: 07/15/19 Orthopedic spine: History of present illness: Patient is an pleasant 83-year-old female who is seen and examined at bedside for follow-up evaluation after consultation was placed for evaluation of previous diagnosis multiple compression fracture deformities at her thoracic and lumbar spines. Patient has a medical history which includes CVA, proximal atrial fibrillation currently on Xarelto, history of thoracic and lumbar compression fractures, and history of morbid obesity status post bariatric surgery. Patient was recently hospitalized in June 2019 and treated for metabolic encephalopathy secondary to urinary tract infection and sepsis with generalized weakness and fatigue. Patient currently has a urinary tract infection. Urine cultures were positive for group D enterococcus. Patient is currently sitting in a bedside chair. She was able to ambulate to the restroom this morning with some assistance. She states she is voiding without difficulty. Patient is much more awake, alert, and oriented today. She does admit she continues to refrain from eating as she states the food is not that good. She did try shake this morning but states she did not like the taste. Her symptoms remain the same today as compared to yesterday in regards to her thoracic spine and lumbar spine. The patient states she has not had any changes in regards to her thoracic spine or lumbar spine prior to or since her admission. She states she has some pain throughout her thoracic and lumbar spine which is chronic for her. She is not currently experiencing any lower extremity radiculopathy. Her lower extremity strength is stronger in which she is able to ambulate to the restroom this morning. She does continue to have significant swelling in the bilateral lower extremities and feels her legs are heavy due to this. Her lower extremities are currently both wrapped in Darin wrap.She does have difficulty with lifting her lower extremities. She has significant swelling in the bilateral lower extremities states her legs feel heavy when trying to lift them. She has not had any change in her upper extremities. She is able to move her upper extremities through active range of motion without significant difficulty while lying in bed. She denies any upper extremity radiculopathy. Patient states she does have a history of surgical intervention at her spine. She does have a history of T11 kyphoplasty. Her bilateral lower extremity calf pain which she was experiencing yesterday has improved. Venous ultrasound Doppler bilateral lower extremity was performed yesterday which was negative for DVT in the bilateral lower extremities. He continues to experience significant coldness of the feet bilaterally. She does have pitting edema in the bilateral lower extremities. She as previously seen and examined by neurology who obtained the cervical and thoracic MRI imaging to rule out spinal stenosis due to the patient's upper extremity and lower extremity weakness along with a positive Babinski sign. Patient was originally admitted with dehydration and pneumonia. Patient has a history of esophageal varices with imaging supporting cirrhotic appearing liver and elevated liver enzymes. Patient has been seen by gastroenterology. Patient states at the bedside she feels her thoracic pain, lumbar spine pain, and generalized weakness is adequately controlled. She states at this time she would not proceed forward with any surgical intervention in regards to her spine even if there were indications for surgical intervention. She does not wish to have any further evaluation regards to her spine at this time. Physical exam: Patient is awake and alert and answering questions appropriately Patient is sitting comfortably in a bedside chair Vital signs stable Adequate chest excursion with deep inspiration and expiration Examination of thoracic and lumbar spine reveals skin is intact with no abrasions, lacerations, or bruises; no erythema, purulence or signs of infection No significant pain with palpation over the thoracic or lumbar spines I do not visualize the well-healed incision site from her previous T11 kyphoplasty Dorsiflexion, plantarflexion, and extensor hallucis longus positive sustained bilaterally Dorsiflexion and plantar flexion strength 5/5 Evidence of significant edema bilateral lower extremity; bilateral lower extremities are currently wrapped in Darin wrap dressings Patient has difficulty lifting legs off the bed independently No evidence of lower extremity hyperreflexia Straight leg test negative bilateral lower extremities Negative Lasegue's test bilaterally Calves are warm to palpation No significant pain with palpation of the calves bilaterally today Patient is able to sense palpation to the bilateral feet but feet and ankles are significantly cold during palpation Patient is able to perform some active range of motion of bilateral upper extremities independently without significant difficulty Motor strength in the upper extremity is 4/5 including the triceps bilaterally Pertinent studies: Venous ultrasound Doppler bilateral lower extremities taken on 07/14/2019: Imaging negative for DVT of the bilateral lower extremities MRI of the cervical and thoracic spines taken on 07/13/2019: T1 mild chronic compression fracture deformity with approximately 10% height loss without evidence of bone marrow edema; T2 chronic compression fracture deformity with approximately 25% height loss without evidence of bone marrow edema; T3 and T7 hemangiomas and likely T4; T11 evidence of kyphoplasty of compression fracture deformity with approximately 50% height loss of superior endplate; no evidence of significant spinal canal stenosis throughout the cervical or thoracic spine; no evidence of new compression fracture deformity; exaggerated thoracic kyphosis X-rays of the thoracic and lumbar spines taken on 07/12/2019: Chronic L5 compression fracture unchanged since imaging from 2013; L5-S1 severe degenerative disc disease; T2 compression fracture deformity of approximately 25% height loss at the superior endplate with evidence of sclerosis of the superior endplate; T11 evidence of kyphoplasty of compression fracture deformity with approximately 50% height loss; reviewing of thoracic x-ray imaging shows there may be evidence of mild compression fracture deformities at T7, T8, and T10 but are better visualized on thoracic MRI imaging and there does not appear to be compression fracture deformities at these levels; visualized fractures at T1 seen on MRI imaging is difficult to visualize on x-ray imaging; T10-11 anterior degenerative disc disease with anterior osteophytic spurring Assessment: Chronic compression fracture deformities at T1, T2, T11, and L5 History of T11 kyphoplasty Hemangioma at T3 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 and likely T4 L5-S1 severe degenerative disc disease T10-11 anterior degenerative disc disease with anterior osteophytic spurring Diffuse demineralization of the thoracic and lumbar spines an x-ray imaging Exaggerated thoracic kyphosis Positive Babinski sign Bilateral calf pain; ultrasound Doppler negative for DVT bilateral lower extremities Bilateral lower extremity edema Coldness to palpation over the bilateral feet and ankles Upper extremity weakness Confusion and not oriented to place Current urinary tract infection Recently treated for metabolic encephalopathy due to urinary tract infection and sepsis History of CVA Proximal atrial fibrillation currently on Xarelto History of morbid obesity status post bariatric surgery Anorexia; patient has not consumed much food over the past 2 weeks Dehydration Pneumonia Esophageal varices Elevated liver enzymes Plan: 1. After physical examination of the patient, further discussion with the patient about her symptoms, and reviewing of imaging, we're not currently complaining for further imaging or acute care regards to the patient's thoracic or lumbar spines. Patient states today she feels her symptoms are adequately controlled in regards to her thoracic pain, lumbar pain, and generalized weakness in the lower extremities. She does have multiple chronic compression fracture deformities at T1, T2, T11, and L5 with a history of T11 kyphoplasty. She is not experiencing any significant change in regards to her thoracic or lumbar spines. She does admit to chronic pain at her thoracic and lumbar spines. She is not currently experiencing any upper extremity or lower extremity radiculopathy. She has been seen and examined by neurology. After reviewing of her MRI imaging, it does not appear neurology is planning for more imaging at this time. MRI imaging of the cervical and thoracic spines did not show evidence of any significant herniated nucleus pulposus or spinal canal stenosis. Patient does have some weakness with her triceps bilaterally. She feels her upper extremity symptoms have remained the same has not been experiencing any change. She does have significant swelling in the bilateral lower extremities and has difficulty lifting her legs and she states they feel heavy. She does not admit to specific weakness but states she generally feels weak overall. He has had some improvement though and was able to ambulate to the restroom this morning. Patient's bilateral calf pain has had some improvement today. Ultrasound Doppler bilateral lower extremities was ordered yesterday, performed, and was negative for DVT of the bilateral lower extremities At this time, I do not feel that the patient's symptoms are specifically stemming in regards to her thoracic or lumbar spines. I did does not appear that any surgical intervention specifically in regards to her cervical, thoracic, ot lumbar spine would provide any significant improvement of the generalized weakness she is experiencing. Patient states she does not wish to undergo any further testing in regards to her spine. She states if there were indications for surgical intervention she does not want to proceed forward with any sort of surgery at this time. From an orthopedic spine standpoint, patient is clear for discharge. She may plan to follow-up with Mike Pack PA-C or Dr. Wild Fitzgerald at [facility] as needed basis. 2. Patient will continue to be seen and examined by multiple other medical providers for her other multiple medical diagnoses. Patient has declined to eat much food over the past 2 weeks. She was also recently treated for urinary tract infection and sepsis with metabolic encephalopathy. Patient is currently being treated for pneumonia and has a urinary tract infection. Urine culture results were positive for group D enterococcus. She has also been seen and examined by gastroenterology in regards to elevated liver enzymes and esophageal varices with results indicative of cirrhosis of the liver. 3. Patient may continue with Darin wraps over the bilateral lower extremities due to her significant lower extremity edema. She is encouraged to keep her lower extremities elevated bilaterally. <Lanie Fitzgerald - Last Filed: 07/17/19 10:10> Progress Note - Text The patient is seen. The chart is reviewed as well as images. I am in agreement with the above dictation. She is continuing her medical management. She does not seem to have acute spinal change or neurologic impingement to call for spinal surgery Fitzgerald at this point. She should continue her management for her chronic back pain as per medicine.
--- NOTE | 2019-07-15 19:20 | P.PN ---
Subjective Progress Note Date: 07/15/19 Principal diagnosis: Cirrhosis, nausea, history of varices Patient seen lying in bed with no acute complaints. No abdominal pain reported she is tolerating her diet, however oral intake remains poor. Objective - Vital Signs Vital signs: Vital Signs Temp 97.2 F L 07/15/19 07:00 Pulse 92 07/15/19 07:00 Resp 16 07/15/19 08:06 BP 100/59 07/15/19 07:00 Pulse Ox 97 07/15/19 07:00 Intake & Output 07/14/19 07/15/19 07/15/19 18:59 06:59 18:59 Intake Total 150 100 Output Total 300 Balance -150 100 Intake: Intake, IV Titration 50 Amount cefTRIAXone 1 gm In 50 Sodium Chloride 0.9% 50 ml @ 100 mls/hr IVPB Q24H [facility] Rx#:[id number] Oral 100 100 Output: Urine 300 Other: Voiding Method Bedside Commode Bedside Commode Bedside Commode Diaper Diaper Diaper # Voids 1 - Exam On physical examination, patient appears comfortable in no apparent distress. HEAD: Normocephalic, atraumatic. EYES: No scleral icterus. No conjunctival injection. MOUTH: No lesions, tongue midline. NECK: Trachea midline, no gross abnormalities. ABDOMEN: Soft, obese, nontender. No guarding or rigidity. EXTREMITIES: Bilateral lower extremity edema. SKIN: No rashes, no jaundice. NEUROLOGIC: Alert and oriented to person. - Labs CBC & Chem 7: 07/14/19 08:09 07/14/19 08:09 Labs: Microbiology - Last 24 Hours (Table) 07/12/19 12:44 Blood Culture - Preliminary Blood No Growth after 48 hours 07/13/19 09:40 Urine Culture - Preliminary Urine,Voided Group D Enterococcus Assessment and Plan (1) History of cirrhosis of liver Narrative/Plan: 83-year-old female with multiple medical comorbidities including a reported history of liver disease and prior diagnosis of esophageal varices in the summer of 2018 who presents to the hospital for constellation of symptoms including weakness and lower extremity pain and swelling. Patient reports previously being told of a fatty liver disease but has had elevated liver enzymes in the past. She was seen in [place] for GI bleed in May 2019 with report obtained in findings of esophagitis with biopsies taken and 3 small columns of varices. Serologic workup in process, with acute viral hepatitis panel negative. She does have depressed alpha-1 antitrypsin, depressed ceruloplasmin and elevated iron study and would benefit from further testing in the outpatient setting. Current Visit: Yes Status: Acute Code(s): Z87.19 - PERSONAL HISTORY OF OTHER DISEASES OF THE DIGESTIVE SYSTEM SNOMED Code(s): 922354158 (2) Elevated liver enzymes Current Visit: Yes Status: Acute Code(s): R74.8 - ABNORMAL LEVELS OF OTHER SERUM ENZYMES SNOMED Code(s): 197706187 (3) History of esophageal varices Current Visit: Yes Status: Acute Code(s): Z87.19 - PERSONAL HISTORY OF OTHER DISEASES OF THE DIGESTIVE SYSTEM SNOMED Code(s): 52733033819762029 Plan: Supportive care Okay for sodium restricted diet as tolerated Protonix twice daily in the setting of esophagitis on EGD from 05/2019 Report of EGD and imaging from May 2019 revealed Full liver serologies ordered, and findings of elevated iron, with depressed ceruloplasmin and alpha-1 antitrypsin, and follow-up in the outpatient setting for further testing Iron studies did show elevated iron and ferritin, patient will benefit from [place] testing for hemochromatosis (HFE gene testing in the outpatient setting) Continue to monitor CBC, BMP, liver enzymes Ultrasound abdomen ordered for evaluation of liver, without pocket of ascites noted Thank you for allowing us to participate in the care of the patient we will continue to follow
[2019-07-15] MEDS: MIRTAZAPINE 15 MG TAB PO SCH (20:18)
[2019-07-15] MEDS: METOPROLOL TARTRATE 25 MG TAB PO SCH (20:18)
[2019-07-16] MEDS: METOPROLOL TARTRATE 50 MG TAB PO SCH (07:13)
[2019-07-16] MEDS: AZITHROMYCIN 500 MG TAB PO SCH (07:21)
[2019-07-16] MEDS: RIVAROXABAN 20 MG TAB PO SCH (07:21)
[2019-07-16] MEDS: PANTOPRAZOLE 40 MG TABLET PO SCH ×2 (07:21→16:54)
[2019-07-16] MEDS: FOLIC ACID 1 MG TAB PO SCH (07:22)
[2019-07-16] MEDS: GABAPENTIN 300 MG CAP PO SCH ×2 (07:22→20:50)
[2019-07-16] MEDS: DULoxetine HCL 20 MG CAPSULE.DR PO SCH (07:22)
[2019-07-16] MEDS: PYRIDOXINE 100 MG/ML 1 ML VIAL IVP SCH (07:23)
[2019-07-16] MEDS: THIAMINE 100 MG/ML 2 ML VIAL IVP SCH (07:23)
--- NOTE | 2019-07-16 11:58 | P.PN ---
Subjective Progress Note Date: 07/16/19 This is an 83-year-old female patient of Dr. Dr. Guevara with past medical history of CVA, paroxysmal atrial fibrillation on Xarelto, chronic pain syndrome, lumbar compression fracture and osteoporosis, restless leg syndrome, history of morbid obesity status post bariatric surgery. Patient was recently hospitalized in June and was treated for metabolic encephalopathy secondary to UTI and sepsis with generalized weakness and fatigue. Patient was also identified as failure to thrive. She was not eating well at that time. Patient was stabilized and discharged to home. Patient currently lives at home with her but her daughter has been staying with them for the past 6 weeks as the patient has not been doing well. Patient has not been eating since prior to her last admission. She has generalized weakness to the lower extremities and presents with lower extremity edema and erythema ecchymosis to the right lower extremity most likely secondary to a fall that occurred prior to her last admission. Patient also has history of having a GI workup in [place] which time she underwent EGD was found to have esophageal varices and was also told she had a fatty liver. Patient denies ever having daily alcohol intake. She does have a sister that from cirrhosis of the liver from hepatitis C. Recent outpatient lab work revealed iron 76, TIBC 112, iron saturation 67.86, ferritin 1073, vitamin B1 31, vitamin B6 less than 2 vitamin B 12 1488, vitamin D 25 134.4. Patient had outpatient CAT scan of the abdomen and pelvis done recently and this report will be obtained from the office. Patient presented to [facility] emergency center for evaluation. WBC 6.8, Hemoglobin 14.7 and platelet count 123 INR 1.9, total bilirubin 1, AST 44, ALT 29 and alkaline phosphatase 59, TSH 4.480. KUB reveals nonobstructive bowel gas pattern. Ultrasound of the right lower extremity negative for DVT. Right Tib-fib x-ray shows no acute fracture. Chest x-ray reveals increased density right suprahilar region may reflect developing infiltrate. EKG atrial fibrillation with rate controlled. Patient admitted to the MedSurg floor and started on azithromycin and ceftriaxone for pneumonia, start vitamin B6 and thiamine, consult with GI for cirrhosis evaluation and neur ology for bilateral lower extremity weakness. X-rays of the lumbar and thoracic spine. 07/12: Thoracic spine x-ray showed mild decompression of deformities of T7-T8, T10 that are new from 2017. Diffuse osseous demineralization, exaggerated thoracic kyphosis, mild degenerative change and old compression deformity of T11. Lumbar x-ray revealed mild compression deformity T12 is new from 2017. Old compression deformities T 11 post kyphoplasty and L5 that appears chronic. Diffuse osseous demineralization and moderate degenerative disc disease. Patient has been seen by Dr. Dodge with recommendations for MRI of the cervical and thoracic spine to rule out spinal stenosis and to assess for compression fractures. Patient has been seen by GI and patient cleared for low sodium diet as tolerated, Pepcid twice daily and full liver serologies have been ordered. Patient may benefit from gene testing for hemochromatosis in the outpatient setting. Ammonia level less than 9, total protein PEP 4, repeat INR 1.5. Urinalysis was turbid with leukoesterase large, WBCs greater than 182, bacteria moderate, yeast budding many. Patient was started on Rocephin yesterday. Urine culture in progress. Acute hepatitis panel was negative. Dr. Green has ordered 1 dose of lactulose. Ultrasound of the abdomen revealed no ultrasound evidence of ascites. Patient seen today on the MedSur floor. She has taken some pills orally but is gagging now. She states this occurs most often after she takes pills. She denies any abdominal pain. She still states she is not eating anything. She does not harjit ear to be aspirating but consult with speech therapy will be requested. Patient may benefit by having EGD to further evaluate. Blood pressure was on the low side this morning and Lopressor decreased to 50 mg in the morning and continue 25 mg at bedtime. 07/13: Patient is lying down in bed in no apparent distress she continues to be negative not participating in any activities she is not eating and if her food at this point in time, we'll discontinue amitriptyline, discontinue Remeron, patient was seen by multiple specialties including neurology, spine surgery, and the gastroenterology, patient underwent MRI of the cervical and thoracic spine that showed degenerative disc disease of the cervical spine without significant spinal stenosis despite the weakness in upper extremities and lower extremities that is both proximal and distal and also was found to have a mild compression fracture of T1 and T2 about 10% of the vertebrae without evidence of any retropulsion, no evidence of any surgical intervention that would benefit this patient at this point in time, patient will be taken off her vitamin D again as her level was extremely elevated with 34 just a few weeks back, we will continue with folic acid 1 mg once every day continue vitamin supplements, physical therapy evaluation, social work faculty member consultation for discharge planning. 07/14: Patient is lying down in bed , continues to be resistive for care and finally agreed on DEMETRICE wraps, also not eating much, was seen by Psychiatry and recommended to continue with cymbalta and added Remeron again at 7.5 mg . she denies any chest pain or shortness of breath, very poor appetite, no nausea, food does not taste good according to her, very weak and she continues to decline, social work faculty member and PT consult for discharge planning. 07/15: Patient continues to refuse CPE. She is eating less than 25% for all her meals. Dietitian is following and insurance in place as well. Physical therapy is recommended subacute rehab and social work is following for discharge planning. Plan is for possible [place] tomorrow. Patient is afebrile, heart rate 90, blood pressure 93/61, pulse ox 98% on room air. Patient is followed by GI. She does have evidence of depressed alpha-1 antitrypsin, ceruloplasmin and elevated iron study and could benefit from further testing in the outpatient setting. We will plan outpatient follow-up with GI after discharge. Patient will also be scheduled for hemochromatosis gene testing in the outpatient [facility] as well. Urine culture is positive for VRE and ceftriaxone will be discontinued transitioned to Zyvox oral. Patient's family will be updated after rounds today. Objective - Vital Signs Vital signs: Vital Signs Temp 97.5 F L 07/16/19 07:00 Pulse 90 07/16/19 07:23 Resp 18 07/16/19 07:23 BP 93/61 07/16/19 07:00 Pulse Ox 98 07/16/19 07:00 Intake & Output 07/15/19 07/16/19 07/16/19 18:59 06:59 18:59 Weight 74.843 kg Other: Voiding Method Bedside Commode Bedside Commode Bedside Commode Diaper Diaper Diaper Incontinent Incontinent # Voids 1 1 - Exam Review of Systems Constitutional: Reports anorexia, Reports chronic pain, Reports fatigue, Reports lethargy, Reports malaise, Reports poor appetite, Reports weakness, Denies chills, Denies chronic headaches, Denies fever Eyes: denies blurred vision, denies pain Ears, nose, mouth and throat: Denies dysphagia, Denies headache, Denies nasal congestion, Denies nasal discharge, Denies sore throat, Denies vertigo Cardiovascular: Reports edema, Reports leg edema, Denies chest pain, Denies decreased exercise tolerance, Denies dyspnea on exertion, Denies lightheadedness, Denies shortness of breath, Denies syncope Respiratory: Denies cough, Denies cough with sputum, Denies dyspnea, Denies excessive sputum, Denies hemoptysis, Denies home oxygen, Denies respiratory infections, Denies wheezing Gastrointestinal: Reports loss of appetite, Denies abdominal pain, Denies BRBPR, Denies diarrhea, Denies nausea, Denies vomiting Genitourinary: Denies dysuria, Denies hematuria, Denies urgency, Denies urinary frequency Musculoskeletal: Reports gait dysfunction, Reports muscle weakness, Denies frequent falls, Denies myalgias Integumentary: Reports color changes, Reports darkening of skin, Reports wounds, Denies pruritus, Denies rash Neurological: Reports gait dysfunction, Denies change in mentation, Denies change in speech, Denies numbness, Denies weakness Psychiatric: Denies anxiety, Denies depression Endocrine: Reports fatigue, reports weight change Physical examination Gen: This is an 83-year-old female. Patient is resting in bed and appears to be comfortable and in no acute distress. HEENT: Head is atraumatic, normocephalic. Pupils equal, round. Sclerae is anicteric. Oral mucous membranes are slightly dry. NECK: Supple. No JVD. No lymphadenopathy. No thyromegaly. LUNGS: Clear to auscultation. No wheezes or rhonchi. No intercostal retractions. HEART: Irregularly irregular rate and rhythm. No murmur. ABDOMEN: Soft. Bowel sounds are present. No masses. No tenderness. No ascites noted. EXTREMITIES: Mild Bilateral lower extremity pedal edema and ecchymosis to the pretibial area on the right leg with warmth to the touch. NEUROLOGICAL: Patient is awake, alert and oriented x2. Cranial nerves 2 through 12 are grossly intact. Weakness to the bilateral lower extremities. - Labs CBC & Chem 7: 07/14/19 08:09 07/14/19 08:09 Labs: Microbiology - Last 24 Hours (Table) 07/13/19 09:40 Urine Culture - Final Urine,Voided Enterococcus faecium VRE Yeast species 07/12/19 12:44 Blood Culture - Preliminary Blood No Growth after 72 hours Assessment and Plan Plan: 1. Bilateral Lower and upper extremities weakness. Post MRI of the cervical spine and thoracic spine that documented and you mild T1-T2 compression fracture about 10% of the [place] of the vertebrae without evidence of severe spinal stenosis, there is an evidence also of degenerative disc disease of the cervical spine with minimal foraminal stenosis, she was seen by spine surgery it was recommended to continue with current medical management no role for surgical intervention at this point in time, we will continue patient on gabapentin 300 mg orally twice every day, continue patient on tramadol 50 mg every 6 hours as needed for pain control as well. Physical therapy evaluation. 2. Multiple ecchymosis with thrombocytopenia and macrocytosis thought to be due to chronic liver disease. Initial evaluation is negative except for elevated ferritin level and iron saturation, patient would benefit from genetic testing for hemochromatosis as an outpatient including the [id number] and [id number]. 3. Lower extremity edema, anorexia and elevated INR ferritin, rule out cirrhosis of the liver. Patient has history of EGD last summer in [place] that is reported as having identified esophageal varices and workup also identified fatty liver. Report will be obtained from the office. Ultrasound negative for DVT. X-ray negative for fracture. Abdominal ultrasound revealed no ascites. Patient is status post lactulose 1 dose. 4. Right-sided pneumonia. Continue his azithromycin and ceftriaxone. 5. Anorexia and gagging on pills. Consult with speech therapy. No obvious signs of aspiration. Patient might benefit from repeat EGD. 6. Paroxysmal atrial fibrillation. Continue Xarelto 20 mg daily, Lopressor decreased to 50 mg in the morning and 25 mg in the evening 7. Recent treatment for UTI and sepsis. 8. Acute VRE UTI. Antibiotics will be transitioned to oral Zyvox. 8. Recurrent depression with possible suicidal thoughts. Patient evaluated by psychiatry and recommended resuming Remeron at 7.5 mg and continue Cymbalta 20 mg daily which was started on this admission. Patient is off Elavil. 9. Chronic lower extremity neuropathy. Continue gabapentin but decrease dose of 300 mg twice daily. 10. Macular degeneration. Stable at this time. 11. Restless leg syndrome. Continue Requip 0.5 minute gram of the time. 12. Recurrent history of herpes. Discontinue Valtrex. 13. Chronic pain. Continue tramadol 50 mg every 6 hours. 14. Protein calorie malnutrition due to poor oral intake of the protein. Patient has been seen by dietitian, continue ensure, patient may require Megace as an appetite stimulant. Discharge plan: Anticipate discharge to [facility] on Tuesday. Consults with PT and OT. Impression and plan of care have been directed as dictated by the signing physician. Shazia Celeste nurse practitioner acting as scribe for signing physician.
[2019-07-16 12:18] LABS: Liver/Kidney Microsome Antibod 1.1 UNITS (<=20)
[2019-07-16 13:02] LABS: Albumin 2.08 g/dL (3.80-4.90); Gamma Globulin 0.59 g/dL (0.70-1.50)
--- NOTE | 2019-07-16 13:05 | CDI ---
Documentation Clarification Form Date: 07/16/2019 12:30:30 PM From: Rose Gutierrez RN, CCDS Phone: Admit Date: 07/14/2019 09:03:00 AM Patient Name: Yashira Bravo Visit Number: [id number] Discharge Date: ATTENTION: The Clinical Documentation Specialists (CDI) and [facility] Coding Staff appreciate your assistance in clarifying documentation. Please respond to the clarification below the line at the bottom and electronically sign. The CDI & [facility] Coding staff will review the response and follow-up if needed. Please note: Queries are made part of the Legal Health Record. If you have any questions, please contact the author of this message via ITS. Dr. Vandana Guevara 07/13 and subsequent progress note protein calorie malnutrition has been documented and further acuity is requested. History/Risk Factors: Fatty liver disease, Paroxysmal atrial fibrillation, Clinical Indicators: 83-year-old female admitted with dehydration and pneumonia has been identified as failure to thrive. She was not eating well, poor appetite for 1-3 month per dietary consult. She has generalized weakness to the lower extremities. She has anorexia Labs: WBC 6.8 Sodium 134, BUN 18, Total Protein 5.1, Albumin 2.3, Calcium 7.7 Current BMI: 28.3 Insufficient energy intake: Yes Physical Findings: unable to visualize per dietary due to COVID-19 precautions Treatment: Ensure compact BID Dietary Consult: 07/11, 07/17 Monitor oral supplement acceptance In your professional opinion, can you please clarify if these findings signify one of the following conditions? Mild Protein-Calorie Malnutrition Moderate Protein-Calorie Malnutrition Severe Protein-Calorie Malnutrition Other condition, please specify Unable to determine (Last Revision: September 2018) MTDD
--- NOTE | 2019-07-16 13:29 | CDI ---
Documentation Clarification Form Date: 07/16/2019 01:06:51 PM From: Rose Gutierrez RN, CCDS Admit Date: 07/14/2019 09:03:00 AM Patient Name: Yashira Bravo Visit Number: [id number] Discharge Date: ATTENTION: The Clinical Documentation Specialists (CDI) and [facility] Coding Staff appreciate your assistance in clarifying documentation. Please respond to the clarification below the line at the bottom and electronically sign. The CDI & [facility] Coding staff will review the response and follow-up if needed. Please note: Queries are made part of the Legal Health Record. If you have any questions, please contact the author of this message via ITS. Dr. Vandana Guevara Coding guidelines do not allow coding professionals to code based on laboratory results; therefore, your input is requested. The COVID-19 test obtained on 07/12/19 and was reported as Negative on 07/12/19. Per case summary: 07/11 Coronavirus (PCR) Not Detected Patient history/risk factors: Sepsis, UTI, Pneumonia, CVA Clinical Indicators: 83-year-old female who present to ED on 07/11 for complaints of lower extremity pain. She was ruled in for pneumonia. In ED it is documented evaluation was limited at that time secondary to concerns regarding coronavirus. 07/11 CXR: Increased density right suprahilar region may reflect developing infiltrate 07/12 CXR: Correlate for pulmonary venous hypertension and interstitial edema, suspect small pleural effusions 07/11 Vitals signs in ED: 102/71 91 18 97.5 98 % ra 07/13 Vital signs on admission: 95/66 101 14 5/9 WBC 6.4 Treatment: Azithromycin 500 mg PO daily Rocephin 1 gm iv q 24 hrs In order to capture the severity of condition, please clarify the COVID-19 status: COVID-19 ruled out False negative, treating for COVID-19 based on these clinical indicators: Other, please specify: MTDD
--- NOTE | 2019-07-16 14:06 | CDI ---
Documentation Clarification Form Date: 07/16/2019 01:46:48 PM From: Rose Gutierrez RN, CCDS Admit Date: 07/14/2019 09:03:00 AM Patient Name: Yashira Bravo Visit Number: [id number] Discharge Date: ATTENTION: The Clinical Documentation Specialists (CDI) and [facility] Coding Staff appreciate your assistance in clarifying documentation. Please respond to the clarification below the line at the bottom and electronically sign. The CDI & [facility] Coding staff will review the response and follow-up if needed. Please note: Queries are made part of the Legal Health Record. If you have any questions, please contact the author of this message via ITS. Dr. Boris Dodge Altered Mental Status was documented in the ED general assessment and in your progress note on 07/12 as mild delirium and further specificity is requested related to lab findings. History/Risk Factors: UTI, Sepsis, Pneumonia, Metabolic Encephalopathy, Depression, Cirrhosis of liver Clinical Indicators: 83-year-old female who present on 07/11 with complaints of lower extremity pain. She was ruled in for pneumonia and UTI. 07/11 Labs: WBC 6.8, UA: Ur Leukocyte Esterase Large, urine wbc >182 07/11 Chest X Ray: Increased density right suprahilar region may reflect developing infiltrate Treatment: neurological assessment per protocol Zithromax 500 mg po daily Rocephin iv q 24 hrs, Cymbalta 20 mg po daily In your professional opinion, please clarify the etiology of the Altered Mental Status, if known. Metabolic Encephalopathy (specify Type and Underlying Medical Illness Delirium (specify cause): Other condition (please specify) Unable to determine (Last Revision: June 2017) Etiology of altered mental status/delirium is likely multifactorial. Metabolic encephalopathy is mainly due to acute UTI. However multiple vitamin B complex deficiency (particularly vitamin B1) may be contributing as well. MTDD
--- NOTE | 2019-07-16 14:36 | PN ---
PROGRESS NOTE DATE OF SERVICE: 07/16/2019 Patient is an 83-year-old pleasant white female with history of cirrhosis of the liver and prior history of esophageal varices. Was admitted to the hospital with poor oral intake and progressive weight loss for the last several weeks' duration. She denies any abdominal pain. She reports no nausea, vomiting. She denies any rectal bleeding or melena. She just states that she has significantly decreased appetite. Apparently she was brought in some breakfast and refused to eat. Dietary consult has been placed. PHYSICAL EXAMINATION: She appears comfortable, in no apparent distress. Vital signs are stable. Blood pressure is 93/61, pulse is 90, temperature is 97. HEENT: Examination unremarkable. Conjunctivae are pink, sclerae nonicteric, oral cavity no lesions. NECK: No JVD or lymph node enlargement. CHEST: Clear to auscultation. HEART: Regular rate and rhythm. ABDOMEN: Soft, nontender, nondistended. Bowel sounds are positive. No organomegaly. EXTREMITIES: No pedal edema. SKIN: No rashes. NEURO: She is alert and oriented x3, but slightly confused. No focal deficits. LABS: From July 13, WBC 6.4, hemoglobin 4.9, platelets 102, ALT and AST at 38 and 29 respectively. T-bili and alkaline phosphatase are within normal limits. IMPRESSION: 1. Decreased appetite and weight loss. Dietary in consultation, encouraged patient to eat and start her on some nutritional supplements. 2. History of cirrhosis of the liver diagnosed a year ago during an upper endoscopy. The patient was noted to have esophageal varices. At this time, she appears to have fairly compensated cirrhosis of the liver. 3. Mild elevation of the serum transaminases secondary to underlying cirrhosis of the liver. She was investigated by Dr. Jacobsen and was noted to have slightly low alpha I antitrypsin level as well as slightly decreased .. 4. History of esophageal varices but no active bleeding. RECOMMENDATIONS: 1. Increase oral intake. 2. Start her on nutritional supplements twice daily. 3. Continue with Protonix for gastroesophageal reflux disease. 4. Patient can follow up with Dr. Jacobsen in the outpatient setting in two weeks for further workup of underlying chronic liver disease. Will follow with you closely. Thank you for this consultation. MMODL / IJN: [id number] /
[2019-07-16] MEDS: LINEZOLID 600 MG TAB PO SCH ×2 (15:11→20:50)
--- NOTE | 2019-07-16 19:33 | P.PN ---
Subjective Progress Note Date: 07/16/19 Patient is laying comfortably in the bed. Continues to appear slightly confused regarding place. States is scheduled to go home tomorrow. Still complaining of weakness of the legs. Objective - Vital Signs Vital signs: Vital Signs Temp 98.1 F 07/16/19 14:58 Pulse 43 L 07/16/19 14:58 Resp 18 07/16/19 14:58 BP 105/74 07/16/19 14:58 Pulse Ox 97 07/16/19 14:58 Intake & Output 07/16/19 07/16/19 07/17/19 06:59 18:59 06:59 Other: Voiding Method Bedside Commode Bedside Commode Diaper Diaper Incontinent Incontinent # Voids 1 0 - Exam Patient's mental status is stable, still partly confused. States she is in the bank. She thinks the month is June, could not tell the year. She knows name of the current president. Could not tell name of the home town. Speech and language functions are normal. Cranial nerves are normal. 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 Hip flexion is 3+ to 4-, knee extension 5 to 5-with some giveaway weakness due to pain. Ankles and toes are normal. Patient has very significant peripheral edema over the royal bilaterally, not so much on the feet. Her shins are very tender to touch in the lower limbs. Reflexes are 1+ to 2+ in the upper limbs, 2+ at the knees, 1+ ankles and plantars are possibly upgoing. Sensory touch is equal. - Labs CBC & Chem 7: 07/14/19 08:09 07/14/19 08:09 Labs: Abnormal Lab Results - Last 24 Hours (Table) 07/13/19 Range/Units 07:37 Albumin (PEP) 2.08 L (3.80-4.90) g/dL Urdzt-[id number] 0.54 L (0.60-1.00) g/dL Beta Globulins 0.54 L (0.60-1.30) g/dL Gamma Globulins 0.59 L (0.70-1.50) g/dL Microbiology - Last 24 Hours (Table) 07/12/19 12:44 Blood Culture - Preliminary Blood No Growth after 96 hours 07/13/19 09:40 Urine Culture - Final Urine,Voided Enterococcus faecium VRE Mojgan albicans Assessment and Plan Assessment: * 83-year-old female admitted with frequent falls. Examination revealed symmetric weakness of bilateral upper and lower extremities, proximal> distal, with relatively brisk reflexes, and bilateral Babinski. No significant spinal canal stenosis noted on the cervical or thoracic spine MRI. Patient's generalized weakness likely related to combination as below. * Multiple compression fractures, probably old. * Vitamins B6 deficiency with vitamin B6 level of <2 * Folate deficiency with folate level 3.6 * Vitamin B1 deficiency with levels 31 (38-122) * Vitamin D deficiency, with level 25 * Mental confusion, likely due to vitamin B1 deficiency. Rule out underlying cognitive impairment. Plan: * MRI of cervical and thoracic spine revealed new small central disc herniation at T10-T11 minimally narrowing the ventral subarachnoid space without spinal canal stenosis. Mild compression deformity of T1 and T2 without retropulsion, chronic without bone marrow edema. Compression deformity of T11 is also chronic with retropulse as seen on the exam of 2017 resulting in mild spinal canal stenosis. Moderate multilevel degenerative disc disease of the cervical spine creating we will degrees of neural foraminal narrowing. Overall, there is no significant spinal canal stenosis. * Patient's recent B12 level is normal 1488, folate was low at 3.6, B6 <2, thia mine 31 also low. Patient has multiple vitamin deficiencies. We will start replacement. Homocystine level is 13.31. TSH normal. Ammonia normal <9. CPK is normal 25. AST mildly elevated 44, ALT 29. * PT OT and gait training. * Patient recommended to use walker to prevent falls. * Patient also appears to be somewhat confused, and disoriented. This could be related to vitamin B1 and other multiple vitamin deficiencies. Continue B1, B6, folate and vitamin D replacement. I would suggest placing patient on vitamin B6 50 mg orally daily at discharge, as high-dose vitamin B6 can produce neurotoxicity. Hopefully her memory functions will improve with B1 replacement and other vitamin. If symptoms persist, then would recommend follow-up with a neurologist locally to rule out underlying cognitive impairment. * Neurology will sign off. Please call neurology if any other concerns.
[2019-07-16] MEDS: METOPROLOL TARTRATE 25 MG TAB PO SCH (20:48)
[2019-07-16] MEDS: MIRTAZAPINE 15 MG TAB PO SCH (20:51)
[2019-07-16] MEDS: traMADol 50 MG TAB PO PRN (20:58)
[2019-07-17] MEDS: THIAMINE 100 MG/ML 2 ML VIAL IVP SCH (07:31)
[2019-07-17] MEDS: PYRIDOXINE 100 MG/ML 1 ML VIAL IVP SCH (07:32)
[2019-07-17] MEDS: LINEZOLID 600 MG TAB PO SCH (07:33)
[2019-07-17] MEDS: DULoxetine HCL 20 MG CAPSULE.DR PO SCH (07:33)
[2019-07-17] MEDS: METOPROLOL TARTRATE 50 MG TAB PO SCH (07:34)
[2019-07-17] MEDS: PANTOPRAZOLE 40 MG TABLET PO SCH (07:34)
[2019-07-17] MEDS: GABAPENTIN 300 MG CAP PO SCH (07:34)
[2019-07-17] MEDS: RIVAROXABAN 20 MG TAB PO SCH (07:34)
[2019-07-17] MEDS: FOLIC ACID 1 MG TAB PO SCH (07:35)
[2019-07-17] MEDS: AZITHROMYCIN 500 MG TAB PO SCH (07:35)
[2019-07-17 08:07] VITALS: BP 106/72; PULSE 106; RESP 15; TEMP 97.4
--- NOTE | 2019-07-17 11:14 | P.DS ---
Providers Date of admission: 07/14/19 09:03 Expected date of discharge: 07/17/19 Attending physician: Vandana Guevara Consults: 07/12/19 12:10 Consult Physician Routine Consulting Provider: Rodrigo Green Consult Reason/Comments: cirrhosis evaluation Do you want consulting provider notified?: Yes 07/12/19 12:47 Consult Physician Routine Consulting Provider: Boris Dodge Consult Reason/Comments: bilat LE weakness Do you want consulting provider notified?: Yes 07/13/19 11:40 Consult Physician Routine Consulting Provider: Lanie Fitzgerald Consult Reason/Comments: multiple compression fx Do you want consulting provider notified?: Yes 07/13/19 17:31 Consult Physician Routine Consulting Provider: John Chawla Consult Reason/Comments: patient purposely refusing to eat Do you want consulting provider notified?: Yes Primary care physician: Vandana Guevara Hospital Course: This is an 83-year-old female patient of Dr. Dr. Guevara with past medical history of CVA, paroxysmal atrial fibrillation on Xarelto, chronic pain syndrome, lumbar compression fracture and osteoporosis, restless leg syndrome, history of morbid obesity status post bariatric surgery. Patient was recently hospitalized in June and was treated for metabolic encephalopathy secondary to UTI and sepsis with generalized weakness and fatigue. Patient was also identified as failure to thrive. She was not eating well at that time. Patient was stabilized and discharged to home. Patient currently lives at home with her but her daughter has been staying with them for the past 6 weeks as the patient has not been doing well. Patient has not been eating since prior to her last admission. She has generalized weakness to the lower extremities and presents with lower extremity edema and erythema ecchymosis to the right lower extremity most likely secondary to a fall that occurred prior to her last admission. Patient also has history of having a GI workup in [place] which time she underwent EGD was found to have esophageal varices and was also told she had a fatty liver. Patient denies ever having daily alcohol intake. She does have a sister that from cirrhosis of the liver from hepatitis C. Recent outpatient lab work revealed iron 76, TIBC 112, iron saturation 67.86, ferritin 1073, vitamin B1 31, vitamin B6 less than 2 vitamin B 12 1488, vitamin D 25 134.4. Patient had outpatient CAT scan of the abdomen and pelvis done recently and this report will be obtained from the office. Patient presented to [facility] emergency center for evaluation. WBC 6.8, Hemoglobin 14.7 and platelet count 123 INR 1.9, total bilirubin 1, AST 44, ALT 29 and alkaline phosphatase 59, TSH 4.480. KUB reveals nonobstructive bowel gas pattern. Ultrasound of the right lower extremity negative for DVT. Right Tib-fib x-ray shows no acute fracture. Chest x-ray reveals increased density right suprahilar region may reflect developing infiltrate. EKG atrial fibrillation with rate controlled. Patient admitted to the [facility] floor and started on azithromycin and ceftriaxone for pneumonia, start vitamin B6 and thiamine, consult with GI for cirrhosis evaluation and neurology for bilateral lower extremity weakness. X-rays of the lumbar and thoracic spine. 07/12: Thoracic spine x-ray showed mild decompression of deformities of T7-T8, T10 that are new from 2017. Diffuse osseous demineralization, exaggerated thoracic kyphosis, mild degenerative change and old compression deformity of T11. Lumbar x-ray revealed mild compression deformity T12 is new from 2017. Old compression deformities T 11 post kyphoplasty and L5 that appears chronic. Diffuse osseous demineralization and moderate degenerative disc disease. Patient has been seen by Dr. Dodge with recommendations for MRI of the cervical and thoracic spine to rule out spinal stenosis and to assess for compression fractures. Patient has been seen by GI and patient cleared for low sodium diet as tolerated, Pepcid twice daily and full liver serologies have been ordered. Patient may benefit from gene testing for hemochromatosis in the outpatient setting. Ammonia level less than 9, total protein PEP 4, repeat INR 1.5. Urinalysis was turbid with leukoesterase large, WBCs greater than 182, bacteria moderate, yeast budding many. Patient was started on Rocephin yesterday. Urine culture in progress. Acute hepatitis panel was negative. Dr. Green has ordered 1 dose of lactulose. Ultrasound of the abdomen revealed no ultrasound evidence of ascites. Patient seen today on the [facility] floor. She has taken some pills orally but is gagging now. She states this occurs most often after she takes pills. She denies any abdominal pain. She still states she is not eating anything. She does not appear to be aspirating but consult with speech therapy will be requested. Patient may benefit by having EGD to further evaluate. Blood pressure was on the low side this morning and Lopressor decreased to 50 mg in the morning and continue 25 mg at bedtime. 07/13: Patient is lying down in bed in no apparent distress she continues to be negative not participating in any activities she is not eating and if her food at this point in time, we'll discontinue amitriptyline, discontinue Remeron, patient was seen by multiple specialties including neurology, spine surgery, and the gastroenterology, patient underwent MRI of the cervical and thoracic spine that showed degenerative disc disease of the cervical spine without significant spinal stenosis despite the weakness in upper extremities and lower extremities that is both proximal and distal and also was found to have a mild compression fracture of T1 and T2 about 10% of the vertebrae without evidence of any retropulsion, no evidence of any surgical intervention that would benefit this patient at this point in time, patient will be taken off her vitamin D again as her level was extremely elevated with 34 just a few weeks back, we will continue with folic acid 1 mg once every day continue vitamin supplements, physical therapy evaluation, social services assistant consultation for discharge planning. 07/14: Patient is lying down in bed , continues to be resistive for care and finally agreed on DEMETRICE wraps, also not eating much, was seen by Psychiatry and recommended to continue with cymbalta and added Remeron again at 7.5 mg . she denies any chest pain or shortness of breath, very poor appetite, no nausea, food does not taste good according to her, very weak and she continues to decline, social services assistant and PT consult for discharge planning. 07/15: Patient continues to refuse CPE. She is eating less than 25% for all her meals. Dietitian is following and insurance in place as well. Physical therapy is recommended subacute rehab and social work is following for discharge planning. Plan is for possible [place] tomorrow. Patient is afebrile, heart rate 90, blood pressure 93/61, pulse ox 98% on room air. Patient is followed by GI. She does have evidence of depressed alpha-1 antitrypsin, ceruloplasmin and elevated iron study and could benefit from further testing in the outpatient setting. We will plan outpatient follow-up with GI after discharge. Patient will also be scheduled for hemochromatosis gene testing in the outpatient setting as well. Urine culture is positive for VRE and ceftriaxone will be discontinued transitioned to Zyvox oral. Patient's family will be updated after rounds today. 07/16: Patient denies any new complaints. She is eating very little. She has worked with physical therapy and seems to better yesterday from previous. Family wished to take the patient home with home care. [facility] is [facility] to [facility]. She has been afebrile, heart rate 106, blood pressure 106/72, pulse ox 98% on room air. manager field service to make arrangements for transportation home coordinated with the family. Patient will be discharged home today in stable condition. Discharge diagnoses: 1. Bilateral Lower and upper extremities weakness secondary to multiple compression fractures, degenerative disc disease of cervical spine and minimal foraminal stenosis. 2. Multiple ecchymosis with thrombocytopenia and macrocytosis thought to be due to chronic liver disease. Initial evaluation is negative except for elevated ferritin level and iron saturation, patient would benefit from genetic testing for hemochromatosis as an outpatient including the [id number] and [id number]. 3. Lower extremity edema, anorexia and elevated INR ferritin, ruled in for cirrhosis of the liver. 4. Right-sided pneumonia. 5. Anorexia and gagging on pills. 6. Paroxysmal atrial fibrillation. 7. Recent treatment for UTI and sepsis. 8. Acute VRE UTI. 8. Recurrent depression with possible suicidal thoughts. 9. Chronic lower extremity neuropathy. 10. Macular degeneration. 11. Restless leg syndrome. 12. Recurrent history of herpes. 13. Chronic pain. 14. Severe protein calorie malnutrition due to poor oral intake. Discharge plan: Home with [facility]. Impression and plan of care have been directed as dictated by the signing physician. Shazia Celeste nurse practitioner acting as scribe for signing physician. Patient Condition at Discharge: Good Plan - Discharge Summary New Discharge Prescriptions: New DULoxetine HCL [Cymbalta] 20 mg PO DAILY #30 capsule. Folic Acid 1 mg PO DAILY #30 tab Pantoprazole [Protonix] 40 mg PO AC-BID #60 tablet. Mirtazapine [Remeron] 7.5 mg PO HS #30 tab Thiamine [Vitamin B-1] 100 mg PO DAILY #30 tablet Pyridoxine [Vitamin B-6] 50 mg PO DAILY #30 tablet Linezolid [Zyvox] 600 mg PO Q12HR #18 tab Continue Rivaroxaban [Xarelto] 20 mg PO DAILY Maculapro 1 tab PO DAILY traMADol HCl [Ultram] 50 mg PO Q6H PRN #12 tab PRN Reason: Breakthrough Pain Ondansetron [Zofran] 4 mg PO Q6H PRN PRN Reason: Nausea Metoprolol Tartrate [Lopressor] 25 mg PO HS Changed Gabapentin 300 mg PO BID #0 Metoprolol Tartrate [Lopressor] 50 mg PO QAM #0 rOPINIRole HCL [Requip] 0.5 mg PO HS #0 Discontinued rOPINIRole HCL [Requip] 0.5 mg PO QAM valACYclovir HCL [Valacyclovir] 1,000 mg PO DAILY Amitriptyline HCl [Elavil] 50 tab PO HS #0 Mirtazapine [Remeron] 15 mg PO W/SUPPER #30 tab Gabapentin 900 mg PO HS Discharge Medication List Maculapro 1 tab PO DAILY 10/13/17 [History] Rivaroxaban [Xarelto] 20 mg PO DAILY 10/13/17 [History] traMADol HCl [Ultram] 50 mg PO Q6H PRN #12 tab 06/27/19 [Rx] Metoprolol Tartrate [Lopressor] 25 mg PO HS 07/12/19 [History] Ondansetron [Zofran] 4 mg PO Q6H PRN 07/12/19 [History] DULoxetine HCL [Cymbalta] 20 mg PO DAILY #30 capsule. 07/17/19 [Rx] Folic Acid 1 mg PO DAILY #30 tab 07/17/19 [Rx] Gabapentin 300 mg PO BID #0 07/17/19 [Rx] Linezolid [Zyvox] 600 mg PO Q12HR #18 tab 07/17/19 [Rx] Metoprolol Tartrate [Lopressor] 50 mg PO QAM #0 07/17/19 [Rx] Mirtazapine [Remeron] 7.5 mg PO HS #30 tab 07/17/19 [Rx] Pantoprazole [Protonix] 40 mg PO AC-BID #60 tablet. 07/17/19 [Rx] Pyridoxine [Vitamin B-6] 50 mg PO DAILY #30 tablet 07/17/19 [Rx] Thiamine [Vitamin B-1] 100 mg PO DAILY #30 tablet 07/17/19 [Rx] rOPINIRole HCL [Requip] 0.5 mg PO HS #0 07/17/19 [Rx] Follow up Appointment(s)/Referral(s): Vandana Guevara MD [Primary Care Provider] - 1-2 days (Please call office to make appointment. office not open) Lanie Fitzgerald DO [Doctor of Osteopathic Medicine] - As Needed (Patient may follow-up with Mike Pack PA-C or Dr. Wild Fitzgerald at [facility] on an as-needed basis following discharge. ) [facility] Visiting Nurse, [NON-STAFF] - Patient Instructions/Handouts: Dehydration (DC), Weakness (DC) Discharge Disposition: HOME WITH HOME HEALTH SERVICES
== END 2019-07-17 11:00 | disposition home health service (06) | DRG 193 ==
LOC: EC 08:28 → 4SSUR 12:19 → OBSVTOIN 07-14 09:03
PROVIDERS: ADMIT Internal Medicine; ATTEND Internal Medicine
DX: J18.9 Pneumonia, unspecified organism (principal); E43 Unspecified severe protein-calorie malnutrition; G93.41 Metabolic encephalopathy; I85.10 Secondary esophageal varices without bleeding; R45.851 Suicidal ideations; F33.9 Major depressive disorder, recurrent, unspecified; M48.56XA Collapsed vertebra, not elsewhere classified, lumbar region, initial encounter for fracture; M48.54XA Collapsed vertebra, not elsewhere classified, thoracic region, initial encounter for fracture; N39.0 Urinary tract infection, site not specified; E51.9 Thiamine deficiency, unspecified; Z16.21 Resistance to vancomycin; Z20.828 Contact with and (suspected) exposure to other viral communicable diseases; D69.6 Thrombocytopenia, unspecified; M48.04 Spinal stenosis, thoracic region; R62.7 Adult failure to thrive; K76.0 Fatty (change of) liver, not elsewhere classified; K74.60 Unspecified cirrhosis of liver; I48.0 Paroxysmal atrial fibrillation; M19.90 Unspecified osteoarthritis, unspecified site; H35.30 Unspecified macular degeneration; G89.4 Chronic pain syndrome; G25.81 Restless legs syndrome; E86.0 Dehydration; G57.90 Unspecified mononeuropathy of unspecified lower limb; B00.9 Herpesviral infection, unspecified; K59.00 Constipation, unspecified; M40.204 Unspecified kyphosis, thoracic region; I65.23 Occlusion and stenosis of bilateral carotid arteries; D18.09 Hemangioma of other sites; M51.36 Other intervertebral disc degeneration, lumbar region; M79.661 Pain in right lower leg; M79.662 Pain in left lower leg; R60.0 Localized edema; R20.9 Unspecified disturbances of skin sensation; M51.37 Other intervertebral disc degeneration, lumbosacral region; E53.8 Deficiency of other specified B group vitamins; R29.6 Repeated falls; E55.9 Vitamin D deficiency, unspecified; D75.89 Other specified diseases of blood and blood-forming organs; K20.9 Esophagitis, unspecified; R40.2362 Coma scale, best motor response, obeys commands, at arrival to emergency department; R40.2142 Coma scale, eyes open, spontaneous, at arrival to emergency department; R40.2242 Coma scale, best verbal response, confused conversation, at arrival to emergency department; B95.2 Enterococcus as the cause of diseases classified elsewhere; M50.30 Other cervical disc degeneration, unspecified cervical region; S80.11XA Contusion of right lower leg, initial encounter; H91.90 Unspecified hearing loss, unspecified ear; Z68.28 Body mass index [BMI] 28.0-28.9, adult; Z79.899 Other long term (current) drug therapy; Z79.01 Long term (current) use of anticoagulants; Z86.73 Personal history of transient ischemic attack (TIA), and cerebral infarction without residual deficits; Z87.19 Personal history of other diseases of the digestive system; Z90.710 Acquired absence of both cervix and uterus; Z90.49 Acquired absence of other specified parts of digestive tract; Z98.84 Bariatric surgery status; Z98.890 Other specified postprocedural states; Z87.440 Personal history of urinary (tract) infections; Z91.81 History of falling; Z83.79 Family history of other diseases of the digestive system; Z82.49 Family history of ischemic heart disease and other diseases of the circulatory system; Z81.8 Family history of other mental and behavioral disorders; Z81.1 Family history of alcohol abuse and dependence; Z80.3 Family history of malignant neoplasm of breast; Z83.3 Family history of diabetes mellitus
CPT/HCPCS: 36415; 71046; 72072; 72100; 72141; 72146; 74018; 76705; 80053; 80074; 81001; 82103; 82140; 82390; 83516; 83605; 83735; 84165; 84443; 85025; 85027; 85610; 85730; 86038; 86376; 87040; 87077; 87086; 87186; 87635; 93005; 93970; 96365; 99285